=== PATIENT | female | born 1995 | race Caucasian/White ===

== ENCOUNTER → 2021-04-01 15:36 | Outpatient (BNVA) | payer BC, SELFPAY | PROVIDERS: Visit Provider Advanced Practice Midwife ==

== ENCOUNTER 2021-05-13 08:24 | Outpatient (REF) | payer BC, SELFPAY ==
[2021-05-14 01:25] LABS: CT PCR NOT DETECTED (Not Detect.); NG PCR NOT DETECTED (Not Detect.)
== END 2021-05-13 08:25 | disposition home or self-care (01) ==
LOC: HO.LAB 08:24
PROVIDERS: Visit Provider Advanced Practice Midwife
DX: Z01.419 Encounter for gynecological examination (general) (routine) without abnormal findings (principal); Z11.3 Encounter for screening for infections with a predominantly sexual mode of transmission
CPT/HCPCS: 87491; 87591; 88142

== ENCOUNTER → 2021-07-20 14:04 | Outpatient (BNVA) | payer BC, SELFPAY | PROVIDERS: Visit Provider Advanced Practice Midwife | DX: Z30.430 Encounter for insertion of intrauterine contraceptive device (principal) | CPT/HCPCS: 58300; 81025 ==

== ENCOUNTER → 2021-08-24 08:33 | Outpatient (BNVA) | payer BC, SELFPAY | PROVIDERS: Visit Provider Advanced Practice Midwife | DX: Z30.431 Encounter for routine checking of intrauterine contraceptive device (principal) | CPT/HCPCS: 99212 ==

== ENCOUNTER 2022-01-14 11:28 | Outpatient (REF) | payer BC, SELFPAY | END 2022-01-14 11:29 | disposition home or self-care (01) | LOC: HO.LNP 11:28 | PROVIDERS: Visit Provider Internal Medicine | DX: N30.90 Cystitis, unspecified without hematuria (principal) | CPT/HCPCS: 87086; 87088; 87186 ==

== ENCOUNTER 2022-03-05 08:36 | Outpatient (REF) | payer BC, SELFPAY ==
[2022-03-05 09:16] LABS: Binax Internal Control QC Valid; Binax Now Covid-19 Ag Negative (Negative)
== END 2022-03-05 08:37 | disposition home or self-care (01) ==
LOC: HO.HMGCLDS 08:36
PROVIDERS: PCP Internal Medicine; Visit Provider Emergency Medicine
DX: Z20.822 Contact with and (suspected) exposure to COVID-19 (principal); J06.9 Acute upper respiratory infection, unspecified
CPT/HCPCS: 87811; C9803

== ENCOUNTER 2022-05-17 09:02 | Outpatient (REF) | payer BC, SELFPAY ==
[2022-05-17 14:16] LABS: CT PCR NOT DETECTED (Not Detect.); NG PCR NOT DETECTED (Not Detect.)
[2022-05-18 09:27] LABS: BV Int Neg Control Negative (Negative); BV Int Pos Control Positive (Positive)
== END 2022-05-17 09:03 | disposition home or self-care (01) ==
LOC: HO.LNP 09:02
PROVIDERS: Visit Provider Advanced Practice Midwife
DX: Z01.419 Encounter for gynecological examination (general) (routine) without abnormal findings (principal); Z11.3 Encounter for screening for infections with a predominantly sexual mode of transmission
CPT/HCPCS: 87480; 87491; 87510; 87591; 87660

== ENCOUNTER 2022-08-12 11:36 | Outpatient (REF) | payer BC, SELFPAY ==
[2022-08-13 10:02] LABS: BV Int Neg Control Negative (Negative); BV Int Pos Control Positive (Positive)
== END 2022-08-12 11:37 | disposition home or self-care (01) ==
LOC: HO.LNP 11:36
PROVIDERS: Visit Provider Internal Medicine
DX: N76.0 Acute vaginitis (principal); B96.89 Other specified bacterial agents as the cause of diseases classified elsewhere
CPT/HCPCS: 87480; 87510; 87660

== ENCOUNTER 2022-09-15 11:34 | Outpatient (REF) | payer BC, SELFPAY | END 2022-09-15 11:35 | disposition home or self-care (01) | LOC: HO.LAB 11:34 | PROVIDERS: PCP Internal Medicine; Visit Provider Advanced Practice Midwife | DX: Z13.89 Encounter for screening for other disorder (principal) ==

== ENCOUNTER 2022-09-15 12:12 | Outpatient (REF) | payer OTHER, SELFPAY ==
[2022-09-16 03:19] LABS: CT PCR NOT DETECTED (Not Detect.); NG PCR NOT DETECTED (Not Detect.)
[2022-09-16 10:02] LABS: BV Int Neg Control Negative (Negative); BV Int Pos Control Positive (Positive)
== END 2022-09-15 12:13 | disposition home or self-care (01) ==
LOC: HO.LNP 12:12
PROVIDERS: Visit Provider Advanced Practice Midwife
DX: R10.2 Pelvic and perineal pain (principal); N89.8 Other specified noninflammatory disorders of vagina
CPT/HCPCS: 0353U; 87480; 87510; 87660

== ENCOUNTER 2022-09-23 12:47 | Outpatient (REF) | payer OTHER, SELFPAY ==
--- NOTE | ~2022-09-23 | US_ITS ---
EXAMINATION: US PELVIS CLINICAL INFORMATION: Pelvic and perineal pain. COMPARISON: None available. TECHNIQUE: Ultrasound of the pelvis is performed using both transabdominal and transvaginal transducers along with Doppler. Transvaginal imaging is performed due to inadequate visualization transabdominally. FINDINGS: Uterus: The uterus is anteverted and measures 7.7 x 3.6 x 4.5 cm. The double wall endometrial thickness is 4.2 mm. The uterus is smooth in contour and has normal myometrial echogenicity. No visible fibroid. Adnexa: Both ovaries are visualized. There is normal color flow to the adnexa. There is no ovarian torsion. There is no pelvic ascites or fluid collection. Right ovary measures 6.3 x 3.0 x 4.6 cm. Volume 45 mL. There is a 5.7 cm simple cyst. Left ovary measures 5.5 x 3.1 x 3.6 cm. Volume 32 mL. There is a corpus luteal cyst. US/US pelvic and transvaginal IMPRESSION: 5.7 cm simple cyst in the right ovary. Best practice recommendation: This is a probable benign cyst. Recommend follow-up US in 3-6 months. Note: This recommendation does not apply to premenarchal patients and to those with increased risk (genetic, family history, elevated tumor markers or other high-risk factors) of ovarian cancer. Reference: Radiology. 2019 Nov; 293(2):359-371
== END 2022-09-23 12:48 | disposition home or self-care (01) ==
LOC: HO.HMGCX 12:47
PROVIDERS: PCP Internal Medicine; Visit Provider Advanced Practice Midwife
DX: R10.2 Pelvic and perineal pain (principal)
CPT/HCPCS: 76830; 76856

== ENCOUNTER → 2022-10-14 13:33 | Outpatient (BNVA) | payer OTHER, SELFPAY | PROVIDERS: PCP Internal Medicine; Visit Provider Advanced Practice Midwife ==

== ENCOUNTER 2022-12-20 12:44 | Outpatient (REF) | payer OTHER, BC, SELFPAY ==
--- NOTE | ~2022-12-20 | US_ITS ---
EXAMINATION: US PELVIS CLINICAL INFORMATION: History of right ovarian cyst; irregular menses; the last menstrual period is not specified. COMPARISON: Pelvic ultrasound dated 09/23/2022. TECHNIQUE: Ultrasound of the pelvis is performed using both transabdominal and transvaginal transducers along with Doppler. Transvaginal imaging is performed due to inadequate visualization transabdominally. FINDINGS: Uterus: The uterus is anteverted and measures 6.9 x 3.0 x 4.9 cm. An intrauterine device is seen, properly situated within the endometrial canal. The double wall endometrial thickness is very thin and poorly visualized secondary to the patient's intrauterine device. The uterus is smooth in contour and has normal myometrial echogenicity. No visible fibroid. Adnexa: Both ovaries are visualized. There is normal color flow to the adnexa. There is no ovarian torsion. There is a small amount of free fluid in the cul-de-sac. Right ovary measures 3.7 x 2.1 x 2.1 cm, volume 8.2 mL. The right ovary contains a 1.2 cm maximal diameter exophytic dominant simple follicle. Left ovary measures 4.5 x 2.6 x 3.2 cm, volume 19.7 mL. A 1.2 cm exophytic dominant simple follicle is noted. A 1.7 x 5.6 x 1.9 cm resorbing hemorrhagic cyst is noted, with fine central reticulations. US/US pelvic and transvaginal IMPRESSION: 1. Bilateral ovarian cysts are noted, as detailed. The previously noted large right ovarian cyst has resolved in the interim. 2. And intrauterine device is seen, properly situated within the endometrial canal. 3. There is a small amount of free fluid in cul-de-sac.
== END 2022-12-20 12:45 | disposition home or self-care (01) ==
LOC: HO.HMGCX 12:44
PROVIDERS: PCP Internal Medicine; Visit Provider Advanced Practice Midwife
DX: N83.201 Unspecified ovarian cyst, right side (principal)
CPT/HCPCS: 76830; 76856

== ENCOUNTER 2023-01-04 09:06 | Outpatient (AMB) | payer OTHER, SELFPAY ==
[2023-01-04 09:09] VITALS: BP 112/70; BMI 26.2
--- NOTE | 2023-01-04 09:09 | A.OFFVIS_ITS ---
Intake Vital Signs 01/04/23 09:09 Height 5 ft 7 in Weight 167 lb BMI 26.2 BP 112/70 Intake Visit Reasons: US Follow Up Intake Note: pt c/o bv The patient agreed to use of a electromedical service engineer during this encounter. Scribed for RADHA Jimenez by Leticia Perez electromedical service engineer, on 01/04/2023 at 9:46 am EST. Allergies No Known Allergies Allergy (Verified 01/04/23 09:10) HPI HPI Comments History of Present Illness Details She is here to discuss US results regarding history of right ovarian cyst. She also complains of breast pain of right breast x 1-2months, on same side of former fibroadenoma removal. Reports partner has a genital bacterial rash and is using a nasal medication. She reports being prone to BV and wants check due to discharge. Light spotting with cycles with her Kyleena. She denies any pelvic pain. FMHX maternal aunt; breast cancer STD testing offered; she declines. [facility] Medical History Acne vulgaris Alopecia Asthma Fibroadenoma of right breast (Unknown) Mild intermittent asthma Right ovarian cyst Surgical History Hx of wisdom tooth extraction Family History Paternal Grandfather Colon cancer Maternal Grandmother Mesothelioma Maternal Uncle Substance use disorder Mental health disorder Alcoholism Brother Substance use disorder Alcoholism Maternal Grandmother Substance use disorder Mental health disorder Maternal Grandfather Substance use disorder Maternal Aunt Mental health disorder Breast cancer Social History Housing: Condominium Alcohol intake: never Patient Tobacco Use Status: Never used Tobacco e-Cigarette/Vaping Use: Never Used service: No Current occupational status: employed 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 Sexual orientation: Straight/Heterosexual Gender identity: Female Cognitive needs: No Hearing needs: No Vision needs: No Female Reproductive History Menstrual Age of Menarche: 13 control method: progestin IUCD (Kyleena IUD strings palpable 01/04/23) Physical Exam Vital Signs: Last Vital Signs BP 112/70 01/04/23 09:09 BMI result Body Mass Index 26.2 Const General: cooperative, healthy appearing, comfortable, no acute distress, well developed, alert and awake Chest Other: scar at 1-2:00, tender over the 1-2:00 position adjacent to areola Chest palpation & inspection: normal inspection of the chest and normal palpation of entire chest wall Breast/axilla inspection: normal inspection of the breasts and normal inspection of the axillae Breast/axilla palpation: normal palpation of the breasts and normal palpation of the axillae Other: General: Yes bladder normal to palpation External Female Exam: normal external appearance and normal appearance of the urethra Speculum Exam - Vagina: normal appearance of the vagina, normal palpation and normal vaginal discharge Speculum Exam - Cervix: normal appearance of the cervix, normal palpation and Other cervical findings present (IUD strings palpable) Bimanual exam- vagina & uterus: normal bimanual exam, normal palpation, bladder normal to palpation and normal palpation Bimanual Exam- Adnexa, other: normal adnexae and no masses Results Reviewed Results Reviewed: EXAMINATION:? US PELVIS CLINICAL INFORMATION:? History of right ovarian cyst; irregular menses; the last menstrual period is not specified. COMPARISON: Pelvic ultrasound dated 09/23/2022. TECHNIQUE: Ultrasound of the pelvis is performed using both transabdominal and transvaginal transducers along with Doppler. Transvaginal imaging is performed due to inadequate visualization transabdominally. FINDINGS: Uterus: The uterus is anteverted and measures 6.9 x 3.0 x 4.9 cm.? An intrauterine device is seen, properly situated within the endometrial canal. The double wall endometrial thickness is very thin and poorly visualized secondary to the patient's intrauterine device.? The uterus is smooth in contour and has normal myometrial echogenicity. ? No visible fibroid. Adnexa: Both ovaries are visualized. There is normal color flow to the adnexa. There is no ovarian torsion. There is a small amount of free fluid in the cul-de-sac. Right ovary measures 3.7 x 2.1 x 2.1 cm, volume 8.2 mL. The right ovary contains a 1.2 cm maximal diameter exophytic dominant simple follicle. Left ovary measures 4.5 x 2.6 x 3.2 cm, volume 19.7 mL. A 1.2 cm exophytic dominant simple follicle is noted. A 1.7 x 5.6 x 1.9 cm resorbing hemorrhagic cyst is noted, with fine central reticulations. US/US pelvic and transvaginal IMPRESSION: ? 1. Bilateral ovarian cysts are noted, as detailed. The previously noted large right ovarian cyst has resolved in the interim. ? 2. And intrauterine device is seen, properly situated within the endometrial canal. ? 3. There is a small amount of free fluid in cul-de-sac. Assessment & Plan Assessment & Plan (1) Encounter to discuss test results: Code(s): Z71.2 - Person consulting for explanation of examination or test findings Plan: Discussed: US findings of: 1. Bilateral ovarian cysts are noted, as detailed. The previously noted large right ovarian cyst has resolved in the interim. 2. And intrauterine device is seen, properly situated within the endometrial canal. 3. There is a small amount of free fluid in cul-de-sac. BV testing done today. Await results and treat accordingly. Dx. Mammogram and breast US ordered. All of her questions and concerns were addressed to the best of my ability and shared decision making. She is agreeable to plan of care. (2) Vaginal itching: Code(s): N89.8 - Other specified noninflammatory disorders of vagina (3) Breast pain, right: Code(s): N64.4 - Mastodynia Orders: Orders MM tomosynthesis diagnostic BI Today N64.4 - Mastodynia, Z12.31 - Encounter for screening mammogram for malignant neoplasm of breast US breast RT complete Today N64.4 - Mastodynia Bacterial Vaginosis Panel Today N89.8 - Other specified noninflammatory disorders of vagina Coding Level of Care Code Est Pt Level 4 (90279) Diagnoses Encounter to discuss test results Z71.2 Vaginal itching N89.8 Breast pain, right N64.4
== END 2023-01-04 09:57 | disposition home or self-care (01) ==
LOC: HO.HWS 09:06
PROVIDERS: PCP Internal Medicine; Visit Provider Advanced Practice Midwife
DX: Z71.2 Person consulting for explanation of examination or test findings (principal); N89.8 Other specified noninflammatory disorders of vagina; N64.4 Mastodynia
CPT/HCPCS: 99214

== ENCOUNTER 2023-01-04 09:06 | Outpatient (REF) | payer OTHER, SELFPAY ==
[2023-01-05 14:53] LABS: BV Int Neg Control Negative (Negative); BV Int Pos Control Positive (Positive)
== END 2023-01-04 09:07 | disposition home or self-care (01) ==
LOC: HO.LAB 09:06
PROVIDERS: PCP Internal Medicine; Visit Provider Advanced Practice Midwife
DX: N89.8 Other specified noninflammatory disorders of vagina (principal); N64.4 Mastodynia; Z71.2 Person consulting for explanation of examination or test findings
CPT/HCPCS: 87480; 87510; 87660

== ENCOUNTER 2023-02-02 12:50 | Outpatient (REF) | payer OTHER, SELFPAY ==
--- NOTE | ~2023-02-02 | US_ITS ---
EXAMINATION: US DIAGNOSTIC ULTRASOUND BREAST, RIGHT CLINICAL INFORMATION: 28-year-old female complaining of mastoid tiny right breast approximately 1-2:00 axis adjacent to right periareolar. Patient had fibroadenoma removed in this region. Patient states pain comes and goes with her cycle. COMPARISON: None available. TECHNIQUE: Ultrasound of the right breast is performed with real-time islas scale imaging and color Doppler. Special attention was paid to the area of mastodynia as indicated by the patient. FINDINGS: There is no focal suspicious finding. There is no solid mass, cystic abnormality, architectural abnormality, duct ectasia, or edema in the soft tissue planes. Only extremely dense normal-appearing fibrous breast tissue is identified. Results were discussed with the patient at time of visit. US/US breast RT limited mamm only IMPRESSION: No sonographic abnormality or correlate to the region of breast pain right breast 1-2 o'clock axis. Only normal dense parenchyma is imaged. Recommend clinical management of patient's complaints of mastodynia. ASSESSMENT: BI-RADS 1: Negative RECOMMENDATION: 1. Patient should be managed based on the clinical impression. Decision to proceed with biopsy should be based on clinical grounds and degree of clinical concern. This patient's information was entered into a reminder system with a target due date for their next mammogram.
== END 2023-02-02 12:51 | disposition home or self-care (01) ==
LOC: HO.MAMMO 12:50
PROVIDERS: PCP Internal Medicine; Visit Provider Advanced Practice Midwife
DX: N64.4 Mastodynia (principal)
CPT/HCPCS: 76642

== ENCOUNTER → 2023-02-02 12:53 | Outpatient (BNV) | payer OTHER, SELFPAY | PROVIDERS: PCP Internal Medicine; Visit Provider Radiology Diagnostic Radiology | DX: N64.4 Mastodynia (principal) | CPT/HCPCS: 76642 ==

== ENCOUNTER 2023-02-24 13:07 | Outpatient (AMB) | payer OTHER, SELFPAY ==
--- NOTE | 2023-02-24 13:10 | MHC.OFFVIS ---
Intake Vital Signs 02/24/23 13:11 Height 5 ft 7 in Weight 167 lb BMI 26.2 BP 110/70 Intake Visit Reasons: Breast US follow up Intake Note: The patient agreed to use of a medical doctor nuclear medicine during this encounter. Scribed for RADHA Jimenez by Leticia Perez medical doctor nuclear medicine, on 02/24/2023 at 1:32 pm EST. Allergies No Known Allergies Allergy (Verified 02/24/23 13:11) HPI HPI Comments History of Present Illness Details She is here to discuss Breast US results regarding right sided breast pain in the area of the fibroadenoma was removed. She is still experiencing right sided breast pain, it is not worsening. Reports she wears a sports bra. Denies feeling lumps or bumps in breast. [facility] Medical History Breast pain, right Right ovarian cyst Acne vulgaris Mild intermittent asthma Fibroadenoma of right breast (Unknown) Asthma Alopecia Surgical History Hx of wisdom tooth extraction Family History Paternal Grandfather Colon cancer Maternal Grandmother Mesothelioma Maternal Uncle Substance use disorder Mental health disorder Alcoholism Brother Substance use disorder Alcoholism Maternal Grandmother Substance use disorder Mental health disorder Maternal Grandfather Substance use disorder Maternal Aunt Mental health disorder Breast cancer Social History Housing: Condominium Alcohol intake: never Patient Tobacco Use Status: Never used Tobacco e-Cigarette/Vaping Use: Never Used service: No Current occupational status: employed 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 Patient had fibroadenoma removed in this region. Patient states pain comes and goes with her cycle. COMPARISON: None available. TECHNIQUE: Ultrasound of the right breast is performed with real-time islas scale imaging and color Doppler. Special attention was paid to the area of mastodynia as indicated by the patient. FINDINGS: There is no focal suspicious finding. There is no solid mass, cystic abnormality, architectural abnormality, duct ectasia, or edema in the soft tissue planes. Only extremely dense normal-appearing fibrous breast tissue is identified. Results were discussed with the patient at time of visit. US/US breast RT limited mamm only IMPRESSION: No sonographic abnormality or correlate to the region of breast pain right breast 1-2 o'clock axis. Only normal dense parenchyma is imaged. Recommend clinical management of patient's complaints of mastodynia. ASSESSMENT: BI-RADS 1: Negative RECOMMENDATION: 1. Patient should be managed based on the clinical impression. Decision to proceed with biopsy should be based on clinical grounds and degree of clinical concern. This patient's information was entered into a reminder system with a target due date for their next mammogram. Assessment & Plan Assessment & Plan (1) Encounter to discuss test results: Code(s): Z71.2 - Person consulting for explanation of examination or test findings Plan: Discussed: Breast US findings: BI-RADS 1: Negative All of her questions and concerns were addressed to the best of my ability and shared decision making. She is agreeable to plan of care. (2) Breast pain, right: Code(s): N64.4 - Mastodynia Plan: Recommend trying OTC Arnica gel for pain management. Continue to wear comfortable undergarment. Follow up prn, Annual 05/2023. Coding Level of Care Code Est Pt Level 3 (76278) Diagnoses Encounter to discuss test results Z71.2 Breast pain, right N64.4
[2023-02-24 13:11] VITALS: BP 110/70; BMI 26.2
== END 2023-02-24 15:00 | disposition home or self-care (01) ==
PROVIDERS: PCP Internal Medicine; Visit Provider Advanced Practice Midwife
DX: Z71.2 Person consulting for explanation of examination or test findings (principal); N64.4 Mastodynia
CPT/HCPCS: 99213

== ENCOUNTER → 2023-02-24 13:07 | Outpatient (BNVA) | payer OTHER, SELFPAY | PROVIDERS: PCP Internal Medicine; Visit Provider Advanced Practice Midwife ==

== ENCOUNTER 2023-05-14 09:27 | Outpatient (AMB) | payer OTHER, SELFPAY ==
--- NOTE | 2023-05-14 10:42 | AM.OFFWIN_ITS ---
Intake Vital Signs 05/14/23 10:44 Height 5 ft 7 in Weight 171 lb BMI 26.8 BP 118/80 Blood Pressure Location Rt brachial Position Sitting Pulse 105 H Pulse Source Pulse Oximeter Temp 99.1 F Temp Source Oral Pulse Oximetry (%) 96 Oxygen Delivery Method Room Air Intake Visit Reasons: EP, fever,vomiting, nausea ([phone]) Intake Note: Pt is here today c/o fever,vomting, nausea and bodyache x2days Patient Tobacco Use Status: Never used Tobacco Allergies No Known Allergies Allergy (Verified 05/20/23 09:36) Do you need a note to return to daycare/school/sports/work: Yes HPI EP, fever,vomiting, nausea ([phone]) HPI Details Patient is a 28-year-old female comes to the walk-in clinic complaining of 4 days fever symptoms, body aches, malaise, nausea and vomiting. She states that she has a chronic mild cough due to a tickle in the back of her throat, with mild sore throat. Vomiting has resolved today, but other symptoms persist. She did not check for COVID yet. No known sick contacts reported. She states she had influenza last year and symptoms feel similar to her. No diarrhea, abdominal pain, weakness, dizziness or headache, shortness of breath or chest pain, significant cough, or other significant associated symptoms. [facility] Medical History Breast pain, right Right ovarian cyst Acne vulgaris Mild intermittent asthma Fibroadenoma of right breast (Unknown) Asthma Alopecia Surgical History Hx of wisdom tooth extraction Family History Paternal Grandfather Colon cancer Maternal Grandmother Mesothelioma Maternal Uncle Substance use disorder Mental health disorder Alcoholism Brother Substance use disorder Alcoholism Maternal Grandmother Substance use disorder Mental health disorder Maternal Grandfather Substance use disorder Maternal Aunt Mental health disorder Breast cancer Social History Housing: Condominium Alcohol intake: never Patient Tobacco Use Status: Never used Tobacco e-Cigarette/Vaping Use: Never Used service: No Current occupational status: employed 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 Sexual orientation: Straight/Heterosexual Gender identity: Female Cognitive needs: No Hearing needs: No Vision needs: No Female Reproductive History Menstrual Age of Menarche: 13 Review of Systems Const All systems reviewed & are unremarkable except as noted in HPI and below Physical Exam Vital Signs: Last Vital Signs Temp 99.1 F 05/14/23 10:44 Pulse 105 H 05/14/23 10:44 BP 118/80 05/14/23 10:44 Pulse Ox 96 05/14/23 10:44 Oxygen Delivery Method Room Air 05/14/23 10:44 BMI result Body Mass Index 26.8 Const General: cooperative, alert, awake, Physically active, acute distress mild, ill appearing, tired appearing and well groomed; No comfortable, anxious, diaphoretic, intoxicated appearing or poor hygiene Nutritional Appearance: average body habitus Orientation/consciousness: patient oriented x3 Limitations: no limitations HEENT Head: Yes normal to inspection, Yes normocephalic and Yes atraumatic Ears: hearing grossly normal bilaterally, external ears normal, TM's normal bilaterally and EAC's normal General nose exam: Normal external nose present, Normal nares present, Normal nasal mucous membranes and turbinates present, Normal septum present and No nasal discharge present Face and sinus: Yes normal facial exam, Yes sinuses nontender and Yes face symmetric Mouth: Normal oral and palatal mucosa present, lip normal and tongue normal Throat: Yes abnormal tonsil (mildly erythematous bilaterally), No peritonsillar mass, No uvular edema and No cobblestoning Eyes General: appearance normal, both eyes and all related structures Neck Neck: Yes normal visual inspection, Yes no lymphadenopathy, Yes trachea midline, Yes supple and No anterior neck swelling Resp Effort & Inspection: normal respiratory effort, able to speak in complete sentences, no audible wheezes, no cough, no grunting, not labored, no nasal flaring, no retractions and symmetric chest movement Auscultation: clear to auscultation bilaterally, no crackles, no rales, no rhonchi, no wheezes, lung sounds not diminished and No rub present Cardio Palpation: normal PMI Rate: regular rate Rhythm: regular rhythm Heart sounds: S1 normal heart sound present and S2 normal heart sound present Skin Other: Good color, warm and dry Neuro General: patient oriented x3 Psych Appearance: grossly normal Mental Status: mental status grossly normal Speech and movement: Normal speech and movement present Affect: normal affect Attitude: cooperative Thought process: Normal thought process present Insight: Good insight present (Psych) Judgement: Good judgement present (Psych) Assessment & Plan Assessment & Plan (1) Viral syndrome: Code(s): B34.9 - Viral infection, unspecified Plan: Patient is a 28-year-old female with apparent viral syndrome. Pending results of COVID testing as well as flu COVID and RSV PCR. Patient states symptoms feel similar to when she had flu last year. She is 4 days into symptoms and too late for Tamiflu at this point. She is still symptomatic so cannot return to work at this time, so I wrote her a note to excuse her. Adequate hydration and supportive care was discussed. She knows to follow up if symptoms persist or worsen. Orders: Orders SARS-CoV2/FLU/RSV 05/14/23 R05.9 - Cough, unspecified BinaxNOW Covid-19 Ag 05/14/23 Z20.822 - Contact with and (suspected) exposure to COVID-19 Medications: New ondansetron 4 mg PO TID PRN 15 tabs 0RF nausea and vomiting 5 days Coding Level of Care Code Est Pt Level 4 (78604) Diagnoses Viral syndrome B34.9
[2023-05-14 10:44] VITALS: BP 118/80; PULSE 105; TEMP 37.3; O2SAT 96; BMI 26.8
== END 2023-05-14 11:28 | disposition home or self-care (01) ==
PROVIDERS: PCP Internal Medicine; Visit Provider Physician Assistant Medical
DX: B34.9 Viral infection, unspecified (principal)
CPT/HCPCS: 99051; 99214

== ENCOUNTER 2023-05-14 11:18 | Outpatient (REF) | payer OTHER, SELFPAY ==
[2023-05-14 11:34] LABS: Binax Internal Control QC Valid; Binax Now Covid-19 Ag Positive (Negative); Binax Performed by: PAULP
[2023-05-14 14:31] LABS: Influenza A PCR NEGATIVE (Negative); Influenza B PCR NEGATIVE (Negative); Resp Syncy Virus RNA Qual PCR NEGATIVE (Negative); SARS COV2 PCR INHOUSE POSITIVE (Negative)
== END 2023-05-14 11:19 | disposition home or self-care (01) ==
LOC: HO.HMGCLDS 11:18
PROVIDERS: PCP Internal Medicine; Visit Provider Physician Assistant Medical
DX: Z11.52 Encounter for screening for COVID-19 (principal); Z20.822 Contact with and (suspected) exposure to COVID-19; R05.9 Cough, unspecified
CPT/HCPCS: 0241U; 87811; C9803

== ENCOUNTER 2023-05-20 08:52 | Outpatient (REF) | payer BC, SELFPAY ==
[2023-05-21 11:56] LABS: BV Int Neg Control Negative (Negative); BV Int Pos Control Positive (Positive)
== END 2023-05-20 08:53 | disposition home or self-care (01) ==
LOC: HO.LNP 08:52
PROVIDERS: Visit Provider Advanced Practice Midwife
DX: Z01.419 Encounter for gynecological examination (general) (routine) without abnormal findings (principal); N76.0 Acute vaginitis
CPT/HCPCS: 87480; 87510; 87660

== ENCOUNTER 2023-05-20 08:52 | Outpatient (AMB) | payer OTHER, SELFPAY ==
--- NOTE | 2023-05-20 09:14 | A.OFFVIS_ITS ---
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 Doing well with no concerns. Some random spotting with the IUD. Frequent BV, wants testing due to her discharge. She tries to eat healthy and stays active with exercise. Currently is sexually active. STI screening offered; she declines. Has same monogamous partner. Last pap smear 2020, negative. [facility], [facility] Medical History Breast pain, right Right ovarian cyst Acne vulgaris Mild intermittent asthma Fibroadenoma of right breast (Unknown) Asthma Alopecia Surgical History Hx of wisdom tooth extraction Family History Paternal Grandfather Colon cancer Maternal Grandmother Mesothelioma Maternal Uncle Substance use disorder Mental health disorder Alcoholism Brother Substance use disorder Alcoholism Maternal Grandmother Substance use disorder Mental health disorder Maternal Grandfather Substance use disorder Maternal Aunt Mental health disorder Breast cancer Social History Housing: Condominium Alcohol intake: never Patient Tobacco Use Status: Never used Tobacco e-Cigarette/Vaping Use: Never Used service: No Current occupational status: employed 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 Sexual orientation: Straight/Heterosexual Gender identity: Female Cognitive needs: No Hearing needs: No Vision needs: No Female Reproductive History Menstrual Age of Menarche: 13 Duration of menses: <3 days control method: progestin IUCD Total pregnancies: 0 Date of last pap smear: 05/14/21 (negative) Review of Systems Const All systems reviewed & are unremarkable except as noted in HPI and below Reports as per HPI Eyes Reports no additional complaints ENT Reports no additional complaints Card Reports no additional complaints Resp Reports no additional complaints GI Reports as per HPI and Reports no additional complaints Reports as per HPI Musc Reports no additional complaints Skin/Breast Reports as per HPI Neuro Reports no additional complaints Psych Reports no additional complaints Endo Reports no additional complaints Dl/Lymph Reports no additional complaints Aller/Immun Reports no additional complaints Physical Exam Vital Signs: Last Vital Signs BP 104/64 05/20/23 09:35 BMI result Body Mass Index 27.1 Const General: cooperative, healthy appearing, no acute distress, well developed and alert Orientation/consciousness: patient oriented x3 HEENT Head: Yes normal to inspection Eyes General: appearance normal, both eyes and all related structures Neck Neck: Yes normal visual inspection Thyroid: Thyroid normal Chest Chest palpation & inspection: normal inspection of the chest and other (no puckering, dimpling, peau de orange, retraction, discharge, masses) Breast/axilla inspection: normal inspection of the breasts Breast/axilla palpation: normal palpation of the breasts Resp Effort & Inspection: normal respiratory effort GI Inspection: Yes normal to inspection Palpation (GI): Soft to palpation Rectal Exam - Female: deferred General: Yes bladder normal to palpation External Female Exam: normal external appearance and normal appearance of the urethra Speculum Exam - Vagina: normal appearance of the vagina, normal palpation and normal vaginal discharge Speculum Exam - Cervix: normal appearance of the cervix, normal palpation and Other cervical findings present (IUD strings present) Bimanual exam- vagina & uterus: normal bimanual exam, normal palpation, uterine size normal, bladder normal to palpation, normal palpation and non-tender Bimanual Exam- Adnexa, other: no masses Skin General skin exam: no rashes or lesions noted Rashes: no rashes Neuro General: patient oriented x3 Cognition (Neuro): normal cognition Extrem General: Yes normal to inspection Psych Attitude: cooperative Thought process: Normal thought process present Assessment & Plan Assessment & Plan (1) Encounter for well woman exam with routine gynecological exam: Code(s): Z01.419 - Encounter for gynecological examination (general) (routine) without abnormal findings Plan Discussed: Current recommendations for pap smears per ASCCP guidelines. Breast awareness and periodic breast exams. Maintain a healthy lifestyle including a well balanced diet and routine exercise. BV panel taken. Discussed use of boric acid. All of her questions and concerns were addressed to the best of my ability. RTO in one year for annual breadman examination. Orders: Orders Bacterial Vaginosis Panel Today N76.0 - Acute vaginitis Coding Level of Care Code Est Pt Prev Care 18-39y(33511) Diagnoses Encounter for well woman exam with routine gynecological exam Z01.419
[2023-05-20 09:35] VITALS: BP 104/64; BMI 27.1
== END 2023-05-20 09:57 | disposition home or self-care (01) ==
PROVIDERS: Visit Provider Advanced Practice Midwife
DX: Z01.419 Encounter for gynecological examination (general) (routine) without abnormal findings (principal)
CPT/HCPCS: 99395

== ENCOUNTER 2023-07-26 15:48 | Outpatient (AMB) | payer OTHER, SELFPAY ==
--- NOTE | 2023-07-26 15:52 | AM.OFFWIN_ITS ---
Intake Vital Signs 07/26/23 15:55 Height 5 ft 7 in Weight 170 lb BMI 26.6 BP 110/62 Blood Pressure Location Lt brachial Position Sitting Pulse 81 Pulse Source Pulse Oximeter Temp 98.6 F Temp Source Oral Pulse Oximetry (%) 96 Oxygen Delivery Method Room Air Intake Visit Reasons: EST/fever/congestion/ sore throat (lobby masked) Intake Note: pt is here for c.o fever, congestion, sore throat for about a week Patient Tobacco Use Status: Never used Tobacco Allergies No Known Allergies Allergy (Verified 07/26/23 15:54) Medication List - Last Reconciled 07/26/23 by SUDEEP Fermin albuterol sulfate 90 mcg/actuation 2 puffs inhalation Q6H PRN amoxicillin 875 mg PO BID 7 days [CTP-543 PO] levonorgestrel (Kyleena) 0 device intrauterine ONCE Do you need a note to return to daycare/school/sports/work: Yes HPI HPI Comments History of Present Illness Details 28-year-old female presents today compla ining of congestion sinus tenderness mild cough for over 5 days. She also complains of fatigue PFSH Medical History Breast pain, right Right ovarian cyst Acne vulgaris Mild intermittent asthma Fibroadenoma of right breast (Unknown) Asthma Alopecia Surgical History Hx of wisdom tooth extraction Family History Paternal Grandfather Colon cancer Maternal Grandmother Mesothelioma Maternal Uncle Substance use disorder Mental health disorder Alcoholism Brother Substance use disorder Alcoholism Maternal Grandmother Substance use disorder Mental health disorder Maternal Grandfather Substance use disorder Maternal Aunt Mental health disorder Breast cancer Social History Housing: Condominium Alcohol intake: never Patient Tobacco Use Status: Never used Tobacco e-Cigarette/Vaping Use: Never Used service: No Current occupational status: employed 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 Sexual orientation: Straight/Heterosexual Gender identity: Female Cognitive needs: No Hearing needs: No Vision needs: No Female Reproductive History Menstrual Age of Menarche: 13 Review of Systems Const Reports body aches, Reports chills, Reports fatigue, Reports fever(s), Reports headache(s) and Reports weakness ENT Reports headache(s), Reports nasal congestion, Reports nasal discharge, Reports sinus pain, Reports sinus pressure and Reports sore throat Resp Reports chest congestion and Reports cough Musc Reports myalgias Neuro Reports headache(s), Reports paresthesias and Reports weakness Endo Reports fatigue Physical Exam Vital Signs: Last Vital Signs Temp 98.6 F 07/26/23 15:55 Pulse 81 07/26/23 15:55 BP 110/62 07/26/23 15:55 Pulse Ox 96 07/26/23 15:55 Oxygen Delivery Method Room Air 07/26/23 15:55 BMI result Body Mass Index 26.6 HEENT Head: Yes normal to inspection, Yes normocephalic and Yes atraumatic Ears: hearing grossly normal bilaterally, external ears normal, TM's normal bilaterally, TM normal on the right, TM normal on the left and EAC's normal General nose exam: Normal external nose present Face and sinus: Yes normal facial exam and Yes sinus tenderness Mouth: Normal oral and palatal mucosa present Throat: Yes posterior oropharynx abnormal (erythema) Eyes General: appearance normal, both eyes and all related structures Resp Effort & Inspection: normal respiratory effort Auscultation: clear to auscultation bilaterally Cardio Rate: regular rate Rhythm: regular rhythm Results AMB Rapid Strep AMB Rapid Strep Negative Last Edit by Moi Chapa CMA on 07/26/23 16 :09 Assessment & Plan Assessment & Plan (1) Sinusitis: Code(s): J32.9 - Chronic sinusitis, unspecified Plan: patient's rapid strep was negative today put her on amoxicillin for sinusitis. She will also be tested for flu and COVID. Follow-up with PCP as needed Plan See plan Orders: Orders AMB Rapid Strep Screen Today Z13.9 - Encounter for screening, unspecified SARS-CoV2/FLU/RSV Today R09.89 - Other specified symptoms and signs involving the circulatory and respiratory systems Medications: New amoxicillin 875 mg PO BID 7 days 14 tabs 0RF Coding Level of Care Code Est Pt Level 3 (47768) Diagnoses Sinusitis J32.9
[2023-07-26 15:55] VITALS: BP 110/62; PULSE 81; TEMP 37; O2SAT 96; BMI 26.6
== END 2023-07-26 16:47 | disposition home or self-care (01) ==
PROVIDERS: PCP Internal Medicine; Visit Provider Physician Assistant Medical
DX: J32.9 Chronic sinusitis, unspecified (principal)
CPT/HCPCS: 87880; 99213

== ENCOUNTER 2023-07-26 16:06 | Outpatient (REF) | payer OTHER, SELFPAY ==
[2023-07-27 12:35] LABS: Influenza A PCR NEGATIVE (Negative); Influenza B PCR NEGATIVE (Negative); Resp Syncy Virus RNA Qual PCR NEGATIVE (Negative); SARS COV2 PCR INHOUSE NEGATIVE (Negative)
== END 2023-07-26 16:07 | disposition home or self-care (01) ==
LOC: HO.LAB 16:06
PROVIDERS: Visit Provider Physician Assistant Medical
DX: Z11.52 Encounter for screening for COVID-19 (principal); Z20.822 Contact with and (suspected) exposure to COVID-19; R09.89 Other specified symptoms and signs involving the circulatory and respiratory systems
CPT/HCPCS: 0241U

== ENCOUNTER 2023-08-24 09:42 | Outpatient (REF) | payer OTHER, SELFPAY ==
[2023-08-25 14:04] LABS: BV Int Neg Control Negative (Negative); BV Int Pos Control Positive (Positive)
== END 2023-08-24 09:43 | disposition home or self-care (01) ==
LOC: HO.LAB 09:42
PROVIDERS: PCP Internal Medicine; Visit Provider Advanced Practice Midwife
DX: N89.8 Other specified noninflammatory disorders of vagina (principal)
CPT/HCPCS: 87480; 87510; 87660

== ENCOUNTER 2023-08-24 09:42 | Outpatient (AMB) | payer OTHER, SELFPAY ==
--- NOTE | 2023-08-24 09:49 | MHC.OFFVIS ---
Intake Vital Signs 08/24/23 09:50 Height 5 ft 7 in BP 104/70 Intake Visit Reasons: frequent BV Wearing Apparel Presser: Wearing Apparel Presser Present (Leslie) Allergies No Known Allergies Allergy (Verified 08/24/23 09:49) HPI HPI Comments History of Present Illness Details Patient is here today with concerns that she has an increased vaginal discharge some external irritation she is prone to yeast and bacteria. She has not used a boric acid protocol routinely. She denies any pelvic pain or urinary symptoms. She was contemplating removing her IUD because of her symptoms that are reoccurring since her IUD was inserted. It was recommended she have a reliable control due to being on SAMIR inhibitors. [facility] Medical History Breast pain, right Right ovarian cyst Acne vulgaris Mild intermittent asthma Fibroadenoma of right breast (Unknown) Asthma Alopecia Surgical History Hx of wisdom tooth extraction Family History Paternal Grandfather Colon cancer Maternal Grandmother Mesothelioma Maternal Uncle Substance use disorder Mental health disorder Alcoholism Brother Substance use disorder Alcoholism Maternal Grandmother Substance use disorder Mental health disorder Maternal Grandfather Substance use disorder Maternal Aunt Mental health disorder Breast cancer Social History Housing: Condominium Alcohol intake: never Patient Tobacco Use Status: Never used Tobacco e-Cigarette/Vaping Use: Never Used service: No Current occupational status: employed 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 Sexual orientation: Straight/Heterosexual Gender identity: Female Cognitive needs: No Hearing needs: No Vision needs: No Female Reproductive History Menstrual Age of Menarche: 13 Review of Systems Const All systems reviewed & are unremarkable except as noted in HPI and below Physical Exam Vital Signs: Last Vital Signs BP 104/70 08/24/23 09:50 Const General: cooperative, healthy appearing and no acute distress Orientation/consciousness: patient oriented x3 GI Inspection: Yes normal to inspection Palpation (GI): Soft to palpation and Other GI palpation findings present (Nontender) Rectal Exam - Female: visual inspection normal General: Yes bladder normal to palpation External Female Exam: normal appearance of the urethra Speculum Exam - Vagina: normal appearance of the vagina, normal palpation, normal vaginal discharge and other (IUD strings present) Speculum Exam - Cervix: normal appearance of the cervix and normal palpation Bimanual exam- vagina & uterus: normal bimanual exam, normal palpation, uterine size normal, bladder normal to palpation, normal palpation, uterine shape normal and non-tender Bimanual Exam- Adnexa, other: normal adnexae Neuro General: patient oriented x3 Assessment & Plan Assessment & Plan (1) Vaginal irritation: Code(s): N89.8 - Other specified noninflammatory disorders of vagina Plan: BV panel obtained await results for plan of care. Discussed not removing the IUD at this time, but to start probiotics as a preventative twice a week for 6-12 months consistently. All of her questions and concerns were addressed to the best of my ability and shared decision making. She is agreeable to the plan of care. This note is constructed using voice recognition software. While every effort has been made to ensure accuracy, neurology technician errors may have been included. Coding Level of Care Code Est Pt Level 3 (90739) Diagnoses Vaginal irritation N89.8
[2023-08-24 09:50] VITALS: BP 104/70
== END 2023-08-24 10:17 | disposition home or self-care (01) ==
LOC: HO.HWS 09:42
PROVIDERS: PCP Internal Medicine; Visit Provider Advanced Practice Midwife
DX: N89.8 Other specified noninflammatory disorders of vagina (principal)
CPT/HCPCS: 99213

== ENCOUNTER 2023-09-16 07:58 | Outpatient (AMB) | payer OTHER, SELFPAY ==
[2023-09-16 08:00] VITALS: BP 102/80; PULSE 86; O2SAT 98; BMI 26.8
--- NOTE | 2023-09-16 08:00 | A.OFFPC_ITS ---
Vital Signs 09/16/23 08:00 Height 5 ft 7 in Weight 171 lb BMI 26.8 BP 102/80 Blood Pressure Location Rt brachial Position Sitting Pulse 86 Pulse Source Pulse Oximeter Pulse Oximetry (%) 98 Oxygen Delivery Method Room Air Intake Visit Reasons: PE Intake Note: Pt is here today for her PE: last papsmear 05/14/21 Allergies No Known Allergies Allergy (Verified 09/16/23 08:38) Medication List - Last Reconciled 09/16/23 by Emerald Britt MD albuterol sulfate 90 mcg/actuation 2 puffs inhalation Q6H PRN [CTP-543 PO] levonorgestrel (Kyleena) 0 device intrauterine ONCE Tobacco use date assessed: 09/16/23 Dental Screening Dental Screen Date: 09/16/23 Did you have a dental visit in the last 12 months?: No Was dental information given to patient?: Patient has dentist HPI PE HPI Details 28-year-old lady here today for her phys ical exam. She has mild intermittent asthma, currently stable and controlled with only a rescue inhaler, rarely needing to use it. She is up-to-date with her cervical cancer screening, done in 2020 with negative findings, goes to [facility] [place] [facility]. Has been feeling well with no complaints at present time. She has history of alopecia currently in a study at [place] for the last 2 years now. Complains of intermitten pain in anterior knee, with occasional puffiness noted, worse with walking or standing for extended periods of time. [facility] Medical History (Updated 09/16/23 @ 08:58 by Emerald Britt MD) History of alopecia Breast pain, right Right ovarian cyst Acne vulgaris Mild intermittent asthma Fibroadenoma of right breast (Unknown) Surgical History Hx of wisdom tooth extraction Family History Paternal Grandfather Colon cancer Maternal Grandmother Mesothelioma Maternal Uncle Substance use disorder Mental health disorder Alcoholism Brother Substance use disorder Alcoholism Maternal Grandmother Substance use disorder Mental health disorder Maternal Grandfather Substance use disorder Maternal Aunt Mental health disorder Breast cancer Social History Housing: Condominium Alcohol intake: never Patient Tobacco Use Status: Never used Tobacco e-Cigarette/Vaping Use: Never Used service: No Current occupational status: employed 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 1. Little interest or pleasure in doing things: not at all 2. Feeling down, depressed, or hopeless: not at all 3. Trouble falling or staying asleep, or sleeping too much: not at all 4. Feeling tired or having little energy: several days 5. Poor appetite or overeating: not at all 6. Feeling bad about yourself - or that you are a failure or have let yourself or your family down: several days 7. Trouble concentrating on things, such as reading the newspaper or watching television: not at all 8. Moving or speaking so slowly that other people could have noticed. Or the opposite - being so fidgety or restless that you have been moving around a lot more than usual: not at all 9. Thoughts that you would be better off or of hurting yourself in some way: not at all Total score: 2 Depression Screening Interpretation: Negative Depression Screening Done: Yes 68907 - PHQ-9 Billing: Yes Source: Developed by Drs. Isauro Emanuel, Danika Bey, Corky Peterson and colleagues, with an educational jose from [employer]. Thrive Questionnaire Date Thrive assessed: 09/16/23 I am a: Patient What is your living situation today?: I have a steady place to live Within the past 12 months, did the food you bought not last and you didn't have the money to get more?: Never true Within the past 12 months, did you worry whether your food would run out before you got money to buy more?: Never true Do you have trouble paying for medicines?: No Do you have trouble getting transportation to medical appointments?: No Do you have trouble paying your heating and electricity bill?: No Do you have trouble taking care of your child, family member or friend?: No Do you have trouble with day-to-day activities such as bathing, preparing meals, shopping, managing finances, etc.?: No Are you currently unemployed and looking for a job?: No Are you interested in more education?: No THRIVE Score: 0 AUDIT C Alcohol Use Questionnaire (AUDIT-C) 1. How often do you have a drink containing alcohol?: Never Total Score: 0 ENRIQUE-7 AMB Questionnaire ENRIQUE-7 Date ENRIQUE - 7 assessed: 09/16/23 Feeling nervous, anxious, or on edge: 0 = Not at all Not being able to stop or control worryin = Not at all Worrying too much about different things: 0 = Not at all Trouble relaxin = Not at all Being so restless that it is hard to sit still: 0 = Not at all Becoming easily annoyed or irritable: 0 = Not at all Feeling afraid as if something awful might happen: 0 = Not at all Total ENRIQUE-7 score (0-4 normal; 5-9 mild; 10-14 moderate; 15-21 severe): 0 Source: Developed by Drs. Isauro Emanuel, Danika Bey, Corky Peterson and colleagues, with an educational jose from [employer]. ENRIQUE-7 Assessment Billing ENRIQUE-7 Assessment Tool: ENRIQUE-7 Assessment 33296 ACT Questionnaire In the past 4 weeks, how much of the time did your asthma keep you from getting as much done at work, school or at home?: None of the time During the past 4 weeks, how often have you had shortness of breath?: Not at all During the past 4 weeks, how often did your asthma symptoms wake you up at night or earlier than usual in the morning?: Not at all During the past 4 weeks, how often have you had to use your rescue inhaler or nebulizer medication?: Not at all How would you rate your asthma control during the past 4 weeks?: Completely controlled Score: 25 Review of Systems Const Reports no additional complaints Eyes Reports no additional complaints ENT Denies dizziness, Denies nasal congestion, Denies nasal discharge and Denies post nasal drip Card Denies rapid heart rate, Denies dyspnea and Denies dyspnea on exertion Resp Denies dyspnea and Denies dyspnea on exertion GI Denies dyspepsia and Denies heartburn Reports no additional complaints Musc Reports as per HPI, Denies joint swelling, Denies muscle cramps and Denies muscle weakness Skin/Breast Details: Patient declined fast exam, patient states that she was just recently at her OBGYN who did the exam already, Reports as per HPI Neuro Denies dizziness, Denies focal weakness and Denies Other visual disturbances Psych Reports no additional complaints Endo Reports no additional complaints Dl/Lymph Reports no additional complaints Aller/Immun Reports no additional complaints Physical exam (Primary Care) Vital Signs: Last Vital Signs Pulse 86 09/16/23 08:00 BP 102/80 09/16/23 08:00 Pulse Ox 98 09/16/23 08:00 Oxygen Delivery Method Room Air 09/16/23 08:00 BMI result Body Mass Index 26.8 Tobacco/Smoking Status: Tobacco use Status Tobacco use date assessed 09/16/23 09/16/23 08:02 Patient Tobacco Use Status Never used Tobacco 09/16/23 08:02 e-Cigarette/Vaping Use Never Used 09/16/23 08:02 PHQ-9: PHQ-9 Score PHQ-9: Total score 2 09/16/23 09:07 Depression Screening Interpretation: Negative Thrive Assessment: Date of Thrive Assessment Date Thrive assessed 09/16/23 09/16/23 08:06 Const Other: Alert oriented x3, no acute distress noted, ambulatory normal gait Nutritional Appearance: average body habitus Orientation/consciousness: patient oriented x3 HENAL Head: Yes normocephalic and Yes atraumatic Ears: hearing grossly normal bilaterally, external ears normal, TM's normal bilaterally and EAC's normal General nose exam: Normal external nose present Face and sinus: Yes normal facial exam and Yes face symmetric Mouth: Normal oral and palatal mucosa present, oropharynx normal and moist mucous membranes Eyes General: appearance normal, both eyes and all related structures Neck Neck: Yes no lymphadenopathy and Yes supple Thyroid: Thyroid normal Chest Other: Patient declined breast exam as she states it was already done at her OBGYN on recent visit Resp Effort & Inspection: normal respiratory effort and able to speak in complete sentences Auscultation: clear to auscultation bilaterally Cardio Other: S1-S2 present regular rate and rhythm GI Other: Normal bowel sounds, soft, nontender, no mass palpated General: Yes no CVA tenderness and Yes deferred (Currently sees [facility] for her routine Pap and pelvic exam, was recently ) Back/Spine/Pelvis Back: no CVA tenderness and No back tenderness Skin Other: Multiple tattoos on arms, and under right breast Neuro General: patient oriented x3, tone normal, moves all extremities, no focal motor deficits and CN's II-XI intact bilaterally Extrem General: Yes full ROM, Yes no clubbing, cyanosis or edema, Yes no calf tenderness and Yes normal gait Psych Appearance: grossly normal and well kempt Mental Status: mental status grossly normal Speech and movement: Normal speech and movement present Affect: normal affect Attitude: cooperative Thought process: Normal thought process present Thought content: Normal thought content present Assessment and Plan Assessment & Plan (1) Annual visit for general adult medical examination with abnormal findings: Code(s): Z00.01 - Encounter for general adult medical examination with abnormal findings Plan: Will check appropriate labs. Recommended dental visit every 6 months and regular eye exams, at least every 2 years. Take adequate calcium in diet and vitamin-D 3 at 2000 IU per cap once a day, in addition to weight-bearing exercises to help maintain good muscle tone and weight control. Instructed to do self-breast exam, and start yearly mammogram at age 42. Goes to [facility] for her routine Pap and 5 exam, currently up-to-date, last done 2020. Recommended pneumonia vaccine, but patient declined, advised to get her yearly flu shot, currently up-to-date with her Tdap. Declined getting further COVID booster shot (2) Mild intermittent asthma: Code(s): J45.20 - Mild intermittent asthma, uncomplicated Qualifiers: Asthma complication type: uncomplicated Qualified Code(s): J45.20 - Mild intermittent asthma, uncomplicated Plan: Rarely needing to use her albuterol inhaler, recommended to get the pneumonia vaccination, but patient declined today, reminded to get her yearly flu shot, does not want to get any further COVID vaccine. (3) History of alopecia: Comment: in trial study Chi inhibator started 01/2021 done in [place] Code(s): Z87.2 - Personal history of diseases of the skin and subcutaneous tissue Plan: Alopecia has resolved, currently participating in a study at [place] regarding alopecia Orders: Orders Alanine Aminotransferase 09/16/23 J45.20 - Mild intermittent asthma, uncomplicated, Z00.01 - Encounter for general adult medical examination with abnormal findings, Z87.2 - Personal history of diseases of the skin and subcutaneous tissue Aspartate Amino Transferase 09/16/23 J45.20 - Mild intermittent asthma, uncomplicated, Z00.01 - Encounter for general adult medical examination with abnormal findings, Z87.2 - Personal history of diseases of the skin and subcutaneous tissue Lipid Panel 09/16/23 J45.20 - Mild intermittent asthma, uncomplicated, Z00.01 - Encounter for general adult medical examination with abnormal findings, Z87.2 - Personal history of diseases of the skin and subcutaneous tissue Glucose Fasting 09/16/23 J45.20 - Mild intermittent asthma, uncomplicated, Z00.01 - Encounter for general adult medical examination with abnormal findings, Z87.2 - Personal history of diseases of the skin and subcutaneous tissue Vitamin D 25-OH Total 09/16/23 J45.20 - Mild intermittent asthma, uncomplicated, Z00.01 - Encounter for general adult medical examination with abnormal findings, Z87.2 - Personal history of diseases of the skin and subcutaneous tissue Hemoglobin and Hematocrit 09/16/23 J45.20 - Mild intermittent asthma, uncomplicated, Z00.01 - Encounter for general adult medical examination with abnormal findings, Z87.2 - Personal history of diseases of the skin and subcutaneous tissue Coding Level of Care Code Est Pt Prev Care 18-39y(63753) Diagnoses Annual visit for general adult medical examination with abnormal findings Z00.01 Mild intermittent asthma without complication J45.20 Asthma complication type: uncomplicated History of alopecia Z87.2 Additional Codes ENRIQUE-7 Assessment Billing - ENRIQUE-7 Assessment Tool: ENRIQUE-7 Assessment [id number] ([id number])
== END 2023-09-16 08:53 | disposition home or self-care (01) ==
PROVIDERS: Visit Provider Internal Medicine
DX: Z00.01 Encounter for general adult medical examination with abnormal findings (principal); J45.20 Mild intermittent asthma, uncomplicated; Z87.2 Personal history of diseases of the skin and subcutaneous tissue
CPT/HCPCS: 99395

== ENCOUNTER 2023-09-21 08:29 | Outpatient (REF) | payer OTHER, SELFPAY ==
[2023-09-21 10:56] LABS: Hematocrit 40.1 % (37.0-47.0); Hemoglobin 13.2 g/dl (12.0-16.0)
[2023-09-21 11:14] LABS: Vitamin D 25-OH Total 26.2 ng/mL (>30)
[2023-09-21 11:16] LABS: Alanine Aminotransferase 18 U/L (0-31); Aspartate Amino Transferase 25 U/L (5-31); Cholesterol 148 mg/dL (<200); Glucose Fasting 81 mg/dL (60-99); HDL Cholesterol 74 mg/dL (>40); LDL Cholesterol Calculated 69 mg/dL (<100); Triglycerides 29 mg/dL (<150)
== END 2023-09-21 08:30 | disposition home or self-care (01) ==
LOC: HO.HMGCLDS 08:29
PROVIDERS: PCP Internal Medicine; Visit Provider Internal Medicine
DX: Z00.01 Encounter for general adult medical examination with abnormal findings (principal); Z13.6 Encounter for screening for cardiovascular disorders; J45.20 Mild intermittent asthma, uncomplicated; Z87.2 Personal history of diseases of the skin and subcutaneous tissue
CPT/HCPCS: 36415; 80061; 82306; 82947; 84450; 84460; 85014; 85018

== ENCOUNTER 2024-01-04 11:18 | Outpatient (AMB) | payer OTHER, SELFPAY ==
[2024-01-04 11:43] VITALS: BP 104/70; PULSE 72; O2SAT 98; BMI 26.9
--- NOTE | 2024-01-04 11:43 | A.OFFPC_ITS ---
Vital Signs 01/04/24 11:43 Height 5 ft 7 in Weight 172 lb BMI 26.9 BP 104/70 Blood Pressure Location Lt brachial Position Sitting Pulse 72 Pulse Source Pulse Oximeter Pulse Oximetry (%) 98 Intake Visit Reasons: Constant bloating Intake Note: pt is here for constant bloating, patient also stated shes been getting constant bv and yeast issues and also has family hx of GI problems Estate Administrator Required: No Allergies No Known Allergies Allergy (Verified 01/04/24 12:03) Medication List - Last Reconciled 01/04/24 by Emerald Britt MD albuterol sulfate 90 mcg/actuation 2 puffs inhalation Q6H PRN [CTP-543 PO] levonorgestrel (Kyleena) 0 device intrauterine ONCE Tobacco use date assessed: 09/16/23 Dental Screening Dental Screen Date: 09/16/23 HPI Constant bloating HPI Details 28-year-old lady here today complaining of recurrent abdominal gassiness, bloating, has been having intermittent episodes of constipation which aggravates above symptoms. Has tried [id number] stool softeners, laxatives which affords only temporary relief. Has increase dietary fiber intake again which has not been helping much [facility] Medical History (Updated 01/04/24 @ 12:11 by Emerald Britt MD) Irritable bowel syndrome with constipation History of alopecia Breast pain, right Right ovarian cyst Acne vulgaris Mild intermittent asthma Fibroadenoma of right breast (Unknown) Surgical History Hx of wisdom tooth extraction Family History Paternal Grandfather Colon cancer Maternal Grandmother Mesothelioma Maternal Uncle Substance use disorder Mental health disorder Alcoholism Brother Substance use disorder Alcoholism Maternal Grandmother Substance use disorder Mental health disorder Maternal Grandfather Substance use disorder Maternal Aunt Mental health disorder Breast cancer Social History Housing: Condominium Alcohol intake: never Patient Tobacco Use Status: Never used Tobacco e-Cigarette/Vaping Use: Never Used service: No Current occupational status: employed 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 1. Little interest or pleasure in doing things: not at all 2. Feeling down, depressed, or hopeless: not at all 3. Trouble falling or staying asleep, or sleeping too much: not at all 4. Feeling tired or having little energy: not at all 5. Poor appetite or overeating: not at all 6. Feeling bad about yourself - or that you are a failure or have let yourself or your family down: not at all 7. Trouble concentrating on things, such as reading the newspaper or watching television: not at all 8. Moving or speaking so slowly that other people could have noticed. Or the opposite - being so fidgety or restless that you have been moving around a lot more than usual: not at all 9. Thoughts that you would be better off or of hurting yourself in some way: not at all Total score: 0 Depression Screening Interpretation: Negative Depression Screening Done: Yes 32297 - PHQ-9 Billing: Yes Source: Developed by Drs. Isauro Emanuel, Danika Bey, Corky Peterson and colleagues, with an educational jose from [employer]. Thrive Questionnaire Date Thrive assessed: 12/28/23 I am a: Patient What is your living situation today?: I have a steady place to live Within the past 12 months, did the food you bought not last and you didn't have the money to get more?: Never true Within the past 12 months, did you worry whether your food would run out before you got money to buy more?: Never true Do you have trouble paying for medicines?: No Do you have trouble getting transportation to medical appointments?: No Do you have trouble paying your heating and electricity bill?: No Do you have trouble taking care of your child, family member or friend?: No Do you have trouble with day-to-day activities such as bathing, preparing meals, shopping, managing finances, etc.?: No Are you currently unemployed and looking for a job?: No Are you interested in more education?: No Please select the resources that you would like help with: Housing/Custodial Currently or been in a relationship where the following occur: No concerns reported THRIVE Score: 0 AUDIT C Alcohol Use Questionnaire (AUDIT-C) 1. How often do you have a drink containing alcohol?: Never 3. How often do you have six or more drinks on one occasion?: Never Total Score: 0 Score Reviewed/Action Taken: Yes ENRIQUE-7 AMB Questionnaire ENRIQUE-7 Date ENRIQUE - 7 assessed: 01/04/24 Feeling nervous, anxious, or on edge: 0 = Not at all Not being able to stop or control worryin = Not at all Worrying too much about different things: 0 = Not at all Trouble relaxin = Not at all Being so restless that it is hard to sit still: 0 = Not at all Becoming easily annoyed or irritable: 0 = Not at all Feeling afraid as if something awful might happen: 0 = Not at all Total ENRIQUE-7 score (0-4 normal; 5-9 mild; 10-14 moderate; 15-21 severe): 0 Source: Developed by Drs. Isauro Emanuel, Danika Bey, Corky Peterson and colleagues, with an educational jose from [employer]. ENRIQUE-7 Assessment Billing ENRIQUE-7 Assessment Tool: ENRIQUE-7 Assessment 55070 Review of Systems Const All systems reviewed & are unremarkable except as noted in HPI and below Physical exam (Primary Care) Vital Signs: Last Vital Signs Pulse 72 01/04/24 11:43 BP 104/70 01/04/24 11:43 Pulse Ox 98 01/04/24 11:43 BMI result Body Mass Index 26.9 Tobacco/Smoking Status: Tobacco use Status Tobacco use date assessed 09/16/23 01/04/24 11:47 Patient Tobacco Use Status Never used Tobacco 01/04/24 11:47 e-Cigarette/Vaping Use Never Used 01/04/24 11:47 PHQ-9: PHQ-9 Score PHQ-9: Total score 0 01/04/24 12:06 Depression Screening Interpretation: Negative Thrive Assessment: Date of Thrive Assessment Date Thrive assessed 12/28/23 01/04/24 11:47 Currently or been in a relationship where the following occur: No concerns reported Const Other: Alert oriented x3, no acute distress noted, ambulatory normal gait Nutritional Appearance: average body habitus Orientation/consciousness: patient oriented x3 HENMT Face and sinus: Yes face symmetric Mouth: Normal oral and palatal mucosa present, oropharynx normal and moist mucous membranes Neck Neck: Yes no lymphadenopathy and Yes supple Thyroid: Thyroid normal Resp Effort & Inspection: normal respiratory effort and able to speak in complete sentences Auscultation: clear to auscultation bilaterally Cardio Other: S1-S2 present regular rate and rhythm GI Other: Hyperactive bowel sounds,, soft, nontender, no mass palpated General: Yes deferred (Currently sees [facility] for her routine Pap and pelvic exam, was recently ) Skin Other: Multiple tattoos on arms, and under right breast Neuro General: patient oriented x3, tone normal, moves all extremities, no focal motor deficits and CN's II-XI intact bilaterally Extrem General: Yes full ROM, Yes no clubbing, cyanosis or edema, Yes no calf tenderness and Yes normal gait Assessment and Plan Assessment & Plan (1) Irritable bowel syndrome with constipation: Code(s): K58.1 - Irritable bowel syndrome with constipation Plan: Prescription sent for dicyclomine 10 mg per capsule to take 1 capsule 3 times a day with meals, placed on a FODMAP diet, follow-up in a month if no improvement of symptoms Medications: New dicyclomine 10 mg PO TID 90 caps 0RF K58.1 - Irritable bowel syndrome with constipation Coding Level of Care Code Est Pt Level 4 (89608) Diagnoses Irritable bowel syndrome with constipation K58.1 Additional Codes ENRIQUE-7 Assessment Billing - ENRIQUE-7 Assessment Tool: ENRQIUE-7 Assessment 14479 ([id number])
== END 2024-01-04 12:19 | disposition home or self-care (01) ==
PROVIDERS: PCP Internal Medicine; Visit Provider Internal Medicine
DX: K58.1 Irritable bowel syndrome with constipation (principal)
CPT/HCPCS: 99214

== ENCOUNTER 2024-02-01 15:17 | Outpatient (AMB) | payer OTHER, SELFPAY ==
--- NOTE | 2024-02-01 15:25 | A.OFFVIS_ITS ---
Vital Signs 02/01/24 15:27 BP 120/80 Intake Visit Reasons: recurring vag inf Intake Note: pt c/o vaginal discomfort, itching, greenish discharge, cramps Inspector Receiving: Inspector Receiving Present (Leslie) Allergies No Known Allergies Allergy (Verified 02/01/24 15:26) HPI Comments Details: Patient is here today with concerns over vaginal discharge irritation and pelvic pain. She denies any dysuria. She wants to have her IUD removed as she feels it does contribute to her frequent vaginal irritations. She is taking probiotics and using boric acid. Last infection August of 2023 was positive for yeast and BV. Currently on a SAMIR inhibitor and is contraindicated with . Partner is planning a vasectomy in March, she is aware that he will need several negative sperm counts before it is finalized. [facility] Medical History (Updated 01/04/24 @ 12:11 by Emerald Britt MD) Irritable bowel syndrome with constipation History of alopecia Breast pain, right Right ovarian cyst Acne vulgaris Mild intermittent asthma Fibroadenoma of right breast (Unknown) Surgical History Hx of wisdom tooth extraction Family History Paternal Grandfather Colon cancer Maternal Grandmother Mesothelioma Maternal Uncle Substance use disorder Mental health disorder Alcoholism Brother Substance use disorder Alcoholism Maternal Grandmother Substance use disorder Mental health disorder Maternal Grandfather Substance use disorder Maternal Aunt Mental health disorder Breast cancer Social History Housing: Condominium Alcohol intake: never Patient Tobacco Use Status: Never used Tobacco e-Cigarette/Vaping Use: Never Used service: No Current occupational status: employed 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 Sexual orientation: Straight/Heterosexual Gender identity: Female Cognitive needs: No Hearing needs: No Vision needs: No Female Reproductive History Menstrual Age of Menarche: 13 Review of Systems Const All systems reviewed & are unremarkable except as noted in HPI and below Physical Exam Vital Signs: Last Vital Signs BP 120/80 02/01/24 15:27 Const General: cooperative, healthy appearing and no acute distress Orientation/consciousness: patient oriented x3 GI Inspection: Yes normal to inspection Palpation (GI): Soft to palpation and Other GI palpation findings present (Nontender) Rectal Exam - Female: visual inspection normal General: Yes bladder normal to palpation External Female Exam: normal appearance of the urethra Speculum Exam - Vagina: normal appearance of the vagina, normal palpation and normal vaginal discharge (White, creamy) Speculum Exam - Cervix: normal appearance of the cervix, normal palpation and Other cervical findings present (IUD strings present at the os) Bimanual exam- vagina & uterus: normal bimanual exam, normal palpation, uterine size normal, bladder normal to palpation, normal palpation, uterine shape normal and non-tender Bimanual Exam- Adnexa, other: normal adnexae Neuro General: patient oriented x3 Results AMB Urinalysis, Automated UA Leukoctes 0 Nabil/uL Last Edit by Rebeca Yanez [place] on 02/01/24 15:48 UA Nitrite Negative Last Edit by Rebeca Yanez [facility] on 02/01/24 15:48 UA Urobilinogen 0 mg/dL Last Edit by Rebeca Yanez [facility] on 02/01/24 15:4 8 UA Protein 0 mg/dL Last Edit by Rebeca Yanez [facility] on 02/01/24 15:48 UA pH 7.0 Last Edit by Rebeca Yanez [facility] on 02/01/24 15:48 UA Blood 0 [place]/uL Last Edit by Rebeca Yanez [facility] on 02/01/24 15:48 UA Specific [place] 1.010 Last Edit by Rebeca Yanez [facility] on 02/01/24 15:48 UA Ketone Negative Last Edit by Rebeca Yanez [facility] on 02/01/24 15:48 UA Bilirubin 0 mg/dL Last Edit by Rebeca Yanez [facility] on 02/01/24 15:48 UA Glucose 0 mg/dL Last Edit by Rebeca Yanez [facility] on 02/01/24 15:48 AMB Test Urine AMB Test Urine Negative Last Edit by Rebeca Yanez [facility] on 02/01/24 15:48 Assessment & Plan Assessment & Plan (1) Pelvic pain: Code(s): R10.2 - Pelvic and perineal pain (2) Vaginal discharge: Code(s): N89.8 - Other specified noninflammatory disorders of vagina Plan Discussed: Plan workup for pelvic pain with ultrasound, GC chlamydia BV panel, urinalysis, test. Plan follow up in person for test results and IUD removal same day visit. If significant pain in the pelvic area to report to the emergency room for immediate evaluation. Continue with probiotics and boric acid for now. Anticipatory guidance for IUD removal reviewed, may takes Tylenol ahead of time p.r.n.. All of her questions and concerns were addressed to the best of my ability and shared decision making. She is agreeable to the plan of care. This note is constructed using voice recognition software. While every effort has been made to ensure accuracy, field traffic investigator errors may have been included. Orders: Orders Bacterial Vaginosis Panel Today N89.8 - Other specified noninflammatory disorders of vagina, R10.2 - Pelvic and perineal pain AMB Urinalysis Automated Today R10.2 - Pelvic and perineal pain CT NG by PCR Today N89.8 - Other specified noninflammatory disorders of vagina, R10.2 - Pelvic and perineal pain AMB HCG Urine Test Today R10.2 - Pelvic and perineal pain Coding Level of Care Code Est Pt Level 3 (07550) Diagnoses Pelvic pain R10.2 Vaginal discharge N89.8
[2024-02-01 15:27] VITALS: BP 120/80
== END 2024-02-01 15:58 | disposition home or self-care (01) ==
LOC: HO.HWS 15:17
PROVIDERS: PCP Internal Medicine; Visit Provider Advanced Practice Midwife
DX: R10.2 Pelvic and perineal pain (principal); N89.8 Other specified noninflammatory disorders of vagina
CPT/HCPCS: 99213

== ENCOUNTER 2024-02-01 15:17 | Outpatient (REF) | payer OTHER, SELFPAY | END 2024-02-01 15:18 | disposition home or self-care (01) | LOC: HO.LAB 15:17 | PROVIDERS: PCP Internal Medicine; Visit Provider Advanced Practice Midwife | DX: R10.2 Pelvic and perineal pain (principal) | CPT/HCPCS: 81003; 81025 ==

== ENCOUNTER 2024-02-01 15:41 | Outpatient (REF) | payer OTHER, SELFPAY ==
[2024-02-01 17:37] LABS: Bacterial Vaginosis PCR NEGATIVE (Negative); Candida Group PCR NOT DETECTED (Not Detect); Candida glab krusei PCR DETECTED (Not Detect); Trichomonas vaginalis PCR NOT DETECTED (Not Detect)
[2024-02-01 18:01] LABS: CT PCR NOT DETECTED (Not Detect.); NG PCR NOT DETECTED (Not Detect.)
== END 2024-02-01 15:42 | disposition home or self-care (01) ==
LOC: HO.LNP 15:41
PROVIDERS: Visit Provider Advanced Practice Midwife
DX: R10.2 Pelvic and perineal pain (principal); N89.8 Other specified noninflammatory disorders of vagina
CPT/HCPCS: 0352U; 87491; 87591

== ENCOUNTER 2024-02-07 12:43 | Outpatient (REF) | payer OTHER, SELFPAY ==
--- NOTE | ~2024-02-07 | US_ITS ---
EXAMINATION: US PELVIS CLINICAL INFORMATION: Pelvic pain, IUD, denies pain. COMPARISON: 12/20/2022, TECHNIQUE: Ultrasound of the pelvis is performed using both transabdominal and transvaginal transducers along with Doppler. Transvaginal imaging is performed due to inadequate visualization transabdominally. FINDINGS: The uterus is anteverted and measures 6.6 x 3.2 x 4.[address] within the endometrial cavity. Small amount of free fluid in the cul-de-sac. Right ovary measures 3.6 x 1.9 x 1.7 cm, volume 6.1 mL. 1.0 cm exophytic right ovarian cyst appears simple, likely physiologic. Left ovary measures 4.8 x 2.8 x 4.0 cm, volume 27.5 mL. 1.3 cm exophytic left cyst appears simple, likely physiologic. 1.5 x 1.5 x 1.2 cm complex left ovarian hypoechoic lesion likely represents a complex cyst such as a corpus luteum, although a solid mass could also be considered. US/US pelvic and transvaginal IMPRESSION: 1. IUD in place within the endometrial cavity. 2. A 1.5 cm complex left ovarian hypoechoic lesion appears more solid when compared with 1.9 cm complex cystic lesion seen on pelvic ultrasound of 12/20/2022. While this may represent a complex cyst such as a corpus luteum, a solid mass could also be considered. Recommend followup ultrasound in 6-8 weeks. Electronically signed by: Nancy Nixon MD 02/15/2024 10:31 AM EDT
== END 2024-02-07 12:44 | disposition home or self-care (01) ==
LOC: HO.HMGCX 12:43
PROVIDERS: PCP Internal Medicine; Visit Provider Advanced Practice Midwife
DX: R10.2 Pelvic and perineal pain (principal)
CPT/HCPCS: 76830; 76856

== ENCOUNTER 2024-03-02 08:13 | Outpatient (AMB) | payer OTHER, SELFPAY ==
--- OUTSIDE RECORDS SUMMARY | 2024-03-02 08:14 | XMS_ITS | Continuity of Care Document ---
Author Organization [facility] Address [address] [place] [address] [place] [address]- Care Team Providers Care Handbag Parts Cutter Name Role Phone Joy Glasgow MD Primary Care Physician Encounter [facility] Date(s): 01/09/24 - 02/08/[address] [address]- Attending Physician: Matty Dumont Admitting Physician: Matty Dumont Referring Physician: AdmtrMatty Allergies, Adverse Reactions, Alerts No Known Allergies Medications Omeprazole By Mouth, Daily, 0 Refills, Maintenance, 10/05/13 9:39:01 Start Date: 10/05/13 Status: Ordered Problem List Condition Confirmation Course Effective Dates Status Health St atus Informant Syncope, vasovagal Confirmed Active Patient Care team information Care Team Personnel Name: Joy Glasgow MD Position: S Physician - Pediatrics Member Role: PCP Address: Address: [address] [place] [address] [place] [address]- Care Team Related Persons Name: FREDY ONEIL Address: home [address] [place] [address]
[2024-03-02 08:44] VITALS: BP 114/80; PULSE 78; TEMP 36.8; O2SAT 97; BMI 27.4
--- NOTE | 2024-03-02 08:44 | AM.OFFWIN_ITS ---
Intake Vital Signs 03/02/24 08:44 Height 5 ft 7 in Weight 175 lb BMI 27.4 BP 114/80 Blood Pressure Location Rt brachial Position Sitting Pulse 78 Pulse Source Pulse Oximeter Temp 98.3 F Temp Source Oral Pulse Oximetry (%) 97 Oxygen Delivery Method Room Air Intake Visit Reasons: EP Sore throat, nausea, congestion. Intake Note: pt c/o sore throat,nausea, congestion, chills, diarrhea. Started last night Patient Tobacco Use Status: Never used Tobacco Allergies No Known Allergies Allergy (Verified 03/02/24 08:47) Do you need a note to return to daycare/school/sports/work: Yes HPI HPI Comments History of Present Illness Details Patient is a 29-year-old female complaining of 1 day of a sore throat she states it feels like there is a tickle in her throat, some nausea, some head congestion, chills and a little bit of diarrhea. She denies any cough, fevers or shortness of breath. She does state she has seasonal allergies and this is usually the time of the year with things will act up for her. She states she is eating and this morning has having vitamin water and had a half of a bagel with butter. She states she has not taken any [id number] medications to treat her symptoms because she is in a study for a new medication, a SAMIR inhibitor, to treat alopecia so she is not supposed to take any medications that are not approved by this study doctors. [facility] Medical History (Updated 02/29/24 @ 09:02 by Mervat Reyes CNM) Irritable bowel syndrome with constipation History of alopecia Breast pain, right Right ovarian cyst Acne vulgaris Mild intermittent asthma Fibroadenoma of right breast (Unknown) Surgical History Hx of wisdom tooth extraction Family History Paternal Grandfather Colon cancer Maternal Grandmother Mesothelioma Maternal Uncle Substance use disorder Mental health disorder Alcoholism Brother Substance use disorder Alcoholism Maternal Grandmother Substance use disorder Mental health disorder Maternal Grandfather Substance use disorder Maternal Aunt Mental health disorder Breast cancer Social History Housing: Condominium Alcohol intake: never Patient Tobacco Use Status: Never used Tobacco e-Cigarette/Vaping Use: Never Used service: No Current occupational status: employed 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 Sexual orientation: Straight/Heterosexual Gender identity: Female Cognitive needs: No Hearing needs: No Vision needs: No Female Reproductive History Menstrual Age of Menarche: 13 Review of Systems Const All systems reviewed & are unremarkable except as noted in HPI and below Physical Exam Vital Signs: Last Vital Signs Temp 98.3 F 03/02/24 08:44 Pulse 78 03/02/24 08:44 BP 114/80 03/02/24 08:44 Pulse Ox 97 03/02/24 08:44 Oxygen Delivery Method Room Air 03/02/24 08:44 BMI result Body Mass Index 27.4 Const General: cooperative, healthy appearing, comfortable and no acute distress Orientation/consciousness: patient oriented x3 Limitations: no limitations HEENT Head: Yes normal to inspection Ears: hearing grossly normal bilaterally, external ears normal and TM's normal bilaterally General nose exam: Normal external nose present, Normal nares present and No nasal discharge present Face and sinus: Yes normal facial exam and Yes sinuses nontender Mouth: Normal oral and palatal mucosa present and moist mucous membranes Throat: Yes tonsils normal, Yes uvula midline and Yes posterior oropharynx abnormal (Erythema) Eyes General: appearance normal, both eyes and all related structures Neck Neck: Yes normal visual inspection Resp Effort & Inspection: normal respiratory effort, able to speak in complete sentences, Actively coughing, no respiratory distress, not tachypneic, no tripod positioning and no use of accessory muscles Auscultation: clear to auscultation bilaterally Cardio Rate: regular rate Rhythm: regular rhythm Heart sounds: normal S1 and S2 Skin General skin exam: no rashes or lesions noted Neuro General: patient oriented x3 Extrem General: Yes normal to inspection and Yes no clubbing, cyanosis or edema Results AMB Rapid Strep AMB Rapid Strep Negative Last Edit by Marty Bermeo CMA on 03/02/24 08:58 Assessment & Plan Assessment & Plan (1) Upper respiratory tract infection: Code(s): J06.9 - Acute upper respiratory infection, unspecified Plan: Rapid strep is negative in office, vital signs are stable and patient is well- appearing, this is most likely a virus, recommended she is rest, stay well hydrated, we did send flu COVID and RSV. She should check with the doctors who are running her study to see what [id number] medication she can use to treat her symptoms. Plan See above Orders: Orders SARS-CoV2/FLU/RSV Today J06.9 - Acute upper respiratory infection, unspecified AMB Rapid Strep Screen Today Z13.9 - Encounter for screening, unspecified Coding Level of Care Code Est Pt Level 3 (74615) Diagnoses Upper respiratory tract infection J06.9
== END 2024-03-02 09:10 | disposition home or self-care (01) ==
PROVIDERS: PCP Internal Medicine; Visit Provider Physician Assistant
DX: J06.9 Acute upper respiratory infection, unspecified (principal); Z13.9 Encounter for screening, unspecified

== ENCOUNTER 2024-03-02 08:13 | Outpatient (REF) | payer OTHER, SELFPAY ==
[2024-03-02 11:01] LABS: Influenza A PCR NEGATIVE (Negative); Influenza B PCR NEGATIVE (Negative); Resp Syncy Virus RNA Qual PCR NEGATIVE (Negative); SARS COV2 PCR INHOUSE NEGATIVE (Negative)
== END 2024-03-02 08:14 | disposition home or self-care (01) ==
LOC: HO.LAB 08:13
PROVIDERS: PCP Internal Medicine; Visit Provider Physician Assistant
DX: J06.9 Acute upper respiratory infection, unspecified (principal)
CPT/HCPCS: 0241U; 87880

== ENCOUNTER 2024-03-13 11:04 | Outpatient (REF) | payer OTHER, SELFPAY ==
[2024-03-14 09:40] LABS: Bacterial Vaginosis PCR NEGATIVE (Negative); Candida Group PCR NOT DETECTED (Not Detect); Candida glab krusei PCR DETECTED (Not Detect); Trichomonas vaginalis PCR NOT DETECTED (Not Detect)
== END 2024-03-13 11:05 | disposition home or self-care (01) ==
LOC: HO.LAB 11:04
PROVIDERS: PCP Internal Medicine; Visit Provider Advanced Practice Midwife
DX: Z30.432 Encounter for removal of intrauterine contraceptive device (principal); N89.8 Other specified noninflammatory disorders of vagina; N90.89 Other specified noninflammatory disorders of vulva and perineum; Z32.02 Encounter for pregnancy test, result negative
CPT/HCPCS: 0352U; 58301; 81025

== ENCOUNTER 2024-03-13 11:04 | Outpatient (AMB) | payer OTHER, SELFPAY ==
--- NOTE | 2024-03-13 11:31 | A.OFFVIS_ITS ---
Vital Signs 03/13/24 11:32 Height 5 ft 7 in BP 116/80 Intake Visit Reasons: IUD removal Intake Note: ? yeast inf, vag itching and odor Computer Repair Instructor: Computer Repair Instructor Present (Leslie) Allergies No Known Allergies Allergy (Verified 03/13/24 11:32) HPI Comments Details: Patient is here today for an IUD removal she admits to having some external itching in unsure if it is a yeast or BV infection. Her partner is having a vasectomy today. COUNTS INCLUDE 234 BEDS AT THE [facility] Medical History (Updated 02/29/24 @ 09:02 by Mervat Reyes CNM) Irritable bowel syndrome with constipation History of alopecia Breast pain, right Right ovarian cyst Acne vulgaris Mild intermittent asthma Fibroadenoma of right breast (Unknown) Surgical History Hx of wisdom tooth extraction Family History Paternal Grandfather Colon cancer Maternal Grandmother Mesothelioma Maternal Uncle Substance use disorder Mental health disorder Alcoholism Brother Substance use disorder Alcoholism Maternal Grandmother Substance use disorder Mental health disorder Maternal Grandfather Substance use disorder Maternal Aunt Mental health disorder Breast cancer Social History Housing: Condominium Alcohol intake: never Patient Tobacco Use Status: Never used Tobacco e-Cigarette/Vaping Use: Never Used service: No Current occupational status: employed 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 Sexual orientation: Straight/Heterosexual Gender identity: Female Cognitive needs: No Hearing needs: No Vision needs: No Female Reproductive History Menstrual Age of Menarche: 13 Review of Systems Const All systems reviewed & are unremarkable except as noted in HPI and below Physical Exam Vital Signs: Last Vital Signs BP 116/80 03/13/24 11:32 Const General: cooperative, healthy appearing and no acute distress Orientation/consciousness: patient oriented x3 GI Inspection: Yes normal to inspection Palpation (GI): Soft to palpation and Other GI palpation findings present (Nontender) Rectal Exam - Female: visual inspection normal General: Yes bladder normal to palpation External Female Exam: normal appearance of the urethra Speculum Exam - Vagina: normal appearance of the vagina, normal palpation and normal vaginal discharge (White and creamy) Speculum Exam - Cervix: normal appearance of the cervix, normal palpation and Other cervical findings present (IUD strings in the endocervical canal, teased out with a Cyto brush) Bimanual exam- vagina & uterus: normal bimanual exam, normal palpation, uterine size normal, bladder normal to palpation, normal palpation, uterine shape normal and non-tender Bimanual Exam- Adnexa, other: normal adnexae Neuro General: patient oriented x3 Office Procedures Contraception Insert/Removal Details Details: The patient presents today for a IUD removal. She is planning partner to have a vasectomy and wants the IUD out sooner due to her frequent vaginal infections and other symptoms. She was counseled regarding the removal of her IUD. She was consented for the procedure along with anticipatory guidance for the removal and the consents form was signed. She desires to proceed with the IUD removal. IUD Removal Procedure: The patient was placed in the dorsal lithotomy position. A speculum was inserted vaginally and the cervix and strings were visualized at the os. A ring forcep was utilized, and the patient was asked to give a deep cough while the strings were grasped and gently tugged at the same time, removing the IUD device intact. Minimal bleeding was observed. All of the equipment was removed. The patient tolerated the procedure well and left the office in good condition. IUD Removal Information: You may have light bleeding for several days, tapering off to a brown or pink color. Mild cramping after removal is common. If not allergic, you may take an over the counter mild analgesic for the discomfort, such as Tylenol or Advil (use dosing and frequency per the manufacturers recommendations). Call the office if you experience: fever (over 100.4), flu like symptoms, abdominal or pelvic pain, foul smelling discharge or heavy bleeding. If not planning for a future , another form of control is recommended. Use of condoms for prevention of until vasectomy clearance. This note is constructed using voice recognition software. While every effort has been made to ensure accuracy, nut sheller errors may have been included. 10309 - Removal Results AMB Test Urine AMB Test Urine Negative Last Edit by MANA Hand on 03/13/24 11:47 Results Reviewed Results Reviewed: Laboratory Last Values [facility] Clinic Negative 03/13/24 11:45 Assessment & Plan Assessment & Plan (1) Encounter for IUD removal: Code(s): Z30.432 - Encounter for removal of intrauterine contraceptive device (2) Vulvar irritation: Code(s): N90.89 - Other specified noninflammatory disorders of vulva and perineum Plan Successful IUD removal. BV panel obtained await results for plan of care. Advised vasectomy is not completely 100% and she will need a backup method until he has received clearance that he is no longer fertile. Follow up ultrasound in several weeks All of her questions and concerns were addressed to the best of my ability and shared decision making. She is agreeable to the plan of care. This note is constructed using voice recognition software. While every effort has been made to ensure accuracy, nut sheller errors may have been included. Orders: Orders AMB HCG Urine Test Today Z32.02 - Encounter for test, result negative Bacterial Vaginosis Panel Today N89.8 - Other specified noninflammatory disorders of vagina Coding Level of Care Code Procedure Only Diagnoses Encounter for IUD removal Z30.432 Vulvar irritation N90.89 CPT Codes Details - Contraception: 53616 - Removal ([id number])
[2024-03-13 11:32] VITALS: BP 116/80
== END 2024-03-13 13:07 | disposition home or self-care (01) ==
PROVIDERS: PCP Internal Medicine; Visit Provider Advanced Practice Midwife
DX: N90.89 Other specified noninflammatory disorders of vulva and perineum (principal); Z30.432 Encounter for removal of intrauterine contraceptive device; Z32.02 Encounter for pregnancy test, result negative
CPT/HCPCS: 58301; 99213

== ENCOUNTER 2024-03-28 12:49 | Outpatient (REF) | payer OTHER, SELFPAY ==
--- NOTE | ~2024-03-28 | US_ITS ---
EXAMINATION: US PELVIS CLINICAL INFORMATION: Left ovarian cyst. COMPARISON: Pelvic ultrasound 02/07/2024. TECHNIQUE: Ultrasound of the pelvis is performed using both transabdominal and transvaginal transducers along with Doppler. Transvaginal imaging is performed due to inadequate visualization transabdominally. FINDINGS: Uterus: The uterus is anteverted and measures 7.3 x 3.1 x 4.2 cm The double wall endometrial thickness is 2.3 mm. The uterus is smooth in contour and has normal myometrial echogenicity. No visible fibroid. Trace fluid seen in the cervical canal. Adnexa: Both ovaries are visualized. There is normal color flow to the adnexa. There is no ovarian torsion. There is no pelvic ascites or fluid collection. Right ovary measures 3.2 x 2.0 x 2.6 cm for a volume of 8.6 mL and includes a benign simple 1.1 cm cyst. Left ovary measures 3.4 x 2.2 x 3.0 cm for a volume of 11.8 mL and includes some benign simple cysts the largest measuring 1.3 and 1.2 cm. Previously seen complex 1.5 cm solid appearing cyst/mass not appreciated on the current exam. US/US pelvic and transvaginal IMPRESSION: 1. Previously seen complex cyst/mass in the left ovary is not appreciated on the current exam. 2. Benign simple cysts are seen in both ovaries. No follow-up is needed. Electronically signed by: Robin Hernandez MD 05/25/2024 12:48 AM [facility]
== END 2024-03-28 12:50 | disposition home or self-care (01) ==
LOC: HO.HMGCX 12:49
PROVIDERS: PCP Internal Medicine; Visit Provider Advanced Practice Midwife
DX: N83.292 Other ovarian cyst, left side (principal)
CPT/HCPCS: 76830; 76856

== ENCOUNTER 2024-05-25 08:39 | Outpatient (AMB) | payer OTHER, SELFPAY ==
--- NOTE | 2024-05-25 08:40 | A.OFFVIS_ITS ---
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 Doing well with concerns: External itching and irritation. Regular monthly menses, has her cycle today. Currently is sexually active. STI screening offered; she declines. Partner has a vasectomy is waiting for his 2nd sperm count to be cleared, currently using a backup method. She tries to eat healthy and stays active with exercise. Denies family history of breast, ovarian or colon cancer. Last pap smear 2020, negative. [facility] Medical History Irritable bowel syndrome with constipation History of alopecia Breast pain, right Right ovarian cyst Acne vulgaris Mild intermittent asthma Fibroadenoma of right breast (Unknown) Surgical History Hx of wisdom tooth extraction Family History Paternal Grandfather Colon cancer Maternal Grandmother Mesothelioma Maternal Uncle Substance use disorder Mental health disorder Alcoholism Brother Substance use disorder Alcoholism Maternal Grandmother Substance use disorder Mental health disorder Maternal Grandfather Substance use disorder Maternal Aunt Mental health disorder Breast cancer Social History Housing: Condominium Alcohol intake: never Patient Tobacco Use Status: Never used Tobacco e-Cigarette/Vaping Use: Never Used service: No Current occupational status: employed 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 Sexual orientation: Straight/Heterosexual Gender identity: Female Cognitive needs: No Hearing needs: No Vision needs: No Female Reproductive History Menstrual Age of Menarche: 13 Review of Systems Const All systems reviewed & are unremarkable except as noted in HPI and below Reports as per HPI Eyes Reports no additional complaints ENT Reports no additional complaints Card Reports no additional complaints Resp Reports no additional complaints GI Reports as per HPI and Reports no additional complaints Reports as per HPI Musc Reports no additional complaints Skin/Breast Reports as per HPI Neuro Reports no additional complaints Psych Reports no additional complaints Endo Reports no additional complaints Dl/Lymph Reports no additional complaints Aller/Immun Reports no additional complaints Physical Exam Const General: cooperative, healthy appearing, no acute distress, well developed and alert Orientation/consciousness: patient oriented x3 HEENT Head: Yes normal to inspection Eyes General: appearance normal, both eyes and all related structures Neck Neck: Yes normal visual inspection Thyroid: Thyroid normal Chest Chest palpation & inspection: normal inspection of the chest and other (no puckering, dimpling, peau de orange, retraction, discharge, masses) Breast/axilla inspection: normal inspection of the breasts Breast/axilla palpation: normal palpation of the breasts Resp Effort & Inspection: normal respiratory effort GI Inspection: Yes normal to inspection Palpation (GI): Soft to palpation Rectal Exam - Female: deferred General: Yes bladder normal to palpation External Female Exam: normal external appearance and normal appearance of the urethra Speculum Exam - Vagina: normal appearance of the vagina, normal palpation, normal vaginal discharge and vaginal bleeding Speculum Exam - Cervix: normal appearance of the cervix and normal palpation Bimanual exam- vagina & uterus: normal bimanual exam, normal palpation, uterine size normal, bladder normal to palpation, normal palpation and non-tender Bimanual Exam- Adnexa, other: no masses OB/external & speculum: vaginal bleeding Skin General skin exam: no rashes or lesions noted Rashes: no rashes Neuro General: patient oriented x3 Cognition (Neuro): normal cognition Extrem General: Yes normal to inspection Psych Attitude: cooperative Thought process: Normal thought process present Results Reviewed Results Reviewed: [facility] [address] [place] [address] [place] [address] Ultrasound Report Signed Patient: Omayra Wylie MR#: [id number] : 1995 Acct:[id number] Age/Sex: 29 / F ADM Date: 03/28/24 Loc: HO.HMGCX Attending Dr: Mervat Reyes CNM Ordering Physician: Mervat Reyes CNM Date of Service: 03/28/24 Procedure(s): US pelvic and transvaginal Accession Number(s): [id number] cc: Emerald Britt MD; Mervat Reyes CNM~ EXAMINATION: US PELVIS CLINICAL INFORMATION: Left ovarian cyst. COMPARISON: Pelvic ultrasound 02/07/2024. TECHNIQUE: Ultrasound of the pelvis is performed using both transabdominal and transvaginal transducers along with Doppler. Transvaginal imaging is performed due to inadequate visualization transabdominally. FINDINGS: Uterus: The uterus is anteverted and measures 7.3 x 3.1 x 4.2 cm The double wall endometrial thickness is 2.3 mm. The uterus is smooth in contour and has normal myometrial echogenicity. No visible fibroid. Trace fluid seen in the cervical canal. Adnexa: Both ovaries are visualized. There is normal color flow to the adnexa. There is no ovarian torsion. There is no pelvic ascites or fluid collection. Right ovary measures 3.2 x 2.0 x 2.6 cm for a volume of 8.6 mL and includes a benign simple 1.1 cm cyst. Left ovary measures 3.4 x 2.2 x 3.0 cm for a volume of 11.8 mL and includes some benign simple cysts the largest measuring 1.3 and 1.2 cm. Previously seen complex 1.5 cm solid appearing cyst/mass not appreciated on the current exam. IMPRESSION: 1. Previously seen complex cyst/mass in the left ovary is not appreciated on the current exam. 2. Benign simple cysts are seen in both ovaries. No follow-up is needed. Electronically signed by: Robin Hernandez MD 05/25/2024 12:48 AM [facility] Dictated By: Robin Hernandez MD Signed By: <Electronically signed by Robin Hernandez MD in OV> 05/25/24 0048 DD/ 1256 TD/TT: 03/28/24 1326 Chief Of Party: Assessment & Plan Assessment & Plan (1) Encounter for well woman exam with routine gynecological exam: Code(s): Z01.419 - Encounter for gynecological examination (general) (routine) without abnormal findings Category: Medical (2) Encounter to discuss test results: Code(s): Z71.2 - Person consulting for explanation of examination or test findings Plan Discussed: Ultrasound findings complex ovarian cyst has results solved, small bilateral benign cysts noted no further recommendations for follow up are needed. Current recommendations for pap smears per ASCCP guidelines. Pap smear obtained. BV panel obtained. Breast awareness and periodic breast exams. Maintain a healthy lifestyle including a well balanced diet and routine exercise. Patient verbalizes understanding and agrees to the plan of care. She was given opportunity to ask questions and all questions were answered to the best of my ability. RTO in one year for annual securities underwriter examination. This note is constructed using voice recognition software. While every effort has been made to ensure accuracy, sprinkler driver errors may have been included. Orders: Orders Bacterial Vaginosis Panel Today N89.8 - Other specified noninflammatory disorders of vagina Pap Smear Today Z01.419 - Encounter for gynecological examination (general) (routine) without abnormal findings Coding Level of Care Code Est Pt Prev Care 18-39y([id number]) Diagnoses Encounter for well woman exam with routine gynecological exam Z01.419 Encounter to discuss test results Z71.2
--- NOTE | 2024-05-25 08:40 | MHC.OFFVIS ---
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 Client Customer Manager: Client Customer Manager Present (Amy) Accompanied by: Self / Same As Patient Allergies No Known Allergies Allergy (Verified 05/25/24 08:45) [facility] Medical History (Updated 05/25/24 @ 08:46 by Mervat Reyes CNM) Irritable bowel syndrome with constipation History of alopecia Breast pain, right Right ovarian cyst Acne vulgaris Mild intermittent asthma Fibroadenoma of right breast (Unknown) Surgical History Hx of wisdom tooth extraction Family History Paternal Grandfather Colon cancer Maternal Grandmother Mesothelioma Maternal Uncle Substance use disorder Mental health disorder Alcoholism Brother Substance use disorder Alcoholism Maternal Grandmother Substance use disorder Mental health disorder Maternal Grandfather Substance use disorder Maternal Aunt Mental health disorder Breast cancer Social History Housing: Condominium Alcohol intake: never Patient Tobacco Use Status: Never used Tobacco e-Cigarette/Vaping Use: Never Used service: No Current occupational status: employed 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
--- OUTSIDE RECORDS SUMMARY | 2024-05-25 08:44 | XMS_ITS | Data Portability ---
Author Organization [facility], [address] Address [address] [place] [address] Assessment No assessment recorded. Plan of Treatment Reminders Order Date Submit Date Provider Last Modified By Organization Details Last Modified Time Details Appointments None recorded. Lab SARS CoV 2 (COVID-19) Ag, QL, IA, upper respiratory specimen 2023 024 [email or web address] [address] [place], [address], 10:05:25 Referral None recorded. Procedures None recorded. Surgeries None recorded. Imaging None recorded. Medication Orders None recorded. Patient TargetsNo targets recorded. Patient Instructions Encounter Date Encounter Id Patient Instructions Last Modified By Organization Details Last Modified Time 02/19/2024 [id number] as we discussed most cases of diarrhea are viral in origin and will take care of themselves given time. Make sure you are increasing fluids to replace what you are losing. If you become unable to do that you should go to a hospital. Likewise if you get very sick with fever and severe pain also go get seen. If your symptoms persist beyond one to two weeks return to center and we will look into testing you for parasites and bacteria. [email or web address] Not available 02/19/2024 10:05:25 Reason for Referral None Reported. Results Created Date Observation Date Name Description Value Unit Range Abnormal Flag Note LastModifiedBy Organization Detail LastModifiedTime 02/19/20 24 02/19/2024 SARS CoV 2 (COVI D-19) Ag, QL, IA, upper respi rator y speci men Unknown Analyte negati ve Not Available [address] [place], [address], 02/19/2024 09:24:00 02/19/20 24 02/19/2024 SARS CoV 2 (COVI D-19) Ag, QL, IA, upper respi rator y speci men Unknown Analyte yes Not Available [address] [place], [address], 02/19/2024 09:24:00 Result Notes None recorded. Medical Equipment None Reported. Allergies No known drug allergies Medications Name Sig Start Date Stop Date Status Note LastModified by Organization Details LastModified Time tretinoin 0.025 % topical cream APPLY PEA SIZED AMOUNT TO FACE NIGHTLY 02/18 completed Not Available Not Available Not Available metronidazo le 0.75 % (37.5 mg/5 gram) vaginal gel USE 1 APPFUL VAGINALLY BEDTIME FOR 5 DAYS 02/18 completed Not Available Not Available Not Available terconazole 0.8 % vaginal cream APPPLY ONE APLICATOR FULL VAGINALLY AT BEDTIME FOR 3 DAYS 02/18 completed Not Available Not Available Not Available Miconazole- 7 2 % vaginal cream INSERT 1 APPLICATO RFUL VAGINALLY AT BEDTIME FOR 7 DAYS 02/18 completed Not Available Not Available Not Available amoxicillin 875 mg tablet TAKE 1 TABLET BY MOUTH TWICE A DAY FOR 7 DAYS 02/18 completed Not Available Not Available Not Available ciprofloxac in 0.3 % eye drops PLEASE SEE ATTACHED FOR DETAILED DIRECTION S 02/18 completed Not Available Not Available Not Available albuterol sulfate HFA 90 mcg/actuati on aerosol inhaler INHALE 2 PUFFS EVERY 6 HOURS NEEDED FOR SHORTNESS OF BREATH OR WHEEZING active Not Available Not Available No t Available ondansetron 4 mg disintegrat ing tablet DISSOLVE 1 TAB (4 MG) ORALLY 3 TIMES A DAY NEEDED FOR NAUSEA AND VOMITING FOR 5 DAYS 02/18 completed Not Available Not Available Not Available dicyclomine 10 mg capsule TAKE 1 CAPSULE BY MOUTH 3 TIMES A DAY 02/18 completed Not Available Not Available Not Available clindamycin 1.2 % (1 % base)-benzo yl peroxide 5 % topical gel APPLY THIN LAYER TO FACE ONCE DAILY 02/18 completed Not Available Not Available Not Available Vitals Date Recorded Body height Body mass index (BMI) Body weight Oxygen saturation Oxygen saturation in Arterial blood by Pulse oximetry Heart rate Body temperature Systolic blood pressure Diastolic blood pressure Provider Name and Address Organization Details Last Updated DateTime 4 170.18 cm 26.6 kg/m2 61540.7 g 99 % 99 % 88 /min 98.1 [degF] 115 mm[Hg] 69 mm[Hg] Uyen Peterson PA - [facility] 09:18:39 Social History Question Answer Notes LastModified by [email or web address] ion Details LastModified Time Tobacco Smoking Status Never Smoker Uyen fernandez PA - [facility] 02/19/2024 09:22:44 What Is Your Level Of Alcohol Consumption? None Information not available 02/19/2024 Are You Currently Employed? Yes Information not available 02/19/2024 Which Illicit Or Recreational Drugs Have You Used? MARIJUANA Information not available 02/19/2024 Have You Had A Flu Shot This Season? Yes Information not available 02/19/2024 If No, Would You Like A Flu Shot Today? No Information not available 02/19/2024 What Is Your Relationship Status? Other ENGAGED Information not available 02/19/2024 Are You Passively Exposed To Smoke? No Information not available 02/19/2024 Do You Use Any Illicit Or Recreational Drugs? Yes Information not available 02/19/2024 Have You Recently Traveled Abroad? No Information not available 02/19/2024 Do You Or Have You Ever Used Any Other Forms Of Tobacco Or Nicotine? No Information not available 02/19/2024 Sex: Unknown Functional Status None recorded. Mental Status None recorded. Family History Nothing Reported. Medical History No medical history recorded. Gynecological History Statement/Question Response Is there any chance of ? No LMP N/A Obstetrics History GPAL:G 0 P 0 0 0 0 Past Encounters Encounter ID Performer Location Encounter Start Date Encounter Closed Date Diagnosis/Indication Diagnosis SNOMED-CT Code Diagnosis ICD10 Code [id number] [address] [address] 03/30/2018 14:00:17 03/30/2018 15:22:18 [id number] [address] [facility] [place] Todd [address] 02/01/2020 16:34:44 02/01/2020 18:34:14 [id number] [address] [facility] [place] [address] 11/22/2021 08:36:55 11/22/2021 11:09:01 [id number] [address] [place] [address] [place] Todd [address] 06/01/2018 11:22:31 06/01/2018 11:59:46 [id number] [address] [facility] [place] Todd [address] 12/11/2020 18:03:14 12/11/2020 18:44:16 [id number] [address] [facility] [place] Todd [address] 09/13/2021 08:19:48 09/13/2021 09:25:31 [id number] [facility]EP Marie [address] [place] [address] 02/19/2024 09:11:37 02/19/2024 10:07:08 Viral gastroenteritis [id number] A08.4 Health Concerns Section Related Observation LastModified by Organization Detai ls LastModified Time None Recorded Concern Status LastModified by Organization Details LastModified Time None Recorded Advance Directives Directive None Recorded Payers Encounter Date Sequence Insurance Name Policy Number Policy Kumar Covered Member ID Kumar Member ID Guarantor Name 02/19/2024 1 [facility] [id number] Omayra Wylie [id number] 1 Omayra Wylie Notes Date Note Type Note Provider Name and Address Organization Details Recorded Time 4 text/html COVID-19 SymptomsReported bypatient.COVID-19 Signs and Symptomsheadache same; vomiting or diarrhea same; fatigue same Severity:mild (cramping preceeding diarrhea episodes) Associated Symptoms:no sputum production; no wheezing;diarrhea;ana rosa sea;body aches SUDEEP Meyer [address] [place], [address], PA - [facility] 02/19/2024 10:06:35 OBGyn Episode No OBEpisode recorded.
[2024-05-25 08:47] VITALS: BP 118/68
== END 2024-05-25 09:06 | disposition home or self-care (01) ==
PROVIDERS: PCP Internal Medicine; Visit Provider Advanced Practice Midwife
DX: Z01.419 Encounter for gynecological examination (general) (routine) without abnormal findings (principal); Z71.2 Person consulting for explanation of examination or test findings
CPT/HCPCS: 99395

== ENCOUNTER 2024-05-25 08:39 | Outpatient (REF) | payer OTHER, SELFPAY ==
[2024-05-25 17:34] LABS: Bacterial Vaginosis PCR NEGATIVE (Negative); Candida Group PCR NOT DETECTED (Not Detect); Candida glab krusei PCR DETECTED (Not Detect); Trichomonas vaginalis PCR NOT DETECTED (Not Detect)
== END 2024-05-25 08:40 | disposition home or self-care (01) ==
LOC: HO.LAB 08:39
PROVIDERS: PCP Internal Medicine; Visit Provider Advanced Practice Midwife
DX: N89.8 Other specified noninflammatory disorders of vagina (principal); Z01.419 Encounter for gynecological examination (general) (routine) without abnormal findings
CPT/HCPCS: 0352U

== ENCOUNTER 2024-05-25 09:01 | Outpatient (REF) | payer OTHER, SELFPAY | END 2024-05-25 09:02 | disposition home or self-care (01) | LOC: HO.LNP 09:01 | PROVIDERS: Visit Provider Advanced Practice Midwife | DX: Z01.419 Encounter for gynecological examination (general) (routine) without abnormal findings (principal) | CPT/HCPCS: 88175 ==

== ENCOUNTER 2024-08-06 10:02 | Outpatient (AMB) | payer OTHER, SELFPAY ==
--- OUTSIDE RECORDS SUMMARY | 2024-08-06 11:07 | XMS_ITS | Clinical Summary ---
Author Organization [facility] it Address [address] [place] [address] Care Team Providers Care Fill Manager Name Role Phone Merissa López MD Primary Care Provider [phone] Surgical History Surgery Date Site/Laterality Comments WISDOM TOOTH EXTRACTION PROCEDURE: HISTORICAL WISDOM TEETH EXTRACTION Medical History Medical History Date Comments Asthma DX:Asthma Acid reflux DX:Acid reflux Migraine headache 06/23/2018 DX:Migraine he adache Alopecia 06/23/2018 DX:Alopecia Family History Medical History Relation Name Comments Depression Brother Other: acid reflux Brother Other: acid reflux Father Sleep apnea Father Other cancer Maternal Grandmother Mesothe lioma Asthma Mother Other: acid reflux Mother Colon cancer Other No Known Problems Sister Breast cancer Neg Hx Cervical cancer Neg Hx Ovarian cancer Neg Hx Uterine cancer Neg Hx Relation Name Status Comments Brother Alive Father Alive Maternal Grandfather Maternal Grandmother Mother Alive Other Paternal Grandfather Alive Paternal Grandmother Sister Alive Social History Tobacco Use Types Packs/Day Years Used Date Smoking Tobacco: Never Smokeless Tobacco: Never Alcohol Use Standard Drinks/Week Comments No 0 (1 standard drink = 0.6 oz pur e alcohol) Comments Unknown Sex and Gender Information Value Date Recorded Sex Assigned at Not on file Legal Sex Female 5:18 AM EST Gender Identity Not on file Sexual Orientation Not on file Obstetrics History Plan of Treatment Health Maintenance Due Date Last Done Comments Hepatitis B Vaccines (1 of 3 - 19+ 3-dose series) 01/24/2016 Pneumococcal Vaccine: Pediat rics (0 to 5 Years) and At-Risk Patients (6 to 64 Years) (1 of 2 - PCV) 01/24/2016 Cervical Cancer Screening: P ap Smear 10/02/2021 10/02/2018 Depression Screening 05/16/2022 HIV Screening 05/16/2022 Hepatitis C Screening 05/16/2022 Social Influencers of Health Screening 05/16/2022 COVID-19 Vaccine (1 - 2023-2 5 season) 2024 Influenza Vaccine (#1) 2024 DTaP,Tdap,and Td Vaccines (2 - Td or Tdap) 06/19/2028 06/19/2018 HIB Vaccines Aged Out No longer eligi ble based on patient's age to complete this topic HPV Vaccines Aged Out No longer eligi ble based on patient's age to complete this topic Hepatitis A Vaccines Aged Out No long er eligible based on patient's age to complete this topic IPV Vaccines Aged Out No longer eligi ble based on patient's age to complete this topic MMR Vaccines Aged Out No longer eligi ble based on patient's age to complete this topic Meningococcal ACWY Vaccine Aged Out N o longer eligible based on patient's age to complete this topic Meningococcal B Vacine Aged Out No lo nger eligible based on patient's age to complete this topic RSV Immunization Patients Un quoc 20 months Aged Out No longer eligible b ased on patient's age to complete this topic Varicella Vaccines Aged Out No longer eligible based on patient's age to complete this topic Procedures Procedure Name Priority Date/Time Associated Diagnosis Comments PAP SMEAR Routine 10/02/2018 from Last 3 Months or Most Recently Relevant to Health Maintenance Results * Pap smear (10/02/2018) 10/02/2018 Narrative HISTORICAL TESTING LAB RESULTING AGENCY - 10/04/2018 2:55 PM EDT [id number] THINPREP PAP, IMAGED: NEGATIVE FOR SQUAMOUS INTRAEPITHELIAL LESION AND MALIGNANCY . MIRANDA VIDALES(ASCP) (CASE ELECTRONICALLY SIGNED 10 04 2018) ADEQUACY: SATISFACTORY ENDOCERVICAL/TRANSFORMATION ZONE COMPONENT PRESENT. SOURCE: THINPREP PAP HPV IF ASCUS, CERVICAL, IMAGED CLINICAL INFORMATION: HPV IF DIAGNOSIS OF ASCUS. Z12.4 us Balbir Ellison CNM LAB CYTOLOGY ORDERA BLES Final Result HISTORICAL TESTING LAB RESULTING AGENCY from Last 3 Months or Most Recently Relevant to Health Maintenance Care Teams Fill Manager Relationship Specialty Start Date End Date Merissa López MD PCP - General Internal Medicine 04/02/20
--- OUTSIDE RECORDS SUMMARY | 2024-08-06 11:07 | XMS_ITS | Clinical Summary ---
Author Organization [facility] Address [address] [place] [address] Care Team Providers Care Roller Coaster Engineer Name Role Phone Unavailable Primary Care Provider Unavailabl e Medications * This document contains information received from the source organization and may not represent a complete record from that organization. Hospital, Clinic, or Other Facility Administered Medication Ordered Dose Route Frequency Start Date End Date Status [facility] [id number]-[id number] 12mg, 8mg, 4mg or placebo tablet investigational study drug 1 tablet 1 tablet Oral EVERY 12 HOURS 09/17/2021 Active Social History Tobacco Use Types Packs/Day Years Used Date Smoking Tobacco: Never Assessed Comments Unknown Sex and Gender Information Value Date Recorded Sex Assigned at Not on file Legal Sex Female 5:14 PM EDT Gender Identity Not on file Sexual Orientation Not on file Last Filed Vital Signs Vital Sign Reading Time Taken Comments Blood Pressure 124/75 02/27/2024 11:46 AM EDT Pulse 76 02/27/2024 11:46 AM EDT Temperature - - Respiratory Rate - - Oxygen Saturation - - Inhaled Oxygen Concentration - - Weight - - Height - - Body Mass Index - - Plan of Treatment Health Maintenance Due Date Last Done Comments HIV screening 2010 Hepatitis C screening 2015 Cervical cancer screening 10/02/2021 10/02/2018 Influenza vaccine 01/12/2024 Covid-19 vaccine series ( season) 2024 Tetanus adult (Td q 10,TDAP once) 06/19/2028 019 RSV Discussion (1 - 1-dose 7 5+ series) 01/24/2072 Meningococcal Vaccine Aged Out No sidra chelsey eligible based on patient's age to complete this topic Pneumococcal Vaccine (2 - 49 years) Aged Out No longer eligible b ased on patient's age to complete this topic
--- OUTSIDE RECORDS SUMMARY | 2024-08-06 11:07 | XMS_ITS | Data Portability ---
Author Organization [facility], [address] Address [address] [place] [address] Assessment No assessment recorded. Plan of Treatment Reminders Order Date Submit Date Provider Last Modified By Organization Details Last Modified Time Details Appointments None recorded. Lab SARS CoV 2 (COVID-19) Ag, QL, IA, upper respiratory specimen 2023 024 [email or web address], [address] [place], [address], 10:05:25 Referral None recorded. Procedures None recorded. Surgeries None recorded. Imaging None recorded. Medication Orders None recorded. Patient TargetsNo targets recorded. Patient Instructions Encounter Date Encounter Id Patient Instructions Last Modified By Organization Details Last Modified Time 02/19/2024 [id number] as we discussed most cases of diarrhea [...] ve Not Available [address] [place], [address], 02/19/2024 09:24:00 02/19/20 24 02/19/2024 SARS CoV 2 (COVI D-19) Ag, QL, IA, upper respi rator y speci men Unknown Analyte yes Not Available [address] [place], [address], 02/19/2024 09:24:00 Result Notes None recorded. Medical [...] Updated DateTime 4 170.18 cm 26.6 kg/m2 60636.7 g 99 % 99 % 88 /min 98.1 [degF] 115 mm[Hg] 69 mm[Hg] Uyen Peterson PA - [facility] 09:18:39 Social History Question Answer Notes LastModified by [email or web address] ion Details LastModified Time Tobacco Smoking Status [...] Diagnosis/Indication Diagnosis SNOMED-CT Code Diagnosis ICD10 Code Diagnosis Note [id number] [address] [address] 03/30/2018 14:00:17 03/30/2018 15:22:18 [id number] [address] [facility] [place] [address] 02/01/2020 16:34:44 02/01/2020 18:34:14 [id number] [address] [place] [address] 11/22/2021 08:36:55 11/22/2021 11:09:01 [id number] [address] [place] [address] [place] [address] 06/01/2018 11:22:31 06/01/2018 11:59:46 [id number] [address] [facility] [place] [address] 12/11/2020 18:03:14 12/11/2020 18:44:16 [id number] [address] [facility] [place] [address] 09/13/2021 08:19:48 09/13/2021 09:25:31 [id number] [facility] [address] [address] [place] [address] 02/19/2024 09:11:37 02/19/2024 10:07:08 Viral gastroenteritis [id number] A08.4 Health Concerns Section Related Observation LastModified by Organization Detai ls LastModified Time None Recorded Concern Status LastModified by Organization Details LastModified Time None Recorded Advance Directives Directive None Recorded Payers Encounter Date Sequence Insurance Name Policy Number Policy Kumar Covered Member ID Kumar Member ID Guarantor Name 02/19/2024 1 [facility] [id number] Omayra Wylie [id number] Omayra Wylie Notes Date Note Type Note Provider Name and Address Organization Details Recorded Time 4 text/html COVID-19 SymptomsReported bypatient.COVID-19 Signs and Symptomsheadache same; vomiting or diarrhea same; fatigue same Severity:mild (cramping preceeding diarrhea episodes) Associated Symptoms:no sputum production; no wheezing;diarrhea;ana rosa sea;body aches SUDEEP Meyer [address] [place], [address], PA - [facility] 02/19/2024 10:06:35 OBGyn Episode No OBEpisode recorded.
--- OUTSIDE RECORDS SUMMARY | 2024-08-06 11:07 | XMS_ITS | Clinical Summary ---
Author Organization [facility] Address [address] [place] [address] Care Team Providers Care Tool Storage Attendant Name Role Phone Merissa López MD Primary Care Provider Allergies No known active allergies Medications Medication Sig Dispensed Refills Start Date End Date Status Ethynodiol Diac-Eth Estradiol (KELNOR PO) Take by mouth. 0 Active Multiple Vitamin (MULTI-VITAMIN DAILY PO) Take by mouth. 0 Active ferrous sulfate 325 (65 FE) MG tablet Take 325 mg by mouth every morning with breakfast. 0 Active omeprazole (PriLOSEC) 20 MG capsule Take 20 mg by mouth daily. 0 Active Active Problems No known active problems Family History Medical History Relation Name Comments No Sig Med Hx Mother Cancer Paternal Grandfather colon Relation Name Status Comments Brother Alive Father Alive Mother Alive Paternal Grandfather Alive Sister Alive Social History Tobacco Use Types Packs/Day Years Used Date Smoking Tobacco: Never Smokeless Tobacco: Never Alcohol Use Standard Drinks/Week Comments No 0 (1 standard drink = 0.6 oz pur e alcohol) Sex and Gender Information Value Date Recorded Sex Assigned at Not on file Gender Identity Not on file Sexual Orientation Not on file Last Filed Vital Signs Vital Sign Reading Time Taken Comments Blood Pressure 136/84 04/10/2020 1:08 PM EDT Pulse 105 04/10/2020 1:08 PM EDT Temperature 37.5 ??C (99.5 ??F) 04/10/2020 1:08 PM ED T Respiratory Rate - - Oxygen Saturation - - Inhaled Oxygen Concentration - - Weight 71.8 kg (158 lb 6.4 oz) 04/10/2020 1:08 P M EDT Height 170.2 cm (5' 7 ) 04/10/2020 1:08 PM EDT Body Mass Index 24.81 04/10/2020 1:08 PM EDT Plan of Treatment Health Maintenance Due Date Last Done Comments Hepatitis B Vaccines (1 of 3 - 3-dose series) 1997 Hepatitis C Screening 1997 COVID-19 Vaccine (#1) 1997 Depression Screening 2009 Preventative Health Evaluation 2015 Cervical Cancer Screening (P ap Smear) 2018 Influenza Vaccine (#1) 2024 DTap / Tdap / Td (2 - Td or Tdap) 06/19/2028 019 Pneumococcal Vaccine Aged Out No long er eligible based on patient's age to complete this topic RSV Ped < 20 months Aged Out No longe r eligible based on patient's age to complete this topic Care Teams Tool Storage Attendant Relationship Specialty Start Date End Date Merissa López MD PCP - General Internal Medicine 04/02/20
[2024-08-06 11:22] VITALS: BP 112/74; PULSE 90; TEMP 37.4; O2SAT 96; BMI 27.7
--- NOTE | 2024-08-06 11:22 | AM.OFFWIN_ITS ---
Intake Vital Signs 08/06/24 11:22 Height 5 ft 7 in Weight 177 lb BMI 27.7 BP 112/74 Blood Pressure Location Rt brachial Position Sitting Pulse 90 Pulse Source Pulse Oximeter Temp 99.4 F Temp Source Oral Pulse Oximetry (%) 96 Intake Visit Reasons: EP ? flu symptoms diarreah, nauseous [phone] Patient Tobacco Use Status: Never used Tobacco Allergies No Known Allergies Allergy (Verified 08/06/24 11:22) Do you need a note to return to daycare/school/sports/work: Yes HPI HPI Comments History of Present Illness Details 29 y/o female patient who presents to [facility] walk [facility] clinic with c/o URI symptoms. Reports Nausea and vomiting, fevers, body aches and fatigue since this morning. PFSH Medical History Irritable bowel syndrome with constipation History of alopecia Breast pain, right Right ovarian cyst Acne vulgaris Mild intermittent asthma Fibroadenoma of right breast (Unknown) Surgical History Hx of wisdom tooth extraction Family History Paternal Grandfather Colon cancer Maternal Grandmother Mesothelioma Maternal Uncle Substance use disorder Mental health disorder Alcoholism Brother Substance use disorder Alcoholism Maternal Grandmother Substance use disorder Mental health disorder Maternal Grandfather Substance use disorder Maternal Aunt Mental health disorder Breast cancer Social History Housing: Condominium Alcohol intake: never Patient Tobacco Use Status: Never used Tobacco e-Cigarette/Vaping Use: Never Used service: No Current occupational status: employed 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 Sexual orientation: Straight/Heterosexual Gender identity: Female Cognitive needs: No Hearing needs: No Vision needs: No Female Reproductive History Menstrual Age of Menarche: 13 Review of Systems Const All systems reviewed & are unremarkable except as noted in HPI and below Physical Exam Vital Signs: Last Vital Signs Temp 99.4 F 08/06/24 11:22 Pulse 90 08/06/24 11:22 BP 112/74 08/06/24 11:22 Pulse Ox 96 08/06/24 11:22 BMI result Body Mass Index 27.7 Const General: cooperative and no acute distress Orientation/consciousness: patient oriented x3 HEENT Head: Yes normocephalic Ears: external ears normal and TM abnormal with fluid behind the TM bilateral General nose exam: Nasal discharge present Face and sinus: Yes sinuses nontender Mouth: moist mucous membranes Throat: Yes uvula midline Resp Effort & Inspection: normal respiratory effort and able to speak in complete sentences Auscultation: clear to auscultation bilaterally, no crackles, no rales, no rhonchi and no wheezes Cardio Heart sounds: S1 normal heart sound present and S2 normal heart sound present Neuro General: patient oriented x3 Assessment & Plan Assessment & Plan (1) Acute respiratory disease: Code(s): J06.9 - Acute upper respiratory infection, unspecified Plan: Acetaminophen for pain and fever relief Ordered SARs Hold Tamiflu for results Rest and hydrate well with warm fluids. BLAND diet. Orders: Orders SARS-CoV2/FLU/RSV Today J06.9 - Acute upper respiratory infection, unspecified Medications: New metoclopramide HCl (Reglan) 10 mg PO Q6H PRN 20 tabs 0RF nausea and vomiting R11.2 - Nausea with vomiting, unspecified oseltamivir (Tamiflu) 75 mg PO BID 5 days 10 caps 0RF J06.9 - Acute upper respiratory infection, unspecified Coding Level of Care Code Est Pt Level 4 (98135) Diagnoses Acute respiratory disease J06.9 Time Spent (min) 20
== END 2024-08-06 12:10 | disposition home or self-care (01) ==
PROVIDERS: PCP Internal Medicine; Visit Provider Nurse Practitioner Family
DX: J06.9 Acute upper respiratory infection, unspecified (principal)

== ENCOUNTER 2024-08-06 10:02 | Outpatient (REF) | payer OTHER, SELFPAY ==
--- OUTSIDE RECORDS SUMMARY | 2024-08-06 14:00 | XMS_ITS | Encounter Summary ---
Author Organization [facility] Address [address] [place] [address] Care Team Providers Care Yoga Instructor Name Role Phone Manjula Domínguez MD Primary Care Provider [facility], Pcp Primary Care Provider Unavailabl e Reason for Visit * Reason Onset Date Comments Faxed Refill 02/05/2020 ethynodiol-ethin yl estradiol (KELNOR 1/35) 1-35 MG-MCG per tablet Encounter Details Date Type Department Care Team Description 02/05/2020 Refill OBGYN - [place] [address] [place] [address] Jennifer Kim CN [address] [place] [address] Faxed Refill (ethynodiol-ethinyl estradiol (KELNOR 1/35) 1-35 MG-MCG per tablet) Social History Tobacco Use Types Packs/Day Years Used Date Smoking Tobacco: Never Smokeless Tobacco: Never Alcohol Use Standard Drinks/Week Comments No 0 (1 standard drink = 0.6 oz pur e alcohol) Sex Assigned at Date Recorded Female 01/04/2020 10:44 PM EDT documented as of this encounter Miscellaneous Notes * Telephone Encounter - Citlalli Moon - 02/05/2020 3:25 PM EDT WHEN WAS THE PATIENTS LAST ANNUAL CREDIT OR LOANS OFFICER EXAM? 10/02/18 Does patient have an upcoming appointment? Yes 03/28/20 (THE MEDICATION REQUESTED IS ON THE MED LIST ABOVE) Did you check the Pharmacy information above?: YES Indicate how soon the patient needs the script: BY THE END OF THE DAY Patient would like script to be: E-PRESCRIBED/FAXED TO PHARMACY Is the doctor here today?: NO Can the message wait until the doctor returns?: NO Has the patient been told that the prescription will not be filled until the end of the day? NO Payor: [employer] PLANS / Plan: PPO $35 [employer] [id number] userfox / Product Type: PPO [id number] documented in this encounter Plan of Treatment Not on file documented as of this encounter Visit Diagnoses Not on filedocumented in this encounter Care Teams Yoga Instructor Relationship Specialty Start Date End Date Manjula Domínguez MD PCP - General Internal Medicine 03/30/18 10/06/21 Dexter Michele PCP - General Internal Medicine 10/07/21 documented as of this encounter
--- OUTSIDE RECORDS SUMMARY | 2024-08-06 14:00 | XMS_ITS | Clinical Summary ---
Author Organization [facility] Address [address] [place] [address] Care Team Providers Care Major Assembly Inspector Name Role Phone Unavailable Primary Care Provider Unavailabl e Medications * This document contains information received from the source organization and may not represent a complete record from that organization. Hospital, Clinic, or Other Facility Administered Medication Ordered Dose Route Frequency Start Date End Date Status [facility] [id number] 12mg, 8mg, 4mg or placebo tablet [...]
--- OUTSIDE RECORDS SUMMARY | 2024-08-06 14:00 | XMS_ITS | Encounter Summary ---
Author Organization [facility] Address [address] [facility] [place] [address] Care Team Providers Care Knit Goods Cutter Hand Name Role Phone Manjula Domínguez MD Primary Care Provider Unavail able [facility], Pcp Primary Care Provider Unavailabl e Encounter Details Date Type Department Care Team Description 04/10/2020 Scruff Worker Report Medical Records [address] [place] [address] Karley Ellis MD Social History Tobacco Use Types Packs/Day Years Used Date Smoking Tobacco: Never Smokeless Tobacco: Never Alcohol Use Standard Drinks/Week Comments No 0 (1 standard drink = 0.6 oz pur e alcohol) Sex Assigned at Date Recorded Female 01/04/2020 10:44 PM EDT COVID-19 Exposure Response Date Recorded In the last month, have you been in contact with someone who was confirmed or suspected to have Coronavirus / COVID-19? No / Unsure 03/28/2020 10:55 AM EDT documented as of this encounter Plan of Treatment Not on file documented as of this encounter Visit Diagnoses Not on filedocumented in this encounter Care Teams Knit Goods Cutter Hand Relationship Specialty Start Date End Date Manjula Domínguez MD PCP - General Internal Medicine 03/30/18 10/06/21 [facility], Pcp PCP - General Internal Medicine 10/07/21 documented as of this encounter
--- OUTSIDE RECORDS SUMMARY | 2024-08-06 14:00 | XMS_ITS | Clinical Summary ---
Author Organization [facility] it Address [address] [place] [address] Care Team Providers Care Lavender Farm Worker Name Role Phone Merissa López MD Primary Care Provider [phone] Surgical History Surgery Date Site/Laterality Comments WISDOM [...] RESULTING AGENCY - 10/04/2018 2:55 PM EDT [id number] THINPREP PAP, IMAGED: NEGATIVE FOR SQUAMOUS INTRAEPITHELIAL [...] Recently Relevant to Health Maintenance Care Teams Lavender Farm Worker Relationship Specialty Start Date End Date Merissa López MD PCP - General Internal Medicine 04/02/20
--- OUTSIDE RECORDS SUMMARY | 2024-08-06 14:00 | XMS_ITS | Clinical Summary ---
Author Organization [facility] Address [address] [place] [address] Care Team Providers Care Athletic Shoe Designer Name Role Phone Merissa López MD Primary Care Provider [phone] Allergies No known active allergies Medications Medication [...] age to complete this topic Care Teams Athletic Shoe Designer Relationship Specialty Start Date End Date Merissa López MD PCP - General Internal Medicine 04/02/20
--- OUTSIDE RECORDS SUMMARY | 2024-08-06 14:00 | XMS_ITS | Encounter Summary ---
Author Organization [facility] Address [address] [place] [address] Care Team Providers Care Cafe Worker Name Role Phone Manjula Domínguez MD Primary Care Provider [facility], Pcp Primary Care Provider [facility] e Reason for Visit * Reason Onset Date Comments medication problems 06/23/2018 Encounter Details Date Type Department Care Team Description 06/23/2018 Telephone Adult Medicine [address] [address] Manjula Domínguez MD medication problems Social History Tobacco Use Types Packs/Day Years Used Date Smoking Tobacco: Never Smokeless Tobacco: Never Alcohol Use Standard Drinks/Week Comments No 0 (1 standard drink = 0.6 oz pur e alcohol) Sex Assigned at Date Recorded Female 01/04/2020 10:44 PM EDT documented as of this encounter Miscellaneous Notes * Telephone Encounter - Macie Maurer M.A. - 06/23/2018 3:22 PM EST Please correct sig on imitrex order pharmacist needs provider to write how many tablets per day * Telephone Encounter - Rina Dove - 06/23/2018 1:50 PM EST Who is calling? A pharmacist: Pharmacy: [facility] Pharmacist Name: Incoming fax Pharmacy Name of the medication sumatriptan (IMITREX) 25 MG What is the specific problem or interaction? What is the original dose? If the patient is having a problem with taking the med - how long has the problem been going on? N/A documented in this encounter Plan of Treatment Not on file documented as of this encounter Visit Diagnoses Not on filedocumented in this encounter Care Teams Cafe Worker Relationship Specialty Start Date End Date Manjula Domínguez MD PCP - General Internal Medicine 03/30/18 10/06/21 [facility], Pcp PCP - General Internal Medicine 10/07/21 documented as of this encounter
--- OUTSIDE RECORDS SUMMARY | 2024-08-06 14:00 | XMS_ITS | Encounter Summary ---
Author Organization [facility] Address [address] [place] [address] Care Team Providers Care Tank Processor Name Role Phone Manjula Domínguez MD Primary Care Provider Unavail able [facility], Pcp Primary Care Provider Unavailabl e Encounter Details Date Type Department Care Team Description 01/20/2021 Orders Only Medical Records [address] [place] [address] Carlos Nobles MD [address] [place] [address] Social History Tobacco Use Types Packs/Day Years Used Date Smoking Tobacco: Never Smokeless Tobacco: Never Alcohol Use Standard Drinks/Week Comments No 0 (1 standard drink = 0.6 oz pur e alcohol) Sex Assigned at Date Recorded Female 01/04/2020 10:44 PM EDT documented as of this encounter Plan of Treatment Not on file documented as of this encounter Procedures Procedure Name Priority Date/Time Associated Diagnosis Comments OUTSIDE ULTRASOUND Routine 01/20/2021 documented in this encounter Results * OUTSIDE ULTRASOUND (01/20/2021) Carlos Nobles MD RADIOLOGY documented in this encounter Visit Diagnoses Not on filedocumented in this encounter Care Teams Tank Processor Relationship Specialty Start Date End Date Manjula Domínguez MD PCP - General Internal Medicine 03/30/18 10/06/21 [facility], Pcp PCP - General Internal Medicine 10/07/21 documented as of this encounter
--- OUTSIDE RECORDS SUMMARY | 2024-08-06 14:00 | XMS_ITS | Encounter Summary ---
Author Organization [facility] Address [address] [place] [address] Care Team Providers Care Auto Finance Sales Rep Name Role Phone Manjula Domínguez MD Primary Care Provider [facility], Pcp Primary Care Provider Unavailabl e Reason for Visit * Reason Onset Date Comments My Chart Appointment 09/10/2020 Encounter Details Date Type Department Care Team Description 09/10/2020 Telephone Adult Medicine [address] [address] Manjula Domínguez MD My Chart Appointment Social History Tobacco Use Types Packs/Day Years [...] have Coronavirus / COVID-19? No / Unsure 08/29/2020 1:37 PM EDT documented as of this encounter Miscellaneous Notes * Telephone Encounter - Reyna Bueno - 09/10/2020 3:30 PM EDT Patient has scheduled a visit through My Chart. Please call patient to triage for appropriateness. Date appointment is booked: 09/30/2020 Appointment scheduled with Lakisha Hooker Reason for appointment: I???ve been having bad cramps in my stomach and severe bloating. My stool has been bloody on occasion and I have also had episodes of constipation. documented in this encounter Plan of Treatment Not on file documented as of this encounter Visit Diagnoses Not on filedocumented in this encounter Care Teams Auto Finance Sales Rep Relationship Specialty Start Date End Date Manjula Domínguez MD PCP - General Internal Medicine 03/30/18 10/06/21 [facility], Pcp PCP - General Internal Medicine 10/07/21 documented as of this encounter
--- OUTSIDE RECORDS SUMMARY | 2024-08-06 14:00 | XMS_ITS | Clinical Summary ---
Author Organization [facility] Address [address] [facility] [place] [address] Care Team Providers Care Medical Orderly Name Role Phone Community, Pcp Primary Care Provider Unavailabl e Allergies No known active allergies Medications Medication Sig Dispensed Refills Start Date End Date Status fexofenadine 180 MG tablet Take 1 Tab by mouth daily. 90 Tab 1 10/14/2019 Active fluticasone (FLOVENT HFA) 110 MCG/ACT inhaler Inhale 1 Puff into the lungs 2 times daily for 360 days. 1 Inhaler 2 01/15/2020 Active ALBUTEROL SULFATE 108 (90 Base) MCG/ACT Aero Soln Inhale 2 Puffs into the lungs every 4 hours as needed for Cough, Wheezing or Shortness of Breath. 3 Inhaler 3 03/24/2020 Active fluticasone (FLONASE) 50 MCG/ACT nasal spray 2 sprays in each nostril daily 3 Bottle 3 06/02/2020 Active doxycycline (VIBRAMYCIN) 100 MG capsule TAKE 1 CAPSULE (ORAL) 2 TIMES PER DAY FOR 10 DAYS FOR INFECTION 0 12/11/2020 Active SPACER DEVICE-ADULT Use to administer albuterol. 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 Overview: As well as CT scan with massively enlarged spleen, follows with hematology LDH, beta-2 microglobulin pending Allergic rhinitis due to pollen 11/12/19 20 Environmental and seasonal allergies 08/2019 Abnormal ultrasound of breast 02/07/2019 Overview: Benign lobulated finding on the right breast, pending ultrasound in July 201908/2020- Benign right breast nodule- pt wants removal Migraine headache 06/23/2018 Overview: Denies migraine with aura Alopecia 06/23/2018 Asthma Acid reflux Immunizations Name Administration Dates Next Due Influenza Flu (PT Reported) 07/07/2019 Tdap 06/19/2018 Family History Medical History Relation Name Comments Depression/Anxiety Brother acid reflux Brother Sleep Apnea Father acid reflux Father Cancer, Other Maternal Grandmother Mesoth elioma Asthma Mother acid reflux Mother CA Colon Other No Known Problems Sister CA Breast Negative Hx CA Ovarian Negative Hx Cervical Cancer Negative Hx Uterine Cancer Negative Hx Relation Name Status Comments Brother Alive Father Alive Maternal Grandfather Maternal Grandmother Mother Alive Other Paternal Grandfather Alive Paternal Grandmother Sister Alive Social History Tobacco Use Types Packs/Day Years Used Date Smoking Tobacco: Never Smokeless Tobacco: Never Tobacco Cessation:Counseling Given: No Alcohol Use Standard Drinks/Week Comments No 0 (1 standard drink = 0.6 oz pur e alcohol) Sex Assigned at Date Recorded Female 01/04/2020 10:44 PM EDT Last Filed Vital Signs Vital Sign Reading Time Taken Comments Blood Pressure 121/68 01/28/2021 8:23 AM EDT Pulse 76 01/28/2021 8:23 AM EDT Temperature 36.6 ??C (97.8 ??F) 01/28/2021 8:23 AM ED T Respiratory Rate 16 03/28/2020 11:07 AM EDT Oxygen Saturation 100% 03/24/2020 3:18 PM EDT Inhaled Oxygen Concentration - - Weight 72.6 kg (160 lb) 09/24/2020 10:51 AM EDT Height 170.2 cm (5' 7 ) 09/24/2020 10:51 AM EDT Body Mass Index 25.06 09/24/2020 10:51 AM EDT Plan of Treatment Health Maintenance Due Date Last Done Comments Covid-19 Vaccine (#1) 1997 PNEUMOCOCCAL VACCINE FOR HIG H RISK PATIENTS (#1) 01/24/2016 CERVICAL CANCER SCREENING 10/02/2021 10/02/2018 BASELINE HEALTH EXAM 18-39 06/19/2023 06/19/2018, CHOLESTEROL SCREENING 06/19/2023 06/19/2018 INFLUENZA (#1) 2024 07/13/2019 (Exte rnal Completion of Vaccination per patient), 07/07/2019, 02/22/2018 (Completed) BMI CHECK/ADVISE 06/13/2024 DTAP/TDAP/TD (2 - Td or Tdap) 06/19/2028 06/19/2018 Care Teams Medical Orderly Relationship Specialty Start Date End Date Community, Pcp PCP - General Internal Medicine 10/07/21
[2024-08-06 15:34] LABS: Influenza A PCR NEGATIVE (Negative); Influenza B PCR NEGATIVE (Negative); Resp Syncy Virus RNA Qual PCR NEGATIVE (Negative); SARS COV2 PCR INHOUSE NEGATIVE (Negative)
== END 2024-08-06 10:03 | disposition home or self-care (01) ==
LOC: HO.LAB 10:02
PROVIDERS: PCP Internal Medicine; Visit Provider Nurse Practitioner Family
DX: J06.9 Acute upper respiratory infection, unspecified (principal)
CPT/HCPCS: 0241U

== ENCOUNTER 2024-10-29 12:44 | Outpatient (AMB) | payer OTHER, SELFPAY ==
--- OUTSIDE RECORDS SUMMARY | 2024-10-29 12:57 | XMS_ITS | Clinical Summary ---
Author Organization [facility] it Address [address] [place] [address] Care Team Providers Care Head Silverman Name Role Phone Merissa López MD Primary Care Provider Surgical History Surgery Date Site/Laterality Comments WISDOM [...] - 2023-2 5 season) 2024 Influenza Vaccine (Season Ended) 2025 DTaP,Tdap,and Td Vaccines (2 - Td or [...] age to complete this topic Meningococcal B Vaccine Aged Out No l onger eligible based on patient's age to complete [...] RESULTING AGENCY - 10/04/2018 2:55 PM EDT [id number] THINPREP PAP, IMAGED: NEGATIVE FOR SQUAMOUS INTRAEPITHELIAL LESION AND MALIGNANCY . MIRANDA VIDALES(ASCP) (CASE ELECTRONICALLY SIGNED 10 04 2018) ADEQUACY: SATISFACTORY ENDOCERVICAL/TRANSFORMATION ZONE COMPONENT PRESENT. SOURCE: THINPREP PAP HPV IF ASCUS, CERVICAL, IMAGED CLINICAL INFORMATION: HPV IF DIAGNOSIS OF ASCUS. Z12.4 Balbir Ellison CNM LAB CYTOLOGY ORDERA BLES Final Result HISTORICAL TESTING LAB RESULTING AGENCY from Last 3 Months or Most Recently Relevant to Health Maintenance Care Teams Head Silverman Relationship Specialty Start Date End Date Merissa López MD PCP - General Internal Medicine 04/02/20
--- OUTSIDE RECORDS SUMMARY | 2024-10-29 12:57 | XMS_ITS | Clinical Summary ---
Author Organization [facility] Address [address] [place] [address] Care Team Providers Care Team Leader/Research Psychologist Name Role Phone Merissa López MD Primary Care Provider [phone] Allergies No known active allergies Medications Medication [...] age to complete this topic Care Teams Team Leader/Research Psychologist Relationship Specialty Start Date End Date Merissa López MD PCP - General Internal Medicine 04/02/20
--- OUTSIDE RECORDS SUMMARY | 2024-10-29 12:57 | XMS_ITS | Data Portability ---
Author Organization [facility], [address] Address [address] [place] [address] Assessment No assessment recorded. Plan of Treatment Reminders Order Date Submit Date Provider Last Modified By Organization Details Last Modified Time Details Appointments None recorded. Lab SARS CoV 2 (COVID-19) Ag, QL, IA, upper respiratory specimen 2023 024 [email or web address] [place], [address], 10:05:25 Referral None recorded. Procedures None recorded. Surgeries None recorded. Imaging None recorded. Medication Orders None recorded. Patient TargetsNo targets recorded. Patient Instructions Encounter Date Encounter Id Patient Instructions Last Modified By Organization Details Last Modified Time 02/19/2024 [id number] as we discussed most cases of diarrhea [...] ve Not Available [address] [place], [address], 02/19/2024 09:24:00 02/19/20 24 02/19/2024 SARS CoV 2 (COVI D-19) Ag, QL, IA, upper respi rator y speci men Unknown Analyte yes Not Available [address] [place], [address], 02/19/2024 09:24:00 Result Notes None recorded. Medical [...] and Address Organization Details Last Updated DateTime 170.18 cm 26.6 kg/m2 44958.7 g 99 % 99 % 88 /min 98.1 [degF] 115 mm[Hg] 69 mm[Hg] Uyen Peterson [facility] 09:18:39 Social History Question Answer Notes LastModified by DossierView Details LastModified Time Tobacco Smoking Status Never Smoker Uyen fernandez PA [facility] 02/19/2024 09:22:44 Which Illicit Or Recreational Drugs Have You Used? MARIJUANA Information not available 02/19/2024 Have You Had A Flu Shot This Season? Yes Information not available 02/19/2024 If No, Would You Like A Flu Shot Today? No Information not available 02/19/2024 What Is Your Relationship Status? Other ENGAGED Information not available 02/19/2024 Are You Passively Exposed To Smoke? No Information not available 02/19/2024 Have You Recently Traveled Abroad? No Information not available 02/19/2024 Sex: Unknown Functional Status Question Answer Note LastModified by DossierView Details LastModified Time Do you use any illicit or recreational drugs? Yes Information not available 02/19/2024 Do you or have you ever used any other forms of tobacco or nicotine? No Information not available 02/19/2024 What is your level of alcohol consumption? None Information not available 02/19/2024 Are you currently employed? Yes Information not available 02/19/2024 Mental Status None recorded. Family History Nothing Reported. Medical History No medical history recorded. Gynecological History Statement/Question Response Is there any chance of ? No LMP N/A Obstetrics History GPAL:G 0 P 0 0 0 0 Past Encounters Encounter ID Performer Location Encounter Start Date Encounter Closed Date Diagnosis/Indication Diagnosis SNOMED-CT Code Diagnosis ICD10 Code Diagnosis Note [id number] [facility] [address] [place] [address] 03/30/2018 14:00:17 03/30/2018 15:22:18 [id number] [address] [place] [address] 02/01/2020 16:34:44 02/01/2020 18:34:14 [id number] [address] [place] [address] 11/22/2021 08:36:55 11/22/2021 11:09:01 [id number] [address] [place] [address] 06/01/2018 11:22:31 06/01/2018 11:59:46 [id number] [address] [place] [address] 12/11/2020 18:03:14 12/11/2020 18:44:16 [id number] [address] [place] [address] 09/13/2021 08:19:48 09/13/2021 09:25:31 [id number] [facility] Marie [address] [place] [address] 02/19/2024 09:11:37 02/19/2024 10:07:08 Viral gastroenteritis 471099601 A08.4 Health Concerns Section Related Observation LastModified by Organization Detai ls LastModified Time None Recorded Concern Status LastModified by Organization Details LastModified Time None Recorded Advance Directives Directive None Recorded Payers Insurance Date Sequence Insurance Name Policy Number Policy Kumar Covered Member ID Kumar Member ID Guarantor Name 03/01/2024 1 [facility] [id number] Omayra Wylie [id number] Omayra Wylie 02/19/2024 1 [facility] [id number] Omayra Carr Inessa [id number] Omayra Inessa 05/12/2022 [facility] Occ Med Generic (Move To Hold) [[id number]] Omayra Wylie Notes Date Note Type Note Provider Name and Address Organization Details Recorded Time 4 text/html COVID-19 SymptomsReported bypatient.COVID-19 Signs and Symptomsheadache same; vomiting or diarrhea same; fatigue same Severity:mild (cramping preceeding diarrhea episodes) Associated Symptoms:no sputum production; no wheezing;diarrhea;ana rosa sea;body aches SUDEEP Meyer [address] [place], [address], [place] - [facility] 02/19/2024 10:06:35 OBGyn Episode No OBEpisode recorded.
--- OUTSIDE RECORDS SUMMARY | 2024-10-29 12:57 | XMS_ITS ---
Author Name [facility] Organization Unknown Encounters Encounter Type Encounter Reason Primary Diagnosis Location Date Ambulatory [facility] 10/[address] [facility] 08/[address] [facility] 06/[address] [facility] 04/26 Care Team Organization Name Specialty Phone Email Start Date End Da te [facility] 04/16/2024 [facility] 04/16/2024
--- OUTSIDE RECORDS SUMMARY | 2024-10-29 12:57 | XMS_ITS | Clinical Summary ---
Author Organization [facility] Address [address] [place] [address] Care Team Providers Care Air Crew Member Name Role Phone Unavailable Primary Care Provider Unavailabl e Medications * This document contains information received from the source organization and may not represent a complete record from that organization. Hospital, Clinic, or Other Facility Administered Medication Ordered Dose Route Frequency Start Date End Date Status [facility] [id number] CTP-543 12mg, 8mg, 4mg or placebo tablet [...] screening 2015 Cervical cancer screening 10/02/2021 10/02/2018 Covid-19 vaccine series (2023- season) 2024 Influenza vaccine 02/11/2025 Tetanus adult (Td q 10,TDAP once) 06/19/2028 019 RSV Immunization (1 - 1-dose 75+ series) 01/24/2072 Meningococcal Vaccine Aged Out No sidra chelsey eligible based on patient's age to complete this topic Pneumococcal Vaccine (2 - 49 years) Aged Out No longer eligible b ased on patient's age to complete this topic
[2024-10-29 13:07] VITALS: BP 110/80; PULSE 84; RESP 20; TEMP 36.7; O2SAT 96; BMI 27.1
--- NOTE | 2024-10-29 13:07 | MHC.PC.OV ---
Vital Signs 10/29/24 13:07 Height 5 ft 7 in Weight 173 lb BMI 27.1 BP 110/80 Blood Pressure Location Lt brachial Position Sitting Respiration 20 Pulse 84 Pulse Source Pulse Oximeter Temp 98.1 F Temp Source Oral Pulse Oximetry (%) 96 Oxygen Delivery Method Room Air Intake Visit Reasons: increase anxiety/panic attacks. Intake Note: Pt is here today c/o increase anxiety and panic attacks Accompanied by: fiancee Allergies No Known Allergies Allergy (Verified 10/29/24 13:17) Medication List - Last Reconciled 10/29/24 by Emerald Britt MD albuterol sulfate 90 mcg/actuation 2 puffs inhalation Q6H PRN Tobacco use date assessed: 10/29/24 Dental Screening Dental Screen Date: 10/29/24 HPI increase anxiety/panic attacks. HPI Details - The patient is a 29-year-old female presenting with anxiety management. - Reports of anxiety attacks without specific triggers, particularly in social settings such as a nail salon. - No history of prior medication for anxiety; however, buspirone is considered based on positive family experience. - Denies depression or other mood disorders, but a past low vitamin D level (at 26 ng/mL) is noted, under ongoing supplementation. - Upcoming life events, like her wedding, augment concerns about anxiety. - No recent changes in health status including laboratory results that rule out anemia and confirm low vitamin D levels. -strong family history for anxiety disorder. [facility] Medical History (Updated 10/29/24 @ 13:28 by Emerald Britt MD) Vitamin D deficiency Generalized anxiety disorder Irritable bowel syndrome with constipation History of alopecia Right ovarian cyst Acne vulgaris Mild intermittent asthma Fibroadenoma of right breast (Unknown) Surgical History Hx of wisdom tooth extraction Family History Paternal Grandfather Colon cancer Maternal Grandmother Mesothelioma Maternal Uncle Substance use disorder Mental health disorder Alcoholism Brother Substance use disorder Alcoholism Maternal Grandmother Substance use disorder Mental health disorder Maternal Grandfather Substance use disorder Maternal Aunt Mental health disorder Breast cancer Social History Housing: Condominium Alcohol intake: never Patient Tobacco Use Status: Never used Tobacco e-Cigarette/Vaping Use: Never Used service: No Current occupational status: employed 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 1. Little interest or pleasure in doing things: not at all 2. Feeling down, depressed, or hopeless: not at all 3. Trouble falling or staying asleep, or sleeping too much: not at all 4. Feeling tired or having little energy: several days 5. Poor appetite or overeating: not at all 6. Feeling bad about yourself - or that you are a failure or have let yourself or your family down: not at all 7. Trouble concentrating on things, such as reading the newspaper or watching television: not at all 8. Moving or speaking so slowly that other people could have noticed. Or the opposite - being so fidgety or restless that you have been moving around a lot more than usual: not at all 9. Thoughts that you would be better off or of hurting yourself in some way: not at all Total score: 1 Depression Screening Interpretation: Negative Depression Screening Done: Yes 26985 - PHQ-9 Billing: Yes Source: Developed by Drs. Isauro Emanuel, Danika Bey, Corky Peterson and colleagues, with an educational jose from [email or web address]. Thrive Questionnaire Date Thrive assessed: 12/28/23 I am a: Patient What is your living situation today?: I have a steady place to live Within the past 12 months, did the food you bought not last and you didn't have the money to get more?: Never true Within the past 12 months, did you worry whether your food would run out before you got money to buy more?: Never true Do you have trouble paying for medicines?: No Do you have trouble getting transportation to medical appointments?: No Do you have trouble paying your heating and electricity bill?: No Do you have trouble taking care of your child, family member or friend?: No Do you have trouble with day-to-day activities such as bathing, preparing meals, shopping, managing finances, etc.?: No Are you currently unemployed and looking for a job?: No Are you interested in more education?: No Please select the resources that you would like help with: None Currently or been in a relationship where the following occur: No concerns reported THRIVE Score: 0 AUDIT C Alcohol Use Questionnaire (AUDIT-C) 1. How often do you have a drink containing alcohol?: Never Total Score: 0 ENRIQUE-7 AMB Questionnaire ENRIQUE-7 Date ENRIQUE - 7 assessed: 01/04/24 Feeling nervous, anxious, or on edge: 2 = More than half the days Not being able to stop or control worryin = More than half the days Worrying too much about different things: 2 = More than half the days Trouble relaxin = Several days Being so restless that it is hard to sit still: 0 = Not at all Becoming easily annoyed or irritable: 1 = Several days Feeling afraid as if something awful might happen: 0 = Not at all Total ENRIQUE-7 score (0-4 normal; 5-9 mild; 10-14 moderate; 15-21 severe): 8 Source: Developed by Drs. Isauro Emanuel, Danika Bye, Corky Peterson and colleagues, with an educational jose from [email or web address]. ENRIQUE-7 Assessment Billing ENRIQUE-7 Assessment Tool: ENRIQUE-7 Assessment 11170 Review of Systems Const All systems reviewed & are unremarkable except as noted in HPI and below Physical exam (Primary Care) Vital Signs: Last Vital Signs Temp 98.1 F 10/29/24 13:07 Pulse 84 10/29/24 13:07 Resp 20 10/29/24 13:07 BP 110/80 10/29/24 13:07 Pulse Ox 96 10/29/24 13:07 Oxygen Delivery Method Room Air 10/29/24 13:07 BMI result Body Mass Index 27.1 Tobacco/Smoking Status: Tobacco use Status Tobacco use date assessed 10/29/24 10/29/24 13:10 Patient Tobacco Use Status Never used Tobacco 10/29/24 13:09 e-Cigarette/Vaping Use Never Used 10/29/24 13:09 PHQ-9: PHQ-9 Score PHQ-9: Total score 1 10/29/24 13:29 Depression Screening Interpretation: Negative Thrive Assessment: Date of Thrive Assessment Date Thrive assessed 12/28/23 10/29/24 13:09 Currently or been in a relationship where the following occur: No concerns reported Const Other: Alert oriented x3, no acute distress noted, ambulatory normal gait Nutritional Appearance: average body habitus Orientation/consciousness: patient oriented x3 HENMT Face and sinus: Yes face symmetric Neck Neck: Yes supple Resp Effort & Inspection: normal respiratory effort and able to speak in complete sentences Auscultation: clear to auscultation bilaterally Cardio Other: S1-S2 present regular rate and rhythm Neuro General: patient oriented x3, tone normal, moves all extremities, no focal motor deficits and CN's II-XI intact bilaterally Extrem General: Yes full ROM, Yes no clubbing, cyanosis or edema and Yes normal gait Psych Appearance: grossly normal and well kempt Mental Status: mental status grossly normal Speech and movement: Normal speech and movement present Affect: normal affect Coding Level of Care Code Est Pt Level 4 (57614) Diagnoses Generalized anxiety disorder F41.1 Additional Codes PHQ-9 - 67155 - PHQ-9 Billing: Yes ([id number]) ENRIQUE-7 Assessment Billing - ENRIQUE-7 Assessment Tool: ENRIQUE-7 Assessment 64595 ([id number]) Assessment & Plan Assessment & Plan (1) Generalized anxiety disorder: Code(s): F41.1 - Generalized anxiety disorder Category: Medical Plan: Started on buspirone 5 mg per tablet to take tablet 3 times a day. May just dose twice just once a day depending on response to medication. Will see her back for follow-up in December 2024, declines referral for counseling Orders: Orders Glucose Fasting 12/15/24 E55.9 - Vitamin D deficiency, unspecified, F41.1 - Generalized anxiety disorder, K58.1 - Irritable bowel syndrome with constipation Aspartate Amino Transferase 12/15/24 E55.9 - Vitamin D deficiency, unspecified, F41.1 - Generalized anxiety disorder, K58.1 - Irritable bowel syndrome with constipation Lipid Panel 12/15/24 E55.9 - Vitamin D deficiency, unspecified, F41.1 - Generalized anxiety disorder, K58.1 - Irritable bowel syndrome with constipation Vitamin D 25-OH Total 12/15/24 E55.9 - Vitamin D deficiency, unspecified, F41.1 - Generalized anxiety disorder, K58.1 - Irritable bowel syndrome with constipation Alanine Aminotransferase 12/15/24 E55.9 - Vitamin D deficiency, unspecified, F41.1 - Generalized anxiety disorder, K58.1 - Irritable bowel syndrome with constipation TSH reflex Free T4 12/15/24 E55.9 - Vitamin D deficiency, unspecified, F41.1 - Generalized anxiety disorder, K58.1 - Irritable bowel syndrome with constipation Medications: New buspirone 5 mg PO TID 90 tabs 1RF F41.1 - Generalized anxiety disorder
== END 2024-10-29 14:13 | disposition home or self-care (01) ==
LOC: HO.HMCC 12:44
PROVIDERS: PCP Internal Medicine; Visit Provider Internal Medicine
DX: F41.1 Generalized anxiety disorder (principal)

== ENCOUNTER → 2024-10-29 12:44 | Outpatient (BNVA) | payer OTHER, SELFPAY | PROVIDERS: PCP Internal Medicine; Visit Provider Internal Medicine | DX: F41.1 Generalized anxiety disorder (principal) | CPT/HCPCS: 96127 ==

== ENCOUNTER 2024-12-07 08:06 | Outpatient (AMB) | payer OTHER, SELFPAY ==
--- NOTE | 2024-12-07 08:07 | MHC.PC.OV ---
Intake Visit Reasons: Anxiety Heel Slugger Required: No Accompanied by: Self / Same As Patient Allergies No Known Allergies Allergy (Verified 12/07/24 08:14) Medication List - Last Reconciled 12/07/24 by Emerald Britt MD albuterol sulfate 90 mcg/actuation 2 puffs inhalation Q6H PRN buspirone 5 mg PO TID Tobacco use date assessed: 10/29/24 Dental Screening Dental Screen Date: 10/29/24 HPI Anxiety HPI Details Telehealth visit today with 29-year-old female here for follow-up on her anxiety disorder. She was started on buspirone 5 mg per tablet which she has only been taking twice a day. Patient initially states that it has been helping, but still gets breakthrough anxiety attacks even at work, and would like to see if she can go higher on the dose. Does not see a therapist as she has seen 1 in the past and found it not helpful. [facility] Medical History Vitamin D deficiency Generalized anxiety disorder Irritable bowel syndrome with constipation History of alopecia Right ovarian cyst Acne vulgaris Mild intermittent asthma Fibroadenoma of right breast (Unknown) Surgical History Hx of wisdom tooth extraction Family History Paternal Grandfather Colon cancer Maternal Grandmother Mesothelioma Maternal Uncle Substance use disorder Mental health disorder Alcoholism Brother Substance use disorder Alcoholism Maternal Grandmother Substance use disorder Mental health disorder Maternal Grandfather Substance use disorder Maternal Aunt Mental health disorder Breast cancer Social History Housing: Condominium Alcohol intake: never Patient Tobacco Use Status: Never used Tobacco e-Cigarette/Vaping Use: Never Used service: No Current occupational status: employed 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 Sexual orientation: Straight/Heterosexual Gender identity: Female Cognitive needs: No Hearing needs: No Vision needs: No Female Reproductive History Menstrual Age of Menarche: 13 Questionnaire Thrive Questionnaire Date Thrive assessed: 10/29/24 I am a: Patient What is your living situation today?: I have a steady place to live Within the past 12 months, did the food you bought not last and you didn't have the money to get more?: Never true Within the past 12 months, did you worry whether your food would run out before you got money to buy more?: Never true Do you have trouble paying for medicines?: No Do you have trouble getting transportation to medical appointments?: No Do you have trouble paying your heating and electricity bill?: No Do you have trouble taking care of your child, family member or friend?: No Do you have trouble with day-to-day activities such as bathing, preparing meals, shopping, managing finances, etc.?: No Are you currently unemployed and looking for a job?: No Are you interested in more education?: No Please select the resources that you would like help with: None Currently or been in a relationship where the following occur: No concerns reported THRIVE Score: 0 AUDIT C Alcohol Use Questionnaire (AUDIT-C) 1. How often do you have a drink containing alcohol?: Never 3. How often do you have six or more drinks on one occasion?: Never Total Score: 0 ENRIQUE-7 AMB Questionnaire ENRIQUE-7 Date ENRIQUE - 7 assessed: 12/07/24 Feeling nervous, anxious, or on edge: 2 = More than half the days Not being able to stop or control worryin = Several days Worrying too much about different things: 1 = Several days Trouble relaxin = More than half the days Being so restless that it is hard to sit still: 0 = Not at all Becoming easily annoyed or irritable: 0 = Not at all Feeling afraid as if something awful might happen: 1 = Several days Total ENRIQUE-7 score (0-4 normal; 5-9 mild; 10-14 moderate; 15-21 severe): 7 Source: Developed by Drs. Isauro Emanuel, Danika Bey, Corky Peterson and colleagues, with an educational jose from [employer]. ENRIQUE-7 Assessment Billing ENRIQUE-7 Assessment Tool: ENRIQUE-7 Assessment 20786 Review of Systems Const All systems reviewed & are unremarkable except as noted in HPI and below Physical exam (Primary Care) Tobacco/Smoking Status: Tobacco use Status Tobacco use date assessed 10/29/24 12/07/24 08:09 Patient Tobacco Use Status Never used Tobacco 12/07/24 08:09 e-Cigarette/Vaping Use Never Used 12/07/24 08:09 Thrive Assessment: Date of Thrive Assessment Date Thrive assessed 10/29/24 12/07/24 08:09 Currently or been in a relationship where the following occur: No concerns reported Telehealth Telehealth Telehealth Platform: [employer] Location of provider rendering services: practice address Location of patient: address on file Patient Identification confirmed using: Name, : Yes Telehealth method: video Patient verbally consented to treatment: Yes Patient verbally consented to billing insurance company: Yes Patient informed of any privacy concerns related to visit: Yes Minutes spent on Phone/Video with Pt.: 15 Coding Level of Care Code Tele Est Pt Level 3 (89317) Diagnoses Generalized anxiety disorder F41.1 Additional Codes ENRIQUE-7 Assessment Billing - ENRIQUE-7 Assessment Tool: ENRIQUE-7 Assessment 49679 ([id number]) Assessment & Plan Assessment & Plan (1) Generalized anxiety disorder: Code(s): F41.1 - Generalized anxiety disorder Category: Medical Plan: Will continue on buspirone, but dose increased to 7.5 mg per tablet to be taken 1 tablet twice a day . reinforced importance of continuing with behavioral techniques to alleviate anxiety, does not want to be referred for therapy. Will see her for follow-up and physical exam in 2 weeks Medications: New buspirone 7.5 mg PO BID 60 tabs 1RF F41.1 - Generalized anxiety disorder Discontinued buspirone Discontinued Reason: Doctor's Order 5 mg PO TID 90 tabs 1RF F41.1 - Generalized anxiety disorder
== END 2024-12-07 08:33 | disposition home or self-care (01) ==
LOC: HO.HMCC 08:06
PROVIDERS: PCP Internal Medicine; Visit Provider Internal Medicine
DX: F41.1 Generalized anxiety disorder (principal)

== ENCOUNTER → 2024-12-07 08:06 | Outpatient (BNVA) | payer OTHER, SELFPAY | PROVIDERS: PCP Internal Medicine; Visit Provider Internal Medicine | DX: F41.1 Generalized anxiety disorder (principal) | CPT/HCPCS: 96127 ==

== ENCOUNTER 2024-12-19 08:18 | Outpatient (REF) | payer OTHER, SELFPAY ==
--- OUTSIDE RECORDS SUMMARY | 2024-12-19 08:27 | XMS_ITS | Clinical Summary ---
Author Organization [facility] [address] [facility] Address [address] [place] [address] Care Team Providers Care Blood Donor Recruiter Name Role Phone Unavailable Primary Care Provider Unavailabl e Medications * This document contains information received from the source organization and may not represent a complete record from that organization. Hospital, Clinic, or Other Facility Administered Medication Ordered Dose Route Frequency Start Date End Date Status [facility] [id number] CTP-543 12mg, 8mg, 4mg or placebo tablet [...]
--- OUTSIDE RECORDS SUMMARY | 2024-12-19 08:27 | XMS_ITS | Clinical Summary ---
Author Organization [facility] it Address [address] [place] [address] Care Team Providers Care Litigation Counsel Name Role Phone Merissa López MD Primary Care Provider [phone] Surgical History Surgery Date Site/Laterality Comments WISDOM [...] 5 Years) and At-Risk Patients (6 to 49 Years) (1 of 2 - PCV) 01/24/2016 Cervical Cancer Screening: P ap Smear 10/02/2021 10/02/2018 Depression Screening 05/16/2022 HIV Screening 05/16/2022 Hepatitis C Screening 05/16/2022 Social Influencers of Health Screening 05/16/2022 COVID-19 Vaccine (1 - 2023-2 5 season) 2024 Influenza Vaccine (#1) 2025 DTaP,Tdap,and Td Vaccines (2 - Td [...] RESULTING AGENCY - 10/04/2018 2:55 PM EDT [id number] THINPREP PAP, IMAGED: NEGATIVE FOR SQUAMOUS INTRAEPITHELIAL [...] Recently Relevant to Health Maintenance Care Teams Litigation Counsel Relationship Specialty Start Date End Date Merissa López MD PCP - General Internal Medicine 04/02/20
--- OUTSIDE RECORDS SUMMARY | 2024-12-19 08:27 | XMS_ITS ---
Author Name [facility] Organization Unknown Encounters Encounter Type Encounter Reason Primary Diagnosis Location Date Ambulatory [facility] 12/[address] [facility] 10/[address] [facility] 08/[address] [facility] 06/[address] [facility] 04/26 Care Team Organization Name Specialty Phone Email Start Date End Da te [facility] 04/16/2024 [facility] 04/16/2024
--- OUTSIDE RECORDS SUMMARY | 2024-12-19 08:28 | XMS_ITS | Data Portability ---
Author Organization [facility] [address] Address [address] [place] [address] Assessment No assessment recorded. Plan of Treatment Reminders Order Date Submit Date Provider Last Modified By Organization Details Last Modified Time Details Appointments None recorded. Lab SARS CoV 2 (COVID-19) Ag, QL, IA, upper respiratory specimen 2023 [email or web address] [place], [address], 10:05:25 Referral None recorded. Procedures None recorded. Surgeries None recorded. Imaging None recorded. Medication Orders None recorded. Patient TargetsNo targets recorded. Patient Instructions Encounter Date Encounter Id Patient Instructions Last Modified By Organization Details Last Modified Time 02/19/2024 [id number] as we discussed most cases of diarrhea [...] men Unknown Analyte negati ve Not Available [address], [place], [address], 02/19/2024 09:24:00 02/19/2002/19/2024 SARS CoV 2 (COVI D-19) Ag, QL, IA, upper respi rator y speci men Unknown Analyte yes Not Available [address] [place], [address], 02/19/2024 09:24:00 Result Notes None recorded. Medical [...] Pulse oximetry Heart rate Body temperature Systolic And Diastolic Provider Name and Address Organization Details Last Updated DateTime 170.18 cm 26.6 kg/m2 62027.7 g 99 % 99 % 88 /min 98.1 [degF] 115/69 mm[Hg] Uyen Peterson PA [facility] 09:18:39 Social History Question Answer Notes LastModified by Evergram Details LastModified Time Tobacco Smoking Status Never Smoker Uyen fernandez PA - [facility] 02/19/2024 09:22:44 Which Illicit Or Recreational [...] Functional Status Question Answer Note LastModified by Evergram Details LastModified Time Do you use any [...] SNOMED-CT Code Diagnosis ICD10 Code Diagnosis Note [id number] [address] [place] [address] 03/30/2018 14:00:17 03/30/2018 15:22:18 [id number] [address] [place] [address] 02/01/2020 16:34:44 02/01/2020 18:34:14 [id number] [address] [place] [address] 11/22/2021 08:36:55 11/22/2021 11:09:01 [id number] [address] [place] [address] 06/01/2018 11:22:31 06/01/2018 11:59:46 [id number] [address] [place] [address] 12/11/2020 18:03:14 12/11/2020 18:44:16 [id number] [address] [place] [address] 09/13/2021 08:19:48 09/13/2021 09:25:31 [id number] [facility] Marie [address] [place] [address] 02/19/2024 09:11:37 02/19/2024 10:07:08 Viral gastroenteritis [id number] A08.4 Health Concerns Section Related Observation LastModified by Organization Detai ls LastModified Time None Recorded Concern Status LastModified by Organization Details LastModified Time None Recorded Advance Directives Directive None Recorded Payers Insurance Date Sequence Insurance Name Policy Number Policy Kumar Covered Member ID Kumar Member ID Guarantor Name 03/01/2024 1 [facility] [id number] Omayra Wylie [id number] Omayra Wylie 02/19/2024 1 [facility] [id number] Omayra Lilly Wylie [id number] Omayra Wylie 05/12/2022 [employer]-Med[employer] Occ Med Generic (Move To Hold) [[id number]] Omayra Wylie Notes Date Note Type Note Provider Name and Address Organization Details Recorded Time 4 text/html COVID-19 SymptomsReported bypatient.COVID-19 Signs and Symptomsheadache same; vomiting or diarrhea same; fatigue same Severity:mild (cramping preceeding diarrhea episodes) Associated Symptoms:no sputum production; no wheezing;diarrhea;ana rosa sea;body aches SUDEEP Meyer [address] [place], [address], [place] - [facility] 02/19/2024 10:06:35 OBGyn Episode No OBEpisode recorded.
[2024-12-19 11:18] LABS: Alanine Aminotransferase 21 U/L (0-31); Aspartate Amino Transferase 23 U/L (5-31); Cholesterol 175 mg/dL (<200); HDL Cholesterol 78 mg/dL (>40); Triglycerides 45 mg/dL (<150)
== END 2024-12-19 08:19 | disposition home or self-care (01) ==
LOC: HO.HMGCLDS 08:18
PROVIDERS: PCP Internal Medicine; Visit Provider Internal Medicine
DX: F41.1 Generalized anxiety disorder (principal); K58.1 Irritable bowel syndrome with constipation; E55.9 Vitamin D deficiency, unspecified
CPT/HCPCS: 36415; 80061; 82306; 82947; 84443; 84450; 84460

== ENCOUNTER 2024-12-20 15:53 | Outpatient (AMB) | payer OTHER, SELFPAY ==
--- OUTSIDE RECORDS SUMMARY | 2024-12-20 15:56 | XMS_ITS | Encounter Summary ---
Author Organization [facility] Address [address] [facility] [place] [address] Care Team Providers Care Memorial Marker Designer Name Role Phone Manjula Domínguez MD Primary Care Provider Unavail able [facility], Pcp Primary Care Provider Unavailabl e Encounter Details Date Type Department Care Team Description 04/25/2020 Director [employer] Report Medical Records [address] [place] [address] Karley Ellis MD Social History Tobacco Use [...] on filedocumented in this encounter Care Teams Memorial Marker Designer Relationship Specialty Start Date End Date Manjula Domínguez MD PCP - General Internal Medicine 03/30/18 10/06/21 [facility], Pcp PCP - General Internal Medicine 10/07/21 documented as of this encounter
--- OUTSIDE RECORDS SUMMARY | 2024-12-20 15:56 | XMS_ITS | Clinical Summary ---
Author Organization [facility] it Address [address] [place] [address] Care Team Providers Care Vasc Tech Name Role Phone Merissa López MD Primary Care Provider [phone] Surgical History Surgery Date Site/Laterality Comments WISDOM [...] RESULTING AGENCY - 10/04/2018 2:55 PM EDT [id number] THINPREP PAP, IMAGED: NEGATIVE FOR SQUAMOUS INTRAEPITHELIAL [...] Recently Relevant to Health Maintenance Care Teams Vasc Tech Relationship Specialty Start Date End Date Merissa López MD PCP - General Internal Medicine 04/02/20
--- OUTSIDE RECORDS SUMMARY | 2024-12-20 15:56 | XMS_ITS | Clinical Summary ---
Author Organization [facility] Address [address] [place] [address] Care Team Providers Care Litigation Legal Secretary Name Role Phone Unavailable Primary Care Provider Unavailabl e Medications * This document contains information received from the source organization and may not represent a complete record from that organization. Hospital, Clinic, or Other Facility Administered Medication Ordered Dose Route Frequency Start Date End Date Status [facility] [id number] 12mg, 8mg, 4mg or placebo tablet [...]
--- OUTSIDE RECORDS SUMMARY | 2024-12-20 15:56 | XMS_ITS | Data Portability ---
Author Organization [facility], [address] Address [address] [place] [address] Assessment No assessment recorded. Plan of Treatment Reminders Order Date Submit Date Provider Last Modified By Organization Details Last Modified Time Details Appointments None recorded. Lab SARS CoV 2 (COVID-19) Ag, QL, IA, upper respiratory specimen [address]23 [email or web address] [place], [address], 10:05:25 Referral None recorded. Procedures None recorded. Surgeries None recorded. Imaging None recorded. Medication Orders None recorded. Patient TargetsNo targets recorded. Patient Instructions Encounter Date Encounter Id Patient Instructions Last Modified By Organization Details Last Modified Time 02/19/2024 [id number] as we discussed most cases of diarrhea [...] Available [address], [place], [address], 02/19/2024 09:24:00 02/19/2002/19/2024 SARS CoV 2 (COVI D-19) Ag, QL, IA, upper respi rator y speci men Unknown Analyte yes Not Available [address] [place], [address], 02/19/2024 09:24:00 Result Notes None recorded. Medical [...] Last Updated DateTime 170.18 cm 26.6 kg/m2 38787.7 g 99 % 99 % 88 /min 98.1 [degF] 115/69 mm[Hg] Uyen Peterson PA [facility] 09:18:39 Social History Question Answer Notes LastModified by Augmate Details LastModified Time Tobacco Smoking Status Never Smoker Uyen fernandez PA - [employer] [facility] 02/19/2024 09:22:44 Which Illicit Or Recreational [...] Functional Status Question Answer Note LastModified by Augmate Details LastModified Time Do you use any [...] SNOMED-CT Code Diagnosis ICD10 Code Diagnosis Note [id number] [address] [place] [address] 03/30/2018 14:00:17 03/30/2018 15:22:18 [id number] [address] [place] [address] 02/01/2020 16:34:44 02/01/2020 18:34:14 [id number] [address] [place] [address] 11/22/2021 08:36:55 11/22/2021 11:09:01 [id number] [address] [place] [address] 06/01/2018 11:22:31 06/01/2018 11:59:46 [id number] [address] [place] [address] 12/11/2020 18:03:14 12/11/2020 18:44:16 [id number] [address] [place] [address] 09/13/2021 08:19:48 09/13/2021 09:25:31 [id number] [facility]EP Marie [address] [place] [address] 02/19/2024 09:11:37 02/19/2024 10:07:08 Viral gastroenteritis [id number] A08.4 Health Concerns Section Related Observation LastModified by Organization Detai ls LastModified Time None Recorded Concern Status LastModified by Organization Details LastModified Time None Recorded Advance Directives Directive None Recorded Payers Insurance Date Sequence Insurance Name Policy Number Policy Kumar Covered Member ID Kumar Member ID Guarantor Name 03/01/2024 1 [facility] [id number] Omayra Wylie [id number] Omayra Wylie 02/19/2024 1 [facility] [id number] Omayra Lilly Wylie [id number] Omayra Wylie 05/12/2022 [employer]-Medexpre ss Occ Med Generic (Move To Hold) [[id number]] Omayra Wylie Notes Date Note Type Note Provider Name and Address Organization Details Recorded Time 4 text/html COVID-19 SymptomsReported bypatient.COVID-19 Signs and Symptomsheadache same; vomiting or diarrhea same; fatigue same Severity:mild (cramping preceeding diarrhea episodes) Associated Symptoms:no sputum production; no wheezing;diarrhea;ana rosa sea;body aches SUDEEP Meyer [address] [place], [address], [place] - [facility] 02/19/2024 10:06:35 OBGyn Episode No OBEpisode recorded.
--- OUTSIDE RECORDS SUMMARY | 2024-12-20 15:56 | XMS_ITS | Clinical Summary ---
Author Organization [facility] Address [address] [place] [address] Care Team Providers Care Teller Head Name Role Phone Merissa López MD Primary Care Provider [phone] Allergies No known active allergies Medications Medication [...] 105 04/10/2020 1:08 PM EDT Temperature 37.5 C (99.5 F) 04/10/2020 1:08 PM EDT Respiratory Rate - - Oxygen Saturation - [...] (P ap Smear) 2018 Influenza Vaccine (#1) 2025 DTap / Tdap / Td (2 - Td or Tdap) 06/19/2028 019 Pneumococcal Vaccine Aged Out No long er eligible based on patient's age to complete this topic RSV Ped < 20 months Aged Out No longe r eligible based on patient's age to complete this topic Care Teams Teller Head Relationship Specialty Start Date End Date Merissa López MD PCP - General Internal Medicine 04/02/20
--- NOTE | 2024-12-20 15:58 | MHC.PC.OV ---
Vital Signs 12/20/24 16:10 Height 5 ft 7 in Weight 175 lb BMI 27.4 BP 100/72 Blood Pressure Location Rt brachial Position Sitting Respiration 16 Pulse 78 Pulse Source Pulse Oximeter Temp 99.0 F Temp Source Oral Pulse Oximetry (%) 97 Oxygen Delivery Method Room Air Intake Visit Reasons: Annual PE Intake Note: Pt is here today for her PE: last papsmear 05/28/24 Is last menstrual period known: Yes Last menstrual period: 12/12/24 Allergies No Known Allergies Allergy (Verified 12/20/24 16:33) Medication List - Last Reconciled 12/20/24 by Emerald Britt MD albuterol sulfate 90 mcg/actuation 2 puffs inhalation Q6H PRN buspirone 7.5 mg PO BID Tobacco use date assessed: 12/20/24 Dental Screening Dental Screen Date: 12/20/24 Did you have a dental visit in the last 12 months?: Yes Did you have a dental problem in the last 6 months where you did not have access to dental care?: No Was dental information given to patient?: Patient has dentist HPI Annual PE HPI Details 29-year-old lady with history anxiety disorder currently better controlled on buspirone 7.5 mg taken 1 tablet twice a day, here today for her physical exam. She is up-to-date with her cervical cancer screening, last done in 2023 with negative findings. She has been feeling well, with anxiety symptoms better controlled on higher dose of buspirone. She however would like to have an FMLA application completed She had recent fasting labs done which showed normal fasting glucose, lipids, liver enzymes, and thyroid stimulating hormone level. FORMERLY [facility], [facility] Medical History Vitamin D deficiency Generalized anxiety disorder Irritable bowel syndrome with constipation History of alopecia Right ovarian cyst Acne vulgaris Mild intermittent asthma Fibroadenoma of right breast (Unknown) Surgical History Hx of wisdom tooth extraction Family History Paternal Grandfather Colon cancer Maternal Grandmother Mesothelioma Maternal Uncle Substance use disorder Mental health disorder Alcoholism Brother Substance use disorder Alcoholism Maternal Grandmother Substance use disorder Mental health disorder Maternal Grandfather Substance use disorder Maternal Aunt Mental health disorder Breast cancer Social History Housing: Condominium Alcohol intake: never Patient Tobacco Use Status: Never used Tobacco e-Cigarette/Vaping Use: Never Used service: No Current occupational status: employed 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 1. Little interest or pleasure in doing things: not at all 2. Feeling down, depressed, or hopeless: not at all 3. Trouble falling or staying asleep, or sleeping too much: not at all 4. Feeling tired or having little energy: several days 5. Poor appetite or overeating: not at all 6. Feeling bad about yourself - or that you are a failure or have let yourself or your family down: not at all 7. Trouble concentrating on things, such as reading the newspaper or watching television: not at all 8. Moving or speaking so slowly that other people could have noticed. Or the opposite - being so fidgety or restless that you have been moving around a lot more than usual: not at all 9. Thoughts that you would be better off or of hurting yourself in some way: not at all Total score: 1 Depression Screening Interpretation: Negative Depression Screening Done: Yes 53422 - PHQ-9 Billing: Yes Source: Developed by Drs. Isauro Emanuel, Danika Bey, Corky Peterson and colleagues, with an educational jose from [employer]. Thrive Questionnaire Date Thrive assessed: 10/29/24 I am a: Patient What is your living situation today?: I have a steady place to live Within the past 12 months, did the food you bought not last and you didn't have the money to get more?: Never true Within the past 12 months, did you worry whether your food would run out before you got money to buy more?: Never true Do you have trouble paying for medicines?: No Do you have trouble getting transportation to medical appointments?: No Do you have trouble paying your heating and electricity bill?: No Do you have trouble taking care of your child, family member or friend?: No Do you have trouble with day-to-day activities such as bathing, preparing meals, shopping, managing finances, etc.?: No Are you currently unemployed and looking for a job?: No Are you interested in more education?: No Please select the resources that you would like help with: None Currently or been in a relationship where the following occur: No concerns reported THRIVE Score: 0 AUDIT C Alcohol Use Questionnaire (AUDIT-C) 1. How often do you have a drink containing alcohol?: Never 3. How often do you have six or more drinks on one occasion?: Never Total Score: 0 ENRIQUE-7 AMB Questionnaire ENRIQUE-7 Date ENRIQUE - 7 assessed: 12/20/24 Feeling nervous, anxious, or on edge: 1 = Several days Not being able to stop or control worryin = Not at all Worrying too much about different things: 1 = Several days Trouble relaxin = Not at all Being so restless that it is hard to sit still: 0 = Not at all Becoming easily annoyed or irritable: 0 = Not at all Feeling afraid as if something awful might happen: 0 = Not at all Total ENRIQUE-7 score (0-4 normal; 5-9 mild; 10-14 moderate; 15-21 severe): 2 Source: Developed by Drs. Isauro Emanuel, Danika Bey, Corky Peterson and colleagues, with an educational jose from [employer]. ENRIQUE-7 Assessment Billing ENRIQUE-7 Assessment Tool: ENRIQUE-7 Assessment 92563 Review of Systems Const Denies body aches, Denies fatigue, Denies fever(s), Denies headache(s) and Denies weakness Eyes Denies change in vision ENT Denies dizziness, Denies headache(s), Denies nasal congestion and Denies nasal discharge Card Denies chest pain, Denies lightheadedness, Denies palpitations and Denies dyspnea Resp Denies chest congestion, Denies cough, Denies dyspnea and Denies wheezing GI Denies abdominal pain, Denies change in bowel habits and Denies heartburn Denies hematuria, Denies urinary frequency, Denies dysuria and Denies urinary urgency Musc Reports no additional complaints Skin/Breast Denies breast pain, Denies breast mass, Denies lesions and Denies rash Neuro Denies dizziness, Denies headache(s) and Denies weakness Psych Reports as per HPI Endo Denies fatigue, Denies polydipsia, Denies polyuria and Denies palpitations Dl/Lymph Denies easy bruising Aller/Immun Denies seasonal rhinorrhea and Denies wheezing Physical exam (Primary Care) Vital Signs: Last Vital Signs Temp 99.0 F 12/20/24 16:10 Pulse 78 12/20/24 16:10 Resp 16 12/20/24 16:10 BP 100/72 12/20/24 16:10 Pulse Ox 97 12/20/24 16:10 Oxygen Delivery Method Room Air 12/20/24 16:10 BMI result Body Mass Index 27.4 Tobacco/Smoking Status: Tobacco use Status Tobacco use date assessed 12/20/24 12/20/24 16:11 Patient Tobacco Use Status Never used Tobacco 12/20/24 16:00 e-Cigarette/Vaping Use Never Used 12/20/24 16:00 Depression Screening Interpretation: Negative Thrive Assessment: Date of Thrive Assessment Date Thrive assessed 10/29/24 12/20/24 16:00 Currently or been in a relationship where the following occur: No concerns reported Const General: no acute distress and alert Orientation/consciousness: patient oriented x3 HENMT Head: Yes normocephalic Ears: external ears normal, TM's normal bilaterally and EAC's normal General nose exam: Normal external nose present Face and sinus: Yes face symmetric Mouth: Normal oral and palatal mucosa present and moist mucous membranes Eyes General: appearance normal, both eyes and all related structures Neck Neck: Yes full ROM, Yes no lymphadenopathy and Yes supple Thyroid: Thyroid normal Chest Breast/axilla palpation: normal palpation of the breasts Resp Effort & Inspection: normal respiratory effort and able to speak in complete sentences Auscultation: clear to auscultation bilaterally Cardio Rate: regular rate Rhythm: regular rhythm Heart sounds: S1 normal heart sound present and S2 normal heart sound present GI Palpation (GI): Soft to palpation, nontender, no guarding and no masses Auscultation: normal bowel sounds General: Yes no CVA tenderness Back/Spine/Pelvis Back: no CVA tenderness and No back tenderness Skin General skin exam: no rashes or lesions noted Neuro General: patient oriented x3, gait normal, moves all extremities, Normal light touch and pain sensation, no focal motor deficits and CN's II-XI intact bilaterally Cognition (Neuro): normal cognition Gait exam (Neuro): Normal gait present Motor exam (neuro): 5/5 motor strength present throughout Extrem General: Yes normal to inspection, Yes full ROM, Yes no joint enlargement, Yes no pedal edema and Yes normal gait Psych Appearance: grossly normal and well kempt Mental Status: mental status grossly normal Speech and movement: Normal speech and movement present Affect: normal affect Thought process: Normal thought process present Thought content: Normal thought content present Results Reviewed Results Reviewed: Name: Omayra Wylie Age/Sex: 29/F : 1995 Unit#: [id number] Attend Dr: Emerald Britt MD Re12/19/24 Status: DEP REF Location: [facility] Disch: SPEC : [id number] AIMEE: 12/19/24 STATUS: COMP REQ : [id number] RECD: 12/19/24-[address]: Emerald Britt MD COMP: 12/19/24 ENTERED: 12/19/[address]: ORDERED: Glu Fasting, AST, ALT, Lipid Panel, Vitamin D 25-OH, TSH Rflx Test Result Flag Reference FBS 92 60-99 mg/dL AST (GOT) 23 5-31 U/L ALT (GPT) 21 0-31 U/L Triglyceride 45 <150 mg/dL Desirable Triglyceride: less than 150 mg/dL Borderline High Triglyceride 150-199 mg/dL High Triglyceride: 200-499 mg/dL Very High Triglyceride: greater than or equal to 5OO mg/dL Cholesterol 175 <200 mg/dL Desirable Cholesterol: less than 200 mg/dL Borderline High Cholesterol: 200-239 mg/dL High Cholesterol: greater than 239 mg/dL LDL Calculated 88 <100 mg/dL Desirable LDL: less than 100 mg/dL Near Optimal/Above Optimal LDL: 110-129 mg/dL Borderline High LDL: 130-159 mg/dL High LDL: 160-189 mg/dL Very High LDL: greater than or equal to 190 mg/dL HDL 78 >40 mg/dL Desirable HDL: greater than 40 mg/dL Note: This HDL assay may give artificially low results in patients with liver disease. Vitamin D 25-OH 42.7 >30 ng/mL Health Based Reference Values* < 20 ng/mL Deficient 20-30 ng/mL Insufficient > 30 ng/mL Sufficient *[place] CURRY. N Engl J Med. 2007;357:266-280 There is no well-established upper level of normal vitamin D levels. Some laboratories use 50 ng/mL as an upper limit of normal. However, toxicity is patient-dependent and may occur at any level. Careful correlation with the patient's presentation is necessary and, if there is concern for vitamin D toxicity, treatment should be considered irrespective of the serum level. Care must be taken in interpreting Vitamin D results from different laboratories and methodologies. Published data demonstrated that results from patients undergoing hemodialysis may show a negative bias when tested with various automated 25-OH vitamin D assays when compared to LC-MS/MS. When testing samples from patients whose predominant form of Vitamin D is Vitamin D2, such as patients receiving Vitamin D2 supplementation, results that are subtherapeutic should be confirmed with another method such as LC-MS/MS. TSH 1.57 0.32-4.0 uIU/mL Coding Level of Care Code Est Pt Prev Care 18-39y(72429) Diagnoses Annual visit for general adult medical examination with abnormal findings Z00. Generalized anxiety disorder F41.1 Mild intermittent asthma without complication J45.20 Asthma complication type: uncomplicated Additional Codes PHQ-9 - 52246 - PHQ-9 Billing: Yes ([id number]) ENRIQUE-7 Assessment Billing - ENRIQUE-7 Assessment Tool: ENRIQUE-7 Assessment 37362 ([id number]) Assessment & Plan Assessment & Plan (1) Annual visit for general adult medical examination with abnormal findings: Code(s): Z00.01 - Encounter for general adult medical examination with abnormal findings Plan: Reviewed recent fasting lab results with patient.. Recommended dental visit every 6 months and regular eye exams, at least every 2 years. Take adequate calcium in diet and vitamin-D 3 at 2000 IU per cap once a day, in addition to weight-bearing exercises to help maintain good muscle tone and weight control. Instructed to do self-breast exam, and recommended to get yearly mammogram, starting at age 40. Goes to [facility] for her routine Pap and pelvic exam, currently up-to-date. Up-to-date with her Tdap, reminded to get yearly flu shots (2) Generalized anxiety disorder: Code(s): F41.1 - Generalized anxiety disorder Category: Medical Plan: Continue buspirone 7.5 mg 1 tablet twice a day. FMLA application completed and given back to patient (3) Mild intermittent asthma: Code(s): J45.20 - Mild intermittent asthma, uncomplicated Category: Medical Qualifiers: Asthma complication type: uncomplicated Qualified Code(s): J45.20 - Mild intermittent asthma, uncomplicated Plan: Uses only albuterol inhaler as needed for acute episodes of bronchospasm and wheezing.
[2024-12-20 16:10] VITALS: BP 100/72; PULSE 78; RESP 16; TEMP 37.2; O2SAT 97; BMI 27.4
== END 2024-12-20 16:51 | disposition home or self-care (01) ==
LOC: HO.HMCC 15:54
PROVIDERS: PCP Internal Medicine; Visit Provider Internal Medicine
DX: Z00.01 Encounter for general adult medical examination with abnormal findings (principal); F41.1 Generalized anxiety disorder; J45.20 Mild intermittent asthma, uncomplicated

== ENCOUNTER → 2024-12-20 15:53 | Outpatient (BNVA) | payer OTHER, SELFPAY | PROVIDERS: PCP Internal Medicine; Visit Provider Internal Medicine | DX: Z00.01 Encounter for general adult medical examination with abnormal findings (principal); F41.1 Generalized anxiety disorder; J45.20 Mild intermittent asthma, uncomplicated | CPT/HCPCS: 96127 ==

== ENCOUNTER 2025-03-06 07:26 | Outpatient (REF) | payer OTHER, SELFPAY ==
[2025-03-06 12:10] LABS: Chlamydia pneumoniae PCR Not Detected (Not Detect.); Coronavirus 229E PCR Not Detected (Not Detect.); Coronavirus HKU1 PCR Not Detected (Not Detect.); Coronavirus NL63 PCR Not Detected (Not Detect.); Coronavirus OC43 PCR Not Detected (Not Detect.); RSV PCR Not Detected (Not Detect.); Rhino/Enterovirus PCR Not Detected (Not Detect.)
[2025-03-06 12:40] LABS: Influenza A H1 PCR Not Detected (Not Detect.); Influenza A H1-2009 PCR Not Detected (Not Detect.); Influenza A H3 PCR Not Detected (Not Detect.); SARS-CoV-2 PCR Not Detected (Not Detect.)
== END 2025-03-06 07:27 | disposition home or self-care (01) ==
LOC: HO.LNP 07:26
PROVIDERS: PCP Internal Medicine; Visit Provider Physician Assistant Medical
DX: R09.89 Other specified symptoms and signs involving the circulatory and respiratory systems (principal); J06.9 Acute upper respiratory infection, unspecified; R05.9 Cough, unspecified; R09.81 Nasal congestion
CPT/HCPCS: 87633

== ENCOUNTER 2025-03-06 07:26 | Outpatient (AMB) | payer OTHER, SELFPAY ==
[2025-03-06 07:28] VITALS: BP 100/60; PULSE 105; TEMP 36.8; O2SAT 95; BMI 27.9
--- NOTE | 2025-03-06 07:28 | AM.OFFWIN_ITS ---
Intake Vital Signs 03/06/25 07:28 Height 5 ft 7 in Weight 178 lb BMI 27.9 BP 100/60 Blood Pressure Location Lt brachial Position Sitting Pulse 105 H Pulse Source Pulse Oximeter Temp 98.2 F Temp Source Oral Pulse Oximetry (%) 95 Intake Visit Reasons: possible respiratory infection Intake Note: Pt is here today c/o nasal and chest congestion plus coughing x3days Patient Tobacco Use Status: Never used Tobacco Allergies No Known Allergies Allergy (Verified 03/06/25 07:30) HPI HPI Comments History of Present Illness Details History - The patient is a 30-year-old female pr esenting with a cough and congestion. - She reports coughing up yellow mucus a nd experiencing congestion, which worsened over the past few days. - Symptoms began with seasonal changes, intensifying from Tuesday to Tuesday. - The patient has a history of asthma, m anaged with albuterol inhaler, which she used this morning due to excessive coughing. - She is currently participating in a ial study drug for alopecia, which restricts her from taking allergy medications. - She denies fever, chills, chest pain, SOB, abd pain, or n/v/d. - She has no sick contacts. - She is not a smoker. Physical Exam General: Cooperative, healthy appearing, comfortable and no acute distress Orientation/consciousness: Patient oriented x3 Limitations: No limitations Head: Normal to inspection Ears: Hearing grossly normal bilaterally, external ears normal and TM's normal bilaterally Nose: Normal external nose present, normal nares present, and no nasal discharge present. Face and sinus: Sinuses nontender to palpation. Mouth: Normal oral and palatal mucosa present and moist mucous membranes noted. Throat: Tonsils normal. Uvula is midline. Posterior oropharynx with erythema and no exudates. Eyes: Appearance normal, both eyes and all related structures Neck: Normal visual inspection, full ROM. No lymphadenopathy noted. Respiratory: Clear to auscultation bilaterally. Normal respiratory effort, able to speak in complete sentences. No respiratory distress, not tachypneic, no tripod positioning and no use of accessory muscles. Cardiovascular: Regular rate and rhythm. Normal S1 and S2 Skin: No rashes or lesions noted Patient was informed and verbally consented to the use of an ambient scribe for clinic note documentation during this visit [facility] Medical History Vitamin D deficiency Generalized anxiety disorder Irritable bowel syndrome with constipation History of alopecia Right ovarian cyst Acne vulgaris Mild intermittent asthma Fibroadenoma of right breast (Unknown) Surgical History Hx of wisdom tooth extraction Family History Paternal Grandfather Colon cancer Maternal Grandmother Mesothelioma Maternal Uncle Substance use disorder Mental health disorder Alcoholism Brother Substance use disorder Alcoholism Maternal Grandmother Substance use disorder Mental health disorder Maternal Grandfather Substance use disorder Maternal Aunt Mental health disorder Breast cancer Social History Housing: Condominium Alcohol intake: never Patient Tobacco Use Status: Never used Tobacco e-Cigarette/Vaping Use: Never Used service: No Current occupational status: employed 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 Sexual orientation: Straight/Heterosexual Gender identity: Female Cognitive needs: No Hearing needs: No Vision needs: No Female Reproductive History Menstrual Age of Menarche: 13 Review of Systems Const All systems reviewed & are unremarkable except as noted in HPI and below Physical Exam Vital Signs: Last Vital Signs Temp 98.2 F 03/06/25 07:28 Pulse 105 H 03/06/25 07:28 BP 100/60 03/06/25 07:28 Pulse Ox 95 03/06/25 07:28 BMI result Body Mass Index 27.9 Assessment & Plan Assessment & Plan (1) URI with cough and congestion: Code(s): J06.9 - Acute upper respiratory infection, unspecified Plan Most likely URI vs covid vs rsv vs flu vs viral illness plan - Refill albuterol inhaler due to low supply. - Conduct respiratory panel to test for viruses including COVID-19, influenza, and RSV. - Prescribe Tessalon Perles for cough management. - tylenol or motrin as needed - will give a work note - follow up with PCP Medications: New benzonatate 100 mg PO bid-tid PRN 21 caps 0RF Cough 7 days albuterol sulfate 90 mcg/actuation 2 puffs inhalation Q6H PRN 8.5 grams 0RF shortness of breath or wheezing or cough Coding Level of Care Code Est Pt Level 3 (01216) Diagnoses URI with cough and congestion J06.9
--- OUTSIDE RECORDS SUMMARY | 2025-03-06 07:29 | XMS_ITS | Clinical Summary ---
Author Organization [facility] Address [address] [place] [address] Care Team Providers Care Denier Control Operator Name Role Phone Unavailable Primary Care Provider Unavailabl e Medications * This document contains information received from the source organization and may not represent a complete record from that organization. Hospital, Clinic, or Other Facility Administered Medication Ordered Dose Route Frequency Start Date End Date Status [facility] [id number]-[id number] 12mg, 8mg, 4mg or placebo tablet [...] Cervical cancer screening 10/02/2021 10/02/2018 Influenza vaccine 01/11/2025 Covid-19 vaccine series ( season) 2025 Tetanus adult (Td q 10,TDAP once) 06/19/2028 019 RSV Immunization (1 - 1-dose 75+ series) 01/24/2072 Meningococcal B Vaccine Aged Out No l onger eligible based on patient's age to complete this topic Meningococcal Vaccine Aged Out No sidra chelsey eligible based on patient's age to complete this topic Pneumococcal Vaccine (2 - 49 years) Aged Out No longer eligible b ased on patient's age to complete this topic
--- OUTSIDE RECORDS SUMMARY | 2025-03-06 07:29 | XMS_ITS | Clinical Summary ---
Author Organization [facility] it Address [address] [place] [address] Care Team Providers Care Thermal Molder Name Role Phone Merissa López MD Primary Care Provider [phone] Surgical History Surgery Date Site/Laterality Comments WISDOM [...] Cancer Screening: P ap Smear 10/02/2021 10/02/2018 HIV Screening 05/16/2022 Hepatitis C Screening 05/16/2022 Social Influencers of Health Screening 05/16/2022 Depression Screening 06/13/2024 COVID-19 Vaccine (1 - 2023-2 5 season) 2025 Influenza Vaccine (#1) 2025 DTaP,Tdap,and Td Vaccines [...] RESULTING AGENCY - 10/04/2018 2:55 PM EDT [id number] THINPREP PAP, IMAGED: NEGATIVE FOR SQUAMOUS INTRAEPITHELIAL [...] Recently Relevant to Health Maintenance Care Teams Thermal Molder Relationship Specialty Start Date End Date Merissa López MD PCP - General Internal Medicine 04/02/20
--- OUTSIDE RECORDS SUMMARY | 2025-03-06 07:29 | XMS_ITS | Clinical Summary ---
Author Organization [facility] Address [address] [place] [address] Care Team Providers Care Ticker Maintainer Name Role Phone Merissa López MD Primary Care Provider [phone] Allergies No known active allergies Medications Medication [...] age to complete this topic Care Teams Ticker Maintainer Relationship Specialty Start Date End Date Merissa López MD PCP - General Internal Medicine 04/02/20
== END 2025-03-06 08:33 | disposition home or self-care (01) ==
PROVIDERS: PCP Internal Medicine; Visit Provider Physician Assistant Medical
DX: J06.9 Acute upper respiratory infection, unspecified (principal)

== ENCOUNTER 2025-03-28 08:06 | Outpatient (AMB) | payer OTHER, SELFPAY ==
--- OUTSIDE RECORDS SUMMARY | 2025-03-28 08:09 | XMS_ITS | Clinical Summary ---
Author Organization [facility] Address [address] [place] [address] Care Team Providers Care Helper Electrical Name Role Phone Merissa López MD Primary Care Provider [phone] Allergies No known active allergies Medications Medication [...] age to complete this topic Care Teams Helper Electrical Relationship Specialty Start Date End Date Merissa López MD PCP - General Internal Medicine 04/02/20
--- OUTSIDE RECORDS SUMMARY | 2025-03-28 08:10 | XMS_ITS | Clinical Summary ---
Author Organization [facility] it Address [address] [place] [address] Care Team Providers Care Instructional Support Assistant Name Role Phone Merissa López MD Primary Care Provider [phone] Surgical History Surgery Date Site/Laterality Comments WISDOM [...] 05/16/2022 Social Influencers of Health Screening 05/16/2022 HPV Vaccines (1 - 3-dose SCD M series) 01/24/2024 Depression Screening 06/13/2024 COVID-19 Vaccine (1 - 2023-2 5 season) 2025 Influenza Vaccine (#1) 2025 DTaP,Tdap,and Td Vaccines (2 - Td or Tdap) 06/19/2028 06/19/2018 RSV Immunization Adult Patie nts (1 - 1-dose 75+ series) 01/24/2072 HIB Vaccines Aged Out No longer eligi [...] RESULTING AGENCY - 10/04/2018 2:55 PM EDT [id number] THINPREP PAP, IMAGED: NEGATIVE FOR SQUAMOUS INTRAEPITHELIAL LESION AND MALIGNANCY . MIRANDA VIDALES(ASCP) (CASE ELECTRONICALLY SIGNED 10 04 2018) ADEQUACY: SATISFACTORY ENDOCERVICAL/TRANSFORMATION ZONE COMPONENT PRESENT. SOURCE: THINPREP PAP HPV IF ASCUS, CERVICAL, IMAGED CLINICAL INFORMATION: HPV IF DIAGNOSIS OF ASCUS. Z12.4 Balbir Ellison [facility] CYTOLOGY ORDERA BLES Final Result HISTORICAL TESTING LAB RESULTING AGENCY from Last 3 Months or Most Recently Relevant to Health Maintenance Care Teams Instructional Support Assistant Relationship Specialty Start Date End Date Merissa López MD PCP - General Internal Medicine 04/02/20
--- OUTSIDE RECORDS SUMMARY | 2025-03-28 08:10 | XMS_ITS | Clinical Summary ---
Author Organization [facility] Address [address] [place] [address] Care Team Providers Care Installation Engineer Name Role Phone Unavailable Primary Care Provider Unavailabl e Medications * This document contains information received from the source organization and may not represent a complete record from that organization. Hospital, Clinic, or Other Facility Administered Medication Ordered Dose Route Frequency Start Date End Date Status [facility] [id number]-[id number] 12mg, 8mg, 4mg or placebo tablet [...]
[2025-03-28 08:25] VITALS: BP 102/70; PULSE 90; O2SAT 97; BMI 28.2
--- NOTE | 2025-03-28 08:25 | MHC.OFFWIV ---
Intake Vital Signs 03/28/25 08:25 Height 5 ft 7 in Weight 180 lb BMI 28.2 BP 102/70 Blood Pressure Location Lt brachial Position Sitting Pulse 90 Pulse Source Pulse Oximeter Pulse Oximetry (%) 97 Intake Visit Reasons: ep cat bite left leg right foot Patient Tobacco Use Status: Never used Tobacco Allergies No Known Allergies Allergy (Verified 03/28/25 08:27) Medication List - Last Reconciled 03/28/25 by Flora Albarado NP albuterol sulfate 90 mcg/actuation 2 puffs inhalation Q6H PRN amoxicillin-pot clavulanate 875-125 mg 1 tab PO BID 5 days buspirone 7.5 mg PO BID deuruxolitinib (Leqselvi) 8 mg PO BID Do you need a note to return to daycare/school/sports/work: Yes HPI HPI Comments History of Present Illness Details 30 y/o Female patient who presents to the walk in clinic with c/o Cat bite. Pt works at [employer] and one of the Cats bit her this morning. Reports pain on left foot (Anterior) and Right knee. The Cat is fully vaccinated and negative for Rabies. She is also uptodate with Tdap shot. Denies Fevers, chills, nausea or vomiting. She does report some pain around the puncture almodovar. [facility] Medical History (Updated 03/28/25 @ 08:55 by Flora Albarado NP) Cat bite Vitamin D deficiency Generalized anxiety disorder Irritable bowel syndrome with constipation History of alopecia Right ovarian cyst Acne vulgaris Mild intermittent asthma Fibroadenoma of right breast (Unknown) Surgical History Hx of wisdom tooth extraction Family History Paternal Grandfather Colon cancer Maternal Grandmother Mesothelioma Maternal Uncle Substance use disorder Mental health disorder Alcoholism Brother Substance use disorder Alcoholism Maternal Grandmother Substance use disorder Mental health disorder Maternal Grandfather Substance use disorder Maternal Aunt Mental health disorder Breast cancer Social History Housing: Condominium Alcohol intake: never Patient Tobacco Use Status: Never used Tobacco e-Cigarette/Vaping Use: Never Used service: No Current occupational status: employed 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 Sexual orientation: Straight/Heterosexual Gender identity: Female Cognitive needs: No Hearing needs: No Vision needs: No Female Reproductive History Menstrual Age of Menarche: 13 Review of Systems Const All systems reviewed & are unremarkable except as noted in HPI and below Physical Exam Vital Signs: Last Vital Signs Pulse 90 03/28/25 08:25 BP 102/70 03/28/25 08:25 Pulse Ox 97 03/28/25 08:25 BMI result Body Mass Index 28.2 Const General: no acute distress Nutritional Appearance: well nourished Orientation/consciousness: patient oriented x3 Skin General skin exam: erythema Neuro General: patient oriented x3, gait normal and moves all extremities Extrem Knee images:  1. 2 small puncture almodovar, erythematous TTP, mild bleeding. Ankle/foot/toe images:  1. 2 small teeth almodovar (puncture almodovar) - erythematous. Psych Speech and movement: Normal speech and movement present Assessment & Plan Assessment & Plan (1) Cat bite: Code(s): W55.XA - Bitten by cat, initial encounter Qualifiers: Encounter type: initial encounter Qualified Code(s): W55.XA - Bitten by cat, initial encounter Plan: Cleaned the puncture wounds with Betadine solution, Applied small bandage. Ordered Amoxicillin for 5 days. May take Acetaminophen for pain relief. Medications: New amoxicillin-pot clavulanate 875-125 mg 1 tab PO BID 10 tabs 0RF 5 days W55.XA - Bitten by cat, initial encounter Coding Level of Care Code Est Pt Level 4 (93957) Diagnoses Cat bite, initial encounter W55.XA Encounter type: initial encounter Time Spent (min) 20
== END 2025-03-28 09:04 | disposition home or self-care (01) ==
PROVIDERS: PCP Internal Medicine; Visit Provider Nurse Practitioner Family
DX: S81.031A Puncture wound without foreign body, right knee, initial encounter (principal); S91.332A Puncture wound without foreign body, left foot, initial encounter; W55.01XA Bitten by cat, initial encounter

== ENCOUNTER → 2025-03-28 08:06 | Outpatient (BNVA) | payer OTHER, SELFPAY | PROVIDERS: PCP Internal Medicine; Visit Provider Nurse Practitioner Family | DX: S81.031A Puncture wound without foreign body, right knee, initial encounter (principal); S91.332A Puncture wound without foreign body, left foot, initial encounter; W55.01XA Bitten by cat, initial encounter; Y93.9 Activity, unspecified; Y92.9 Unspecified place or not applicable; Y99.9 Unspecified external cause status | CPT/HCPCS: 99212 ==

== ENCOUNTER 2025-05-07 10:01 | Outpatient (AMB) | payer OTHER, SELFPAY ==
--- NOTE | 2025-05-07 10:01 | A.OFFVIS_ITS ---
Vital Signs 3 05/07/25 10:04 Height 5 ft 7 in Weight 180 lb BMI 28.2 BP 108/72 Intake Visit Reasons: Breast complaints Intake Note: * Patient complains of right breast stabbing pain, on and off, positional or accidently hits it. Hx of Fibroidadenoma of the right breast in 2020. Compliance Review Officer: Compliance Review Officer Present (Amy Bullock MA) Accompanied by: Self / Same As Patient Allergies No Known Allergies Allergy (Verified 05/07/25 10:04) Medication List - Last Reconciled 05/07/25 by Danielle Torres CNM albuterol sulfate 90 mcg/actuation 2 puffs inhalation Q6H PRN buspirone 7.5 mg PO BID deuruxolitinib (Leqselvi) 8 mg PO BID Is last menstrual period known: Yes Last menstrual period: 04/27/25 Post menopausal: No Patient : No HPI HPI Breast complaints: Details: pt presents today with concerns of right breast pain worsening over the past few days. + hx fibroadenoma dx in 2020 she does admit to daily caffeine/ energy drink 140 mg caffeine ( does not always complete the drink) denies injury denies nipple discharge Location: Right breast, near old surgical biopsy scar 1 o'clock region Duration: waxes and wanes, lasting from seconds to minutes, not cyclical Characteristics of symptom or complaint: stabbing/burning sensation Aggravating or associated factors: none Relieving factors: has not tried any otc relief measures [facility] Medical History (Updated 05/07/25 @ 10:27 by Danielle Torres CNM) Complex cyst of left ovary Cat bite Vitamin D deficiency Generalized anxiety disorder Irritable bowel syndrome with constipation History of alopecia Right ovarian cyst Acne vulgaris Mild intermittent asthma Fibroadenoma of right breast (Unknown) Surgical History Hx of wisdom tooth extraction Family History Paternal Grandfather Colon cancer Maternal Grandmother Mesothelioma Maternal Uncle Substance use disorder Mental health disorder Alcoholism Brother Substance use disorder Alcoholism Maternal Grandmother Substance use disorder Mental health disorder Maternal Grandfather Substance use disorder Maternal Aunt Mental health disorder Breast cancer Social History (Reviewed 05/07/25 @ 10:03 by VINI Vitale Housing: Condominium Alcohol intake: never Patient Tobacco Use Status: Never used Tobacco e-Cigarette/Vaping Use: Never Used Patient : No service: No Current occupational status: employed 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 Sexual orientation: Straight/Heterosexual Gender identity: Female Cognitive needs: No Hearing needs: No Vision needs: No Female Reproductive History Menstrual Age of Menarche: 13 Duration of menses: 6-7 days Date of last menstrual period: 04/27/25 control method: permanent sterilization Permanent Sterilization: Vasectomy ( vasectomy) Review of Systems Const Reports as per HPI Card Reports no additional complaints Resp Reports no additional complaints Reports no additional complaints Skin/Breast Reports as per HPI Physical Exam Vital Signs: Last Vital Signs BP 108/72 05/07/25 10:04 BMI result Body Mass Index 28.2 Const General: cooperative, no acute distress and alert HEENT Head: Yes normocephalic Chest Breast/axilla inspection: normal inspection of the breasts (see below) Breast/axilla palpation: normal palpation of the breasts (no palpable masses) and no axillary lymphadenopathy Chest/axillae images: 2 1. surgical scar, s/p biopsy and localized area of discomfort Resp Effort & Inspection: normal respiratory effort and able to speak in complete sentences Results Reviewed Results Reviewed: 01/2023 Breast Ultrasound TECHNIQUE: Ultrasound of the right breast is performed with real-time islas scale imaging and color Doppler. Special attention was paid to the area of mastodynia as indicated by the patient. FINDINGS: There is no focal suspicious finding. There is no solid mass, cystic abnormality, architectural abnormality, duct ectasia, or edema in the soft tissue planes. Only extremely dense normal-appearing fibrous breast tissue is identified. Assessment & Plan Assessment & Plan (1) Breast pain, right: Code(s): N64.4 - Mastodynia Plan Pt is counseled on the benign nature of breast fibroadenoma Comfort measures including NSAIDs Enc decrease cafffeine Follow up breast sono w/ surgical consult if needed pending result Orders: Orders 2 MM diagnostic mammo unilat RT 1 Week N64.4 - Mastodynia US breast RT limited 1 Week N64.4 - Mastodynia Coding Level of Care Code Est Pt Level 3 (38193) Diagnoses Breast pain, right N64.4
[2025-05-07 10:04] VITALS: BP 108/72; BMI 28.2
--- OUTSIDE RECORDS SUMMARY | 2025-05-07 12:02 | XMS_ITS | Clinical Summary ---
Author Organization [facility] Address [address] [place] [address] Care Team Providers Care Forge Hand Name Role Phone Merissa López MD Primary Care Provider [phone] Allergies No known active allergies Medications Medication [...] age to complete this topic Care Teams Forge Hand Relationship Specialty Start Date End Date Mersisa López MD PCP - General Internal Medicine 04/02/20
--- OUTSIDE RECORDS SUMMARY | 2025-05-07 12:02 | XMS_ITS | Clinical Summary ---
Author Organization [facility] Address [address] [place] [address] Care Team Providers Care Pad Making Machine Operator Name Role Phone Unavailable Primary Care Provider Unavailabl e Medications * This document contains information received from the source organization and may not represent a complete record from that organization. Hospital, Clinic, or Other Facility Administered Medication Ordered Dose Route Frequency Start Date End Date Status [facility] [id number]-[id number] 12mg, 8mg, 4mg or placebo tablet [...]
--- OUTSIDE RECORDS SUMMARY | 2025-05-07 12:02 | XMS_ITS | Clinical Summary ---
Author Organization [facility] it Address [address] [place] [address] Care Team Providers Care Invoice Classification Clerk Name Role Phone Merissa López MD Primary Care Provider [phone] Surgical History Surgery Date Site/Laterality Comments WISDOM [...] of 3 - 19+ 3-dose series) 01/24/2016 Cervical Cancer Screening: P ap Smear 10/02/2021 10/02/2018 HPV Vaccines (1 - 3-dose SCD M series) 01/24/2024 Depression Screening 06/13/2024 COVID-19 Vaccine (2024-2 6 season) 2025 Influenza Vaccine (#1) 2025 DTaP,Tdap,and [...] patient's age to complete this topic Pneumococcal Vaccine: Pediat rics (0 to 5 Years) and At-Risk Patients (6 to 49 Years) Aged Out No longer eligi ble based [...] RESULTING AGENCY - 10/04/2018 2:55 PM EDT [id number] THINPREP PAP, IMAGED: NEGATIVE FOR SQUAMOUS INTRAEPITHELIAL LESION AND MALIGNANCY . MIRANDA VIDALES(ASCP) (CASE ELECTRONICALLY SIGNED 10 04 2018) ADEQUACY: SATISFACTORY ENDOCERVICAL/TRANSFORMATION ZONE COMPONENT PRESENT. SOURCE: THINPREP PAP HPV IF ASCUS, CERVICAL, IMAGED CLINICAL INFORMATION: HPV IF DIAGNOSIS OF ASCUS. Z12.4 us Balbir Ellison CN LAB CYTOLOGY ORDERA BLES Final Result HISTORICAL TESTING LAB RESULTING AGENCY from Last 3 Months or Most Recently Relevant to Health Maintenance Care Teams Invoice Classification Clerk Relationship Specialty Start Date End Date O'Bermeo, Merissa M, MD PCP - General Internal Medicine 04/02/20
== END 2025-05-07 10:38 | disposition home or self-care (01) ==
LOC: HO.HWSM 10:01
PROVIDERS: PCP Internal Medicine; Visit Provider Advanced Practice Midwife
DX: N64.4 Mastodynia (principal)
CPT/HCPCS: 99213

== ENCOUNTER 2025-05-15 08:18 | Outpatient (REF) | payer OTHER, SELFPAY ==
--- NOTE | ~2025-05-15 | US_ITS ---
EXAMINATION: US DIAGNOSTIC ULTRASOUND BREAST, RIGHT CLINICAL INFORMATION: Right breast pain. Patient had a right breast surgery for a benign fibroadenoma.. COMPARISON: Comparison is made with relevant prior imaging. TECHNIQUE: Ultrasound of the breast is performed with real-time islas scale imaging and color Doppler. FINDINGS: Targeted color Doppler ultrasound scanning in the right breast from 11-2 o'clock area of patient's pain demonstrates an identical simple to minimally complicated cyst at 1:00 4 cm from the nipple measuring 4 x 4 x 2 mm. Otherwise there is normal fibronodular breast tissue. Results are discussed with the patient at time of visit. US/US breast RT limited IMPRESSION: Incidental simple to minimally complicated cyst in the right breast 1:00 4 cm from the nipple. Otherwise no sonographic abnormal finding to account for the patient's right breast pain. Recommend clinical evaluation follow-up. ASSESSMENT: BI-RADS 2: Benign RECOMMENDATION: Recommend clinical evaluation and followup Electronically signed by: Maria Del Carmen Guerra DO 05/15/2025 10:03 AM TACHO
--- OUTSIDE RECORDS SUMMARY | 2025-05-15 08:27 | XMS_ITS | Clinical Summary ---
Author Organization [facility] it Address [address] [place] [address] Care Team Providers Care Secondary Market Manager Name Role Phone Merissa López MD Primary Care Provider [phone] Surgical History Surgery Date Site/Laterality Comments WISDOM [...] RESULTING AGENCY - 10/04/2018 2:55 PM EDT [id number] THINPREP PAP, IMAGED: NEGATIVE FOR SQUAMOUS INTRAEPITHELIAL [...] Recently Relevant to Health Maintenance Care Teams Secondary Market Manager Relationship Specialty Start Date End Date O'Bermeo, Merissa M, MD PCP - General Internal Medicine 04/02/20
--- OUTSIDE RECORDS SUMMARY | 2025-05-15 08:27 | XMS_ITS | Clinical Summary ---
Author Organization [facility] Address [address] [place] [address] Care Team Providers Care Outside Sales Engineer Name Role Phone Unavailable Primary Care Provider Unavailabl e Medications * This document contains information received from the source organization and may not represent a complete record from that organization. Hospital, Clinic, or Other Facility Administered Medication Ordered Dose Route Frequency Start Date End Date Status [facility] [id number]-[id number] 12mg, 8mg, 4mg or placebo tablet [...]
--- OUTSIDE RECORDS SUMMARY | 2025-05-15 08:27 | XMS_ITS | Clinical Summary ---
Author Organization [facility] Address [address] [place] [address] Care Team Providers Care Director Of Email Marketing Name Role Phone Merissa López MD Primary Care Provider [phone] Allergies No known active allergies Medications Medication [...] age to complete this topic Care Teams Director Of Email Marketing Relationship Specialty Start Date End Date Merissa López MD PCP - General Internal Medicine 04/02/20
== END 2025-05-15 08:19 | disposition home or self-care (01) ==
LOC: HO.MAMMO 08:18
PROVIDERS: Visit Provider Internal Medicine
DX: N64.4 Mastodynia (principal)
CPT/HCPCS: 76642

== ENCOUNTER → 2025-05-15 08:30 | Outpatient (BNV) | payer OTHER, SELFPAY | PROVIDERS: Visit Provider Internal Medicine | DX: N64.4 Mastodynia (principal) | CPT/HCPCS: 76642 ==

== ENCOUNTER 2025-06-11 08:56 | Outpatient (REF) | payer OTHER, SELFPAY ==
--- OUTSIDE RECORDS SUMMARY | 2025-06-11 11:53 | XMS_ITS | Data Portability ---
Author Organization [facility], [address] Address [address] [place] [address] Assessment No assessment recorded. Plan of Treatment Reminders Order Date Submit Date Provider Last Modified By Organization Details Last Modified Time Details Appointments None recorded. Lab SARS CoV 2 (COVID-19) Ag, QL, IA, upper respiratory specimen 2023 024 [email or web address], [address] [place], [address], 10:05:25 Referral None recorded. Procedures None recorded. Surgeries None recorded. Imaging None recorded. Medication Orders None recorded. Patient TargetsNo targets recorded. Patient Instructions Encounter Date Encounter Id Patient Instructions Last Modified By Organization Details Last Modified Time 02/19/2024 [id number] as we discussed most cases of diarrhea [...] Available [address], [place], [address], 02/19/2024 09:24:00 02/19/2002/19/2024 SARS CoV 2 (COVI D-19) Ag, QL, IA, upper respi rator y speci men Unknown Analyte yes Not Available [id number] [place], [address], 02/19/2024 09:24:00 Result Notes None recorded. Medical [...] mass index (BMI) Body weight Oxygen saturation Heart rate Body temperature Systolic And Diastolic Provider Name and Address Organization Details Last Updated DateTime 4 170.18 cm 26.6 kg/m2 68615.7 g 99 % 88 /min 98.1 [degF] 115/69 mm[Hg] Uyen Peterson PA - [facility] 4 09:18:39 Social History Question Answer Notes LastModified by [employer] Details LastModified Time Tobacco Smoking Status Never Smoker Uyen fernandez PA - [facility] 02/19/2024 09:22:44 Which Illicit Or Recreational [...] Functional Status Question Answer Note LastModified by [employer] Details LastModified Time Do you use any [...] Diagnosis SNOMED-CT Code Diagnosis ICD10 Code Diagnosis IMO Codes Diagnosis Note [id number] [facility] [address] [place] [address] 03/30/2018 14:00:17 03/30/2018 15:22:18 [id number] [address] [address] [address] [place] [address] 02/01/2020 16:34:44 02/01/2020 18:34:14 [id number] [address] [address] [place] [address] 11/22/2021 08:36:55 11/22/2021 11:09:01 [id number] [address] [address] [place] [address] 06/01/2018 11:22:31 06/01/2018 11:59:46 [id number] [address] [facility] [address] [place] [address] 12/11/2020 18:03:14 12/11/2020 18:44:16 [id number] [address] [address] [address] [place] [phone] 09/13/2021 08:19:48 09/13/2021 09:25:31 [id number] [facility]DE[facility] Marie [address] [address] [place] [address] 02/19/2024 09:11:37 02/19/2024 10:07:08 Viral gastroenteritis [id number] A08.4 Health Concerns Section Related Observation LastModified by Organization Detai ls LastModified Time None Recorded Concern Status LastModified by Organization Details LastModified Time None Recorded Advance Directives Directive None Recorded Payers Insurance Date Sequence Insurance Name Policy Number Policy Kumar Covered Member ID Kumar Member ID Guarantor Name 03/01/2024 1 [facility] [id number] Omayra Wylie [id number] Omayra Wylie 02/19/2024 1 [facility] [id number] Omayra Carr Rolfjayabelino [id number] Omayra Inessa 05/12/2022 [facility] Occ Med Generic (Move To Hold) [[id number]] Oamyra Inessa Notes Date Note Type Note Provider Name and Address Organization Details Recorded Time 4 text/html COVID-19 SymptomsReported by PatientUpper Respiratory SymptomsFor associated symptoms, patient reportsdiarrhea,nause a, andbody achesbut reportsno sputum productionandno wheezing. For covid-19 signs and symptoms, patient reportsheadache same,vomiting or diarrhea same, andfatigue same. For severity, patient reportsmild (cramping preceeding diarrhea episodes). SUDEEP Meyer [address] [place], [address], [place] - [facility] 02/19/2024 10:06:35 OBGyn Episode No OBEpisode recorded.
[2025-06-11 22:30] LABS: Bacterial Vaginosis PCR NEGATIVE (Negative); Candida Group PCR NOT DETECTED (Not Detect); Candida glab krusei PCR NOT DETECTED (Not Detect); Trichomonas vaginalis PCR NOT DETECTED (Not Detect)
== END 2025-06-11 08:57 | disposition home or self-care (01) ==
LOC: HO.LNP 08:56
PROVIDERS: PCP Internal Medicine; Visit Provider Advanced Practice Midwife
DX: Z01.419 Encounter for gynecological examination (general) (routine) without abnormal findings (principal); N89.8 Other specified noninflammatory disorders of vagina; Z20.2 Contact with and (suspected) exposure to infections with a predominantly sexual mode of transmission
CPT/HCPCS: 81515

== ENCOUNTER 2025-06-11 08:56 | Outpatient (AMB) | payer OTHER, SELFPAY ==
[2025-06-11 09:02] VITALS: BP 124/82; BMI 27.9
--- NOTE | 2025-06-11 09:02 | A.OFFVIS_ITS ---
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 Operator Required: No Senior Environmental Engineer: Senior Environmental Engineer Present (Melissa Jacobo CMA) Allergies No Known Allergies Allergy (Verified 06/11/25 09:04) Medication List - Last Reconciled 06/11/25 by Danielle Torres CNM albuterol sulfate 90 mcg/actuation 2 puffs inhalation Q6H PRN buspirone 7.5 mg PO BID deuruxolitinib (Leqselvi) 8 mg PO BID minoxidil 1.25 mg PO BID Is last menstrual period known: Yes Last menstrual period: 05/29/25 HPI Comments Details: Pt is informed of HERMELINDO blake listening for clinical documentation and agrees to its use during the visit Pt 30 year old female presenting 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 She has the following concerns: The patient is a and evaluation for a possible yeast infection. She reports feeling that things have been a little off vaginally for the past couple of weeks but denies any obvious symptoms, odor, or discharge today. She is in a relationship x 8 yr. She denies any issues of DV, declines gc/ct screening Exercise: limited Nutrition/calcium: adequate intake Contraception: her has had a vasectomy, and they do not plan to have children. she reports normal monthly periods w/o bothersome sx. Last Pap: 2023 , Results: Neg Last mammo: [ ], Results [ ] Her surgical history is notable for a fibroadenoma removal. She also had a breast cyst at the 1 o'clock position which has since resolved. Her family history is significant for breast cancer in an aunt. [facility] Medical History Complex cyst of left ovary Cat bite Vitamin D deficiency Generalized anxiety disorder Irritable bowel syndrome with constipation History of alopecia Right ovarian cyst Acne vulgaris Mild intermittent asthma Fibroadenoma of right breast (Unknown) Surgical History Hx of wisdom tooth extraction Family History Paternal Grandfather Colon cancer Maternal Grandmother Mesothelioma Maternal Uncle Substance use disorder Mental health disorder Alcoholism Brother Substance use disorder Alcoholism Maternal Grandmother Substance use disorder Mental health disorder Maternal Grandfather Substance use disorder Maternal Aunt Mental health disorder Breast cancer Social History Housing: Condominium Alcohol intake: never Patient Tobacco Use Status: Never used Tobacco e-Cigarette/Vaping Use: Never Used service: No Current occupational status: employed 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 Sexual orientation: Straight/Heterosexual Gender identity: Female Cognitive needs: No Hearing needs: No Vision needs: No Female Reproductive History Menstrual Age of Menarche: 13 Duration of menses: 6-7 days Date of last menstrual period: 05/29/25 control method: none Total pregnancies: 0 Date of last pap smear: 05/28/24 History of abnormal pap smear: No Review of Systems Const Reports no additional complaints Eyes Reports no additional complaints ENT Reports no additional complaints Card Reports no additional complaints Resp Reports no additional complaints GI Reports no additional complaints Reports as per [facility] Skin/Breast Reports system reviewed and no additional complaints, except as documented Physical Exam Vital Signs: Last Vital Signs BP 124/82 06/11/25 09:02 BMI result Body Mass Index 27.9 Const General: cooperative, healthy appearing and no acute distress Orientation/consciousness: patient oriented x3 HEENT Head: Yes normal to inspection and Yes normocephalic Ears: external ears normal General nose exam: No nasal discharge present Neck Neck: Yes normal visual inspection Chest Breast/axilla inspection: normal inspection of the breasts (old surgical scar right breast 1 o'clock), normal inspection of the axillae and Other (No skin changes, peau d orange, or nipple discharge noted) Breast/axilla palpation: normal palpation of the breasts, normal palpation of the axillae and no axillary lymphadenopathy Resp Effort & Inspection: normal respiratory effort and able to speak in complete sentences GI Inspection: No distended Palpation (GI): Soft to palpation, nontender and no masses Percussion: Yes normal to percussion Rectal Exam - Female: External hemorrhoid(s) present External Female Exam: normal external appearance and normal appearance of the urethra Speculum Exam - Vagina: normal appearance of the vagina and normal vaginal discharge Speculum Exam - Cervix: normal appearance of the cervix and normal palpation (neg CMT) Bimanual exam- vagina & uterus: normal bimanual exam, normal palpation (neg CMT), uterine mobility normal and non-tender Bimanual Exam- Adnexa, other: no masses and No adnexal tenderness Skin General skin exam: no rashes or lesions noted Neuro General: patient oriented x3 and moves all extremities Extrem General: Yes full ROM Psych Speech and movement: Normal speech and movement present Affect: normal affect Attitude: cooperative Thought process: Normal thought process present Assessment & Plan Assessment & Plan (1) Well woman exam with routine gynecological exam: Code(s): Z01.419 - Encounter for gynecological examination (general) (routine) without abnormal findings Plan: During the visit, the following areas of concern were addressed: Regular exercise Healthy lifestyle Domestic violence Health Maintenance and Screening -Reviewed ASCCP guidelines for Paps and yearly (bi-yearly ) pelvic exam. -Reviewed and encouraged diet and exercise for cardiovascular and bone health -Reviewed breast self-awareness. Importance of yearly mammogram after age 40 (earlier if first-degree relative with breast cancer at a younger age ) Discuss use of 3 times per week weight-bearing exercise, vitamin D3 and servings of dietary calcium daily for bone health. -continue to follow with PCP for general medical care, immunizations. Family and personal history of cancer reviewed. The patient has BMI: 27 Approaches towards weight loss are discussed including burning more calories than one takes in by frequent, small meals, portion control, avoiding eating before bedtime, regular exercise with an emphasis on duration rather than intensity, strength training exercise. RTO one year or sooner remi Torres CNM Note about provider documentation : If you or the patient named in this chart and are reviewing your medical notes, please note that medical documentation is often written with abbreviations and medical terminology, and directed for other providers who may be involved in your care as well. Documentation is critical to record what has happened, what tests were ordered, and so they are interpreted with the resulting diagnoses. These notes have been made available for patient review but not specifically written for the patient. Important health information is always given to my patients in clinical instructions. Please review your after visit summary and our contact our clinical staff if you have any questions. (2) Screening breast examination: Code(s): Z12.39 - Encounter for other screening for malignant neoplasm of breast (3) Vaginal discharge: Code(s): N89.8 - Other specified noninflammatory disorders of vagina Plan 1. Annual Gynecological Examination The patient is a 30-year-old female presenting for a routine annual exam. Her last cervical cancer screen was negative, and she is not due for repeat screening until 2026. A clinical breast exam and pelvic exam were performed. Plan to have her return in one year for her next annual exam. 2. Vaginal Discharge The patient expressed concern about a possible yeast infection due to feeling off recently, though she is asymptomatic today. Examination revealed a small amount of likely physiologic discharge. Plan to test a vaginal swab for confirmation. The patient will be contacted with any abnormal results. 3. Health Maintenance The patient has a history of a fibroadenoma and a resolved breast cyst. Plan to continue with annual clinical breast exams. Discussed benefits of exercise and adequate dietary calcium. Orders: Orders Bacterial Vaginosis Panel Today Z01.419 - Encounter for gynecological examination (general) (routine) without abnormal findings Coding Level of Care Code Est Pt Prev Care 18-39y(23916) Diagnoses Well woman exam with routine gynecological exam Z01.419 Screening breast examination Z12.39 Vaginal discharge N89.8
--- OUTSIDE RECORDS SUMMARY | 2025-06-11 11:04 | XMS_ITS | Clinical Summary ---
Author Organization [facility] Prior to 11/10/24 Address [address] [place] [address] Care Team Providers Care Small Package And Bundle Sorter Clerk Name Role Phone Merissa López MD Primary Care Provider [phone] Allergies No known active allergies Medications Medication [...] age to complete this topic Care Teams Small Package And Bundle Sorter Clerk Relationship Specialty Start Date End Date Merissa López MD PCP - General Internal Medicine 04/02/20
--- OUTSIDE RECORDS SUMMARY | 2025-06-11 11:04 | XMS_ITS | Clinical Summary ---
Author Organization [facility] it Address [address] [place] [address] Care Team Providers Care Federal Air Marshal Name Role Phone Merissa López MD Primary Care Provider [phone] Surgical History Surgery Date Site/Laterality Comments WISDOM [...] on file Sexual Orientation Not on file Plan of Treatment Health Maintenance Due Date [...] RESULTING AGENCY - 10/04/2018 2:55 PM EDT [id number] THINPREP PAP, IMAGED: NEGATIVE FOR SQUAMOUS INTRAEPITHELIAL [...] Recently Relevant to Health Maintenance Care Teams Federal Air Marshal Relationship Specialty Start Date End Date O'Bermeo, Merissa M, MD PCP - General Internal Medicine 04/02/20
--- OUTSIDE RECORDS SUMMARY | 2025-06-11 11:04 | XMS_ITS | Clinical Summary ---
Author Organization [facility] Address [address] [place] [address] Care Team Providers Care Sociology Teacher Name Role Phone Unavailable Primary Care Provider Unavailabl e Medications * This document contains information received from the source organization and may not represent a complete record from that organization. Hospital, Clinic, or Other Facility Administered Medication Ordered Dose Route Frequency Start Date End Date Status [facility] [id number]-[id number] 12mg, 8mg, 4mg or placebo tablet [...] adult (Td q 10,TDAP once) 06/19/2028 019 Meningococcal B Vaccine Aged Out No l onger eligible based on patient's age to complete this topic Meningococcal Vaccine Aged Out No sidra chelsey eligible based on patient's age to complete this topic Pneumococcal Vaccine (2 - 49 years) Aged Out No longer eligible b ased on patient's age to complete this topic
== END 2025-06-11 09:45 | disposition home or self-care (01) ==
LOC: HO.HWSM 08:56
PROVIDERS: PCP Internal Medicine; Visit Provider Advanced Practice Midwife
DX: Z01.419 Encounter for gynecological examination (general) (routine) without abnormal findings (principal); Z12.39 Encounter for other screening for malignant neoplasm of breast; N89.8 Other specified noninflammatory disorders of vagina
CPT/HCPCS: 99395; 99459